=== PATIENT | male | born 1970 | race Caucasian/White ===

== ENCOUNTER 2016-07-07 12:52 | Emergency (ER) | payer MEDICAID ==
[~2016-07-07] VITALS: Ht 195.6 cm; Wt 140.9 kg
[~2016-07-07 12:52] MED LIST: ALBU8HFA IH; ALPR0.5T8 PO; ATOR20TA86 PO; DULO60CA44 PO; FLUO-191 PO; GABA-531 PO; HYDR-305 PO; HYDR25TA PO; INSNOV SQ; INSU100V12 SQ; LISI-660 PO; METF500T4 PO; NORT25 PO; PIPE3.379 IV; TAMS0.4C32 PO; VANC1.5P9 IV; ZOSY3375FZ IV
[2016-07-07 13:26] LABS: GLUCOSE,POINT OF CARE 444 MG/DL (70-110)
[2016-07-07 16:41] LABS: GLUCOSE,POINT OF CARE 508 MG/DL (70-110)
[2016-07-07 16:46] LABS: BASOPHILS % (AUTO) 1.1 % (0.0-2.0); EOSINOPHILS % (AUTO) 0.2 % (1.0-6.0); HEMATOCRIT 45.6 % (41-53); HEMOGLOBIN 15.1 g/dL (13.5-17.5); LYMPHOCYTES # (AUTO) 5.1 K/uL (1.0-4.8); LYMPHOCYTES % (AUTO) 35.5 % (22.0-44.0); MEAN CORPUSCULAR HEMOGLOBIN 27.1 pg (26.0-34.0); MEAN CORPUSCULAR VOLUME 82 fL (80-100); MONOCYTES # (AUTO) 0.9 K/uL (0.1-1.0); MONOCYTES % (AUTO) 6.4 % (2.0-9.0); NEUTROPHILS # (AUTO) 8.1 K/uL (1.8-7.7); NEUTROPHILS % (AUTO) 56.8 % (40.0-70.0); PLATELET COUNT (AUTO) 405 K/uL (150-450); RED BLOOD CELL COUNT(AUTO) 5.57 MIL/uL (4.50-5.90); RED CELL DISTRIBUTION WIDTH 14.7 % (11.5-14.5); WHITE BLOOD COUNT (AUTO) 14.3 K/uL (4.5-11.0)
[2016-07-07 17:09] LABS: ALANINE AMINOTRANSFERASE 27 U/L (12-78); ALBUMIN 3.4 g/dL (3.4-5.0); ANION GAP 11 mmol/L (8-16); ASPARTATE AMINOTRANSFERASE 11 U/L (15-37); BILIRUBIN,TOTAL 0.2 mg/dL (0.1-1.0); CALCIUM, TOTAL 8.8 mg/dL (8.8-10.5); CARBON DIOXIDE 25 mmol/L (22-29); CHLORIDE 91 mmol/L (98-107); GLOMERULAR FILTR. RATE CALC > 60 mL/min (>60); POTASSIUM 4.4 mmol/L (3.5-5.1); SODIUM SERUM 127 mmol/L (136-145); TOTAL PROTEIN, SERUM 8.1 g/dL (6.4-8.2); UREA NITROGEN, BLOOD 14 mg/dL (7-18)
[2016-07-07] MEDS ORDERED: INSULIN REGULAR, HUMAN 100 UNITS/ML SQ ONE (17:45)
[2016-07-07 18:06] LABS: ERYTHROCYTE SEDIMENTATION RATE 20 MM/HR (0-15)
[2016-07-07 18:14] VITALS: BP 121/89
[2016-07-07] MEDS ORDERED: HYDROCODONE/ACETAMINOPHEN 5-325 MG TABLET PO ONE (18:30)
== END 2016-07-07 18:32 | disposition home or self-care (01) ==
LOC: EMS 12:54
DX: E11.69 Type 2 diabetes mellitus with other specified complication (principal); M86.9 Osteomyelitis, unspecified; I11.9 Hypertensive heart disease without heart failure; F17.210 Nicotine dependence, cigarettes, uncomplicated; Z79.4 Long term (current) use of insulin
CPT/HCPCS: 36415; 73620; 80053; 82962; 85025; 85651; 96372; 99285; J1815

== ENCOUNTER 2016-07-14 14:17 | Inpatient (IN) | payer MEDICAID ==
[~2016-07-14] VITALS: Ht 195.6 cm; Wt 140.9 kg
[~2016-07-14 14:17] MED LIST changes: -PIPE3.379 IV; -VANC1.5P9 IV; -ZOSY3375FZ IV
[2016-07-14 14:46] LABS: GLUCOSE,POINT OF CARE 445 MG/DL (70-110)
[2016-07-14] MEDS ORDERED: MORPHINE SULFATE 4 MG/ML SYRINGE IVP ONE (17:15)
[2016-07-14] MEDS ORDERED: ONDANSETRON HCL 4 MG/2 ML VIAL IVP ONE (17:15)
[2016-07-14 17:28] LABS: BASOPHILS % (AUTO) 0.8 % (0.0-2.0); EOSINOPHILS % (AUTO) 0.1 % (1.0-6.0); HEMATOCRIT 45.1 % (41-53); HEMOGLOBIN 14.8 g/dL (13.5-17.5); LYMPHOCYTES # (AUTO) 4.2 K/uL (1.0-4.8); LYMPHOCYTES % (AUTO) 30.9 % (22.0-44.0); MEAN CORPUSCULAR HGB CONC 32.8 G/dL (31.0-37.0); MEAN CORPUSCULAR VOLUME 82 fL (80-100); MONOCYTES # (AUTO) 1.5 K/uL (0.1-1.0); MONOCYTES % (AUTO) 11.1 % (2.0-9.0); NEUTROPHILS # (AUTO) 7.8 K/uL (1.8-7.7); NEUTROPHILS % (AUTO) 57.1 % (40.0-70.0); PLATELET COUNT (AUTO) 491 K/uL (150-450); RED BLOOD CELL COUNT(AUTO) 5.47 MIL/uL (4.50-5.90); WHITE BLOOD COUNT (AUTO) 13.6 K/uL (4.5-11.0)
[2016-07-14 18:38] LABS: ALANINE AMINOTRANSFERASE 27 U/L (12-78); ALBUMIN 3.2 g/dL (3.4-5.0); ANION GAP 6 mmol/L (8-16); ASPARTATE AMINOTRANSFERASE 14 U/L (15-37); BILIRUBIN,TOTAL 0.2 mg/dL (0.1-1.0); CALCIUM, TOTAL 9.5 mg/dL (8.8-10.5); CARBON DIOXIDE 29 mmol/L (22-29); CHLORIDE 90 mmol/L (98-107); CREATININE 1.19 mg/dL (0.60-1.30); GLOMERULAR FILTR. RATE CALC > 60 mL/min (>60); POTASSIUM 4.2 mmol/L (3.5-5.1); SODIUM SERUM 125 mmol/L (136-145); TOTAL PROTEIN, SERUM 8.4 g/dL (6.4-8.2); UREA NITROGEN, BLOOD 12 mg/dL (7-18)
[2016-07-14] MEDS ORDERED: 0.9% SODIUM CHLORIDE 10 ML SYRINGE IVP PRN (18:45)
[2016-07-14] MEDS ORDERED: ONDANSETRON HCL 4 MG/2 ML VIAL IVP PRN ×2 (18:45→20:30)
[2016-07-14] MEDS ORDERED: SODIUM CHLORIDE 0.9% 1,000 ML IV ONE ×2 (18:45→20:45)
[2016-07-14] MEDS ORDERED: ACETAMINOPHEN 325 MG TABLET PO PRN ×2 (18:45→20:30)
[2016-07-14] MEDS ORDERED: VANCOMYCIN HCL 1 GM/D5% WATER 200 ML IV ONE (20:00)
[2016-07-14 20:11] LABS: GLUCOSE,POINT OF CARE 371 MG/DL (70-110)
[2016-07-14] MEDS ORDERED: OxyCODONE HCL/ACETAMINOPHEN 5-325 MG TABLET PO PRN (20:30)
[2016-07-14] MEDS ORDERED: ALBUTEROL SULFATE 2.5 MG/0.5 ML NEB SOLUTION NEB PRN (20:30)
[2016-07-14] MEDS ORDERED: INSULIN REGULAR, HUMAN 100 UNITS/ML IVP ONE (20:30)
[2016-07-14] MEDS ORDERED: DEXTROSE 50%-WATER 25 GM/50 ML SYRINGE IVP PRN (20:45)
[2016-07-14] MEDS ORDERED: INSULIN DETEMIR 100 UNITS/ML SQ SCH (21:00)
[2016-07-14] MEDS: LISINOPRIL 20 MG TABLET PO SCH (21:14)
[2016-07-14] MEDS: SIMVASTATIN 20 MG TABLET PO SCH (21:14)
[2016-07-14] MEDS: DOCUSATE SODIUM 100 MG CAPSULE PO SCH (21:14)
[2016-07-14 21:28] VITALS: BP 118/74
[2016-07-14] MEDS: MORPHINE SULFATE 2 MG/ML SYRINGE IVP PRN (21:39)
[2016-07-14 21:45] LABS: GLUCOSE COMMENT 1 Received Meds; GLUCOSE,POINT OF CARE 294 MG/DL (70-110)
[2016-07-14] MEDS: ALPRAZolam 0.5 MG TABLET PO PRN (23:02)
[2016-07-14] MEDS: HEPARIN SODIUM,PORCINE 5,000 UNITS/ML VIAL SQ SCH (23:03)
[2016-07-14] MEDS: INSULIN ASPART 100 UNITS/ML SQ PRN (23:03)
[2016-07-14 23:07] VITALS: BP 134/76
[2016-07-14 23:57] LABS: GLUCOSE COMMENT 1 Received Meds; GLUCOSE,POINT OF CARE 350 MG/DL (70-110)
[2016-07-15] MEDS: INSULIN ASPART 100 UNITS/ML SQ PRN ×4 (05:49→21:34)
[2016-07-15] MEDS: MORPHINE SULFATE 2 MG/ML SYRINGE IVP PRN ×4 (05:50→20:53)
[2016-07-15 05:54] VITALS: BP 131/77
[2016-07-15 06:15] LABS: GLUCOSE COMMENT 1 Received Meds; GLUCOSE,POINT OF CARE 329 MG/DL (70-110)
[2016-07-15 06:31] LABS: BASOPHILS % (AUTO) 0.6 % (0.0-2.0); EOSINOPHILS % (AUTO) 0.1 % (1.0-6.0); HEMATOCRIT 43.3 % (41-53); HEMOGLOBIN 13.6 g/dL (13.5-17.5); LYMPHOCYTES # (AUTO) 2.9 K/uL (1.0-4.8); LYMPHOCYTES % (AUTO) 21.9 % (22.0-44.0); MEAN CORPUSCULAR HEMOGLOBIN 26.4 pg (26.0-34.0); MEAN CORPUSCULAR HGB CONC 31.4 G/dL (31.0-37.0); MEAN CORPUSCULAR VOLUME 84 fL (80-100); MONOCYTES # (AUTO) 1.4 K/uL (0.1-1.0); MONOCYTES % (AUTO) 10.6 % (2.0-9.0); NEUTROPHILS # (AUTO) 8.9 K/uL (1.8-7.7); NEUTROPHILS % (AUTO) 66.8 % (40.0-70.0); PLATELET COUNT (AUTO) 442 K/uL (150-450); RED BLOOD CELL COUNT(AUTO) 5.14 MIL/uL (4.50-5.90); RED CELL DISTRIBUTION WIDTH 15.2 % (11.5-14.5); WHITE BLOOD COUNT (AUTO) 13.3 K/uL (4.5-11.0)
[2016-07-15 06:50] LABS: ANION GAP 7 mmol/L (8-16); CARBON DIOXIDE 31 mmol/L (22-29); CHLORIDE 96 mmol/L (98-107); CREATININE 1.04 mg/dL (0.60-1.30); GLOMERULAR FILTR. RATE CALC > 60 mL/min (>60); POTASSIUM 4.9 mmol/L (3.5-5.1); SODIUM SERUM 134 mmol/L (136-145); UREA NITROGEN, BLOOD 10 mg/dL (7-18)
[2016-07-15 07:23] VITALS: BP 101/57
[2016-07-15] MEDS ORDERED: GADOBUTROL 1 MMOL/ML 10 ML VIAL IVP ONE (08:33)
[2016-07-15] MEDS: PANTOPRAZOLE SODIUM 40 MG DR TABLET PO SCH (10:21)
[2016-07-15] MEDS: HEPARIN SODIUM,PORCINE 5,000 UNITS/ML VIAL SQ SCH ×2 (10:21→18:01)
[2016-07-15] MEDS: ASPIRIN 81 MG CHEWABLE TABLET PO SCH (10:22)
[2016-07-15] MEDS: DOCUSATE SODIUM 100 MG CAPSULE PO SCH ×2 (10:22→20:11)
[2016-07-15] MEDS: LISINOPRIL 20 MG TABLET PO SCH (10:22)
[2016-07-15 11:25] VITALS: BP 132/69
[2016-07-15 12:11] LABS: GLUCOSE,POINT OF CARE 324 MG/DL (70-110)
[2016-07-15 16:15] VITALS: BP 149/89
[2016-07-15 18:11] LABS: GLUCOSE,POINT OF CARE 303 MG/DL (70-110)
[2016-07-15 19:07] VITALS: BP 128/82
[2016-07-15] MEDS: SIMVASTATIN 20 MG TABLET PO SCH (20:12)
[2016-07-15] MEDS ORDERED: INSULIN DETEMIR 100 UNITS/ML SQ SCH (21:00)
[2016-07-15 21:31] LABS: GLUCOSE COMMENT 1 Received Meds; GLUCOSE,POINT OF CARE 280 MG/DL (70-110)
[2016-07-15] MEDS: NORTRIPTYLINE HCL 25 MG CAPSULE PO SCH (21:34)
[2016-07-15] MEDS: GABAPENTIN 300 MG CAPSULE PO SCH (21:34)
[2016-07-15] MEDS: FLUoxetine HCL 20 MG CAPSULE PO SCH (21:35)
[2016-07-15] MEDS: ALPRAZolam 0.5 MG TABLET PO PRN (21:35)
[2016-07-15] MEDS: TAMSULOSIN HCL 0.4 MG CAPSULE PO SCH (21:35)
[2016-07-15 23:59] VITALS: BP 104/67
[2016-07-16] MEDS: HEPARIN SODIUM,PORCINE 5,000 UNITS/ML VIAL SQ SCH ×4 (00:40→23:50)
[2016-07-16] MEDS: MORPHINE SULFATE 2 MG/ML SYRINGE IVP PRN ×6 (00:59→21:23)
[2016-07-16 04:29] VITALS: BP 115/69
[2016-07-16] MEDS: INSULIN ASPART 100 UNITS/ML SQ PRN ×4 (05:15→20:37)
[2016-07-16 06:01] LABS: GLUCOSE COMMENT 1 Received Meds; GLUCOSE,POINT OF CARE 378 MG/DL (70-110)
[2016-07-16 07:14] VITALS: BP 131/84
[2016-07-16] MEDS ORDERED: HYDROCHLOROTHIAZIDE 25 MG TABLET PO SCH (09:00)
[2016-07-16] MEDS: DULoxetine HCL 60 MG CAPSULE PO SCH (09:02)
[2016-07-16] MEDS: ASPIRIN 81 MG CHEWABLE TABLET PO SCH (09:03)
[2016-07-16] MEDS: LISINOPRIL 5 MG TABLET PO SCH (09:03)
[2016-07-16] MEDS: GABAPENTIN 300 MG CAPSULE PO SCH ×3 (09:03→20:25)
[2016-07-16] MEDS: TAMSULOSIN HCL 0.4 MG CAPSULE PO SCH (09:04)
[2016-07-16] MEDS: PANTOPRAZOLE SODIUM 40 MG DR TABLET PO SCH (09:04)
[2016-07-16] MEDS: DOCUSATE SODIUM 100 MG CAPSULE PO SCH ×2 (09:05→20:24)
[2016-07-16 11:27] LABS: GLUCOSE,POINT OF CARE 340 MG/DL (70-110)
[2016-07-16] MEDS: NICOTINE 21 MG/24 HOUR PATCH TD SCH (11:32)
[2016-07-16 12:19] VITALS: BP 122/80
[2016-07-16 15:40] VITALS: BP 110/75
[2016-07-16 18:45] LABS: GLUCOSE,POINT OF CARE 423 MG/DL (70-110)
[2016-07-16 19:39] VITALS: BP 114/74
[2016-07-16] MEDS: SIMVASTATIN 20 MG TABLET PO SCH (20:24)
[2016-07-16] MEDS: FLUoxetine HCL 20 MG CAPSULE PO SCH (20:25)
[2016-07-16] MEDS: NORTRIPTYLINE HCL 25 MG CAPSULE PO SCH (20:25)
[2016-07-16] MEDS ORDERED: INSULIN DETEMIR 100 UNITS/ML SQ SCH (21:00)
[2016-07-16] MEDS: ALPRAZolam 0.5 MG TABLET PO PRN (21:23)
[2016-07-16 23:50] VITALS: BP 144/93
[2016-07-16] MEDS: AMPICILLIN SODIUM/SULBACTAM NA 3 GM in SODIUM CHLORIDE 0.9% 100 ML IV SCH (23:50)
[2016-07-17] MEDS: MORPHINE SULFATE 2 MG/ML SYRINGE IVP PRN ×6 (02:02→23:04)
[2016-07-17 03:06] LABS: GLUCOSE,POINT OF CARE 295 MG/DL (70-110)
[2016-07-17] MEDS: AMPICILLIN SODIUM/SULBACTAM NA 3 GM in SODIUM CHLORIDE 0.9% 100 ML IV SCH ×4 (04:49→22:09)
[2016-07-17 05:05] VITALS: BP 123/73
[2016-07-17] MEDS: INSULIN ASPART 100 UNITS/ML SQ PRN ×4 (06:23→20:37)
[2016-07-17 07:32] LABS: GLUCOSE,POINT OF CARE 335 MG/DL (70-110)
[2016-07-17 07:34] LABS: BASOPHILS % (AUTO) 0.3 % (0.0-2.0); EOSINOPHILS % (AUTO) 0.2 % (1.0-6.0); HEMATOCRIT 42.4 % (41-53); HEMOGLOBIN 13.6 g/dL (13.5-17.5); LYMPHOCYTES % (AUTO) 46.9 % (22.0-44.0); MEAN CORPUSCULAR HEMOGLOBIN 26.5 pg (26.0-34.0); MEAN CORPUSCULAR HGB CONC 32.1 G/dL (31.0-37.0); MEAN CORPUSCULAR VOLUME 83 fL (80-100); MONOCYTES # (AUTO) 1.4 K/uL (0.1-1.0); MONOCYTES % (AUTO) 13.5 % (2.0-9.0); NEUTROPHILS # (AUTO) 4.1 K/uL (1.8-7.7); NEUTROPHILS % (AUTO) 39.1 % (40.0-70.0); PLATELET COUNT (AUTO) 464 K/uL (150-450); RED BLOOD CELL COUNT(AUTO) 5.13 MIL/uL (4.50-5.90); RED CELL DISTRIBUTION WIDTH 15.4 % (11.5-14.5); WHITE BLOOD COUNT (AUTO) 10.6 K/uL (4.5-11.0)
[2016-07-17 07:44] LABS: ANION GAP 9 mmol/L (8-16); CALCIUM, TOTAL 8.9 mg/dL (8.8-10.5); CARBON DIOXIDE 28 mmol/L (22-29); CHLORIDE 96 mmol/L (98-107); CREATININE 1.19 mg/dL (0.60-1.30); GLOMERULAR FILTR. RATE CALC > 60 mL/min (>60); SODIUM SERUM 133 mmol/L (136-145); UREA NITROGEN, BLOOD 13 mg/dL (7-18)
[2016-07-17 08:19] VITALS: BP 119/72
[2016-07-17] MEDS: DOCUSATE SODIUM 100 MG CAPSULE PO SCH ×2 (08:43→20:35)
[2016-07-17] MEDS: GABAPENTIN 300 MG CAPSULE PO SCH ×3 (08:43→20:35)
[2016-07-17] MEDS: ASPIRIN 81 MG CHEWABLE TABLET PO SCH (08:44)
[2016-07-17] MEDS: TAMSULOSIN HCL 0.4 MG CAPSULE PO SCH (08:44)
[2016-07-17] MEDS: LISINOPRIL 5 MG TABLET PO SCH (08:44)
[2016-07-17] MEDS: DULoxetine HCL 60 MG CAPSULE PO SCH (08:44)
[2016-07-17] MEDS: PANTOPRAZOLE SODIUM 40 MG DR TABLET PO SCH (08:45)
[2016-07-17] MEDS: HEPARIN SODIUM,PORCINE 5,000 UNITS/ML VIAL SQ SCH ×3 (08:45→23:05)
[2016-07-17] MEDS: NICOTINE 21 MG/24 HOUR PATCH TD SCH (11:07)
[2016-07-17 11:47] VITALS: BP 144/94
[2016-07-17 11:47] LABS: GLUCOSE,POINT OF CARE 355 MG/DL (70-110)
[2016-07-17 16:04] VITALS: BP 147/92
[2016-07-17] MEDS ORDERED: FLUCONAZOLE 200 MG TABLET PO ONE (16:30)
[2016-07-17] MEDS: AMINO ACIDS/PROTEIN HYDROLYS 30 ML TUBE PO SCH (18:00)
[2016-07-17 19:11] LABS: GLUCOSE,POINT OF CARE 278 MG/DL (70-110)
[2016-07-17 19:33] VITALS: BP 138/85
[2016-07-17] MEDS: FLUoxetine HCL 20 MG CAPSULE PO SCH (20:34)
[2016-07-17] MEDS: SIMVASTATIN 20 MG TABLET PO SCH (20:35)
[2016-07-17] MEDS: NORTRIPTYLINE HCL 25 MG CAPSULE PO SCH (20:35)
[2016-07-17] MEDS ORDERED: INSULIN DETEMIR 100 UNITS/ML SQ SCH (21:00)
[2016-07-17 21:51] LABS: GLUCOSE COMMENT 1 Received Meds; GLUCOSE,POINT OF CARE 330 MG/DL (70-110)
[2016-07-17] MEDS ORDERED: SODIUM CHLORIDE 0.9% 500 ML IV ONE (22:34)
[2016-07-17] MEDS: ALPRAZolam 0.5 MG TABLET PO PRN (23:04)
[2016-07-17 23:06] VITALS: BP 137/84
[2016-07-18] MEDS: AMPICILLIN SODIUM/SULBACTAM NA 3 GM in SODIUM CHLORIDE 0.9% 100 ML IV SCH ×4 (04:02→22:07)
[2016-07-18 04:03] VITALS: BP 142/94
[2016-07-18] MEDS: MORPHINE SULFATE 2 MG/ML SYRINGE IVP PRN ×5 (04:27→22:05)
[2016-07-18] MEDS: INSULIN ASPART 100 UNITS/ML SQ PRN ×4 (06:02→20:56)
[2016-07-18 06:12] LABS: GLUCOSE COMMENT 1 Received Meds; GLUCOSE,POINT OF CARE 432 MG/DL (70-110)
[2016-07-18] MEDS ORDERED: INSULIN ASPART 100 UNITS/ML SQ ONE (06:15)
[2016-07-18 08:09] VITALS: BP 129/84
[2016-07-18] MEDS: LISINOPRIL 5 MG TABLET PO SCH (09:19)
[2016-07-18] MEDS: DULoxetine HCL 60 MG CAPSULE PO SCH (09:19)
[2016-07-18] MEDS: ASPIRIN 81 MG CHEWABLE TABLET PO SCH (09:19)
[2016-07-18] MEDS: HEPARIN SODIUM,PORCINE 5,000 UNITS/ML VIAL SQ SCH ×3 (09:19→23:59)
[2016-07-18] MEDS: GABAPENTIN 300 MG CAPSULE PO SCH ×3 (09:19→20:50)
[2016-07-18] MEDS: PANTOPRAZOLE SODIUM 40 MG DR TABLET PO SCH (09:20)
[2016-07-18] MEDS: FLUCONAZOLE 200 MG TABLET PO SCH (09:20)
[2016-07-18] MEDS: TAMSULOSIN HCL 0.4 MG CAPSULE PO SCH (09:20)
[2016-07-18] MEDS: DOCUSATE SODIUM 100 MG CAPSULE PO SCH ×2 (09:20→20:51)
[2016-07-18] MEDS: MULTIVITAMINS WITH MINERALS, THERAPEUTIC TABLET PO SCH (09:20)
[2016-07-18] MEDS: INSULIN DETEMIR 100 UNITS/ML SQ SCH (09:21)
[2016-07-18] MEDS: NICOTINE 21 MG/24 HOUR PATCH TD SCH (09:24)
[2016-07-18] MEDS: AMINO ACIDS/PROTEIN HYDROLYS 30 ML TUBE PO SCH ×2 (09:28→18:25)
[2016-07-18 12:57] VITALS: BP 135/105
[2016-07-18 13:17] LABS: GLUCOSE COMMENT 1 Received Meds; GLUCOSE,POINT OF CARE 256 MG/DL (70-110)
[2016-07-18 15:15] VITALS: BP 146/101
[2016-07-18 18:17] LABS: GLUCOSE COMMENT 1 Received Meds; GLUCOSE,POINT OF CARE 319 MG/DL (70-110)
[2016-07-18 19:20] VITALS: BP 123/87
[2016-07-18] MEDS: NORTRIPTYLINE HCL 25 MG CAPSULE PO SCH (20:51)
[2016-07-18] MEDS: SIMVASTATIN 20 MG TABLET PO SCH (20:51)
[2016-07-18] MEDS: FLUoxetine HCL 20 MG CAPSULE PO SCH (20:51)
[2016-07-18 20:57] LABS: GLUCOSE COMMENT 1 Received Meds; GLUCOSE,POINT OF CARE 347 MG/DL (70-110)
[2016-07-18] MEDS ORDERED: INSULIN DETEMIR 100 UNITS/ML SQ SCH (21:00)
[2016-07-18] MEDS: ALPRAZolam 0.5 MG TABLET PO PRN (22:05)
[2016-07-18 23:24] VITALS: BP 144/90
[2016-07-19] MEDS: MORPHINE SULFATE 2 MG/ML SYRINGE IVP PRN ×5 (03:12→21:07)
[2016-07-19] MEDS: AMPICILLIN SODIUM/SULBACTAM NA 3 GM in SODIUM CHLORIDE 0.9% 100 ML IV SCH ×4 (04:04→22:24)
[2016-07-19 05:27] VITALS: BP 136/99
[2016-07-19] MEDS: INSULIN ASPART 100 UNITS/ML SQ PRN ×4 (06:09→20:50)
[2016-07-19 07:12] LABS: GLUCOSE COMMENT 1 Received Meds; GLUCOSE,POINT OF CARE 362 MG/DL (70-110)
[2016-07-19 07:53] VITALS: BP 125/86
[2016-07-19] MEDS: AMINO ACIDS/PROTEIN HYDROLYS 30 ML TUBE PO SCH ×3 (08:00→18:16)
[2016-07-19] MEDS: HEPARIN SODIUM,PORCINE 5,000 UNITS/ML VIAL SQ SCH ×2 (09:22→16:34)
[2016-07-19] MEDS: DOCUSATE SODIUM 100 MG CAPSULE PO SCH ×2 (09:23→20:44)
[2016-07-19] MEDS: DULoxetine HCL 60 MG CAPSULE PO SCH (09:23)
[2016-07-19] MEDS: ASPIRIN 81 MG CHEWABLE TABLET PO SCH (09:23)
[2016-07-19] MEDS: FLUCONAZOLE 200 MG TABLET PO SCH (09:24)
[2016-07-19] MEDS: TAMSULOSIN HCL 0.4 MG CAPSULE PO SCH (09:24)
[2016-07-19] MEDS: MULTIVITAMINS WITH MINERALS, THERAPEUTIC TABLET PO SCH (09:25)
[2016-07-19] MEDS: PANTOPRAZOLE SODIUM 40 MG DR TABLET PO SCH (09:25)
[2016-07-19] MEDS: GABAPENTIN 300 MG CAPSULE PO SCH ×3 (09:25→20:44)
[2016-07-19] MEDS: LISINOPRIL 5 MG TABLET PO SCH (09:26)
[2016-07-19] MEDS: NICOTINE 21 MG/24 HOUR PATCH TD SCH (09:26)
[2016-07-19] MEDS: INSULIN DETEMIR 100 UNITS/ML SQ SCH ×2 (09:43→20:50)
[2016-07-19 11:17] LABS: GLUCOSE,POINT OF CARE 332 MG/DL (70-110)
[2016-07-19 11:22] VITALS: BP 144/88
[2016-07-19 15:20] VITALS: BP 129/91
[2016-07-19 17:11] LABS: GLUCOSE,POINT OF CARE 318 MG/DL (70-110)
[2016-07-19 20:17] VITALS: BP 140/89
[2016-07-19] MEDS: FLUoxetine HCL 20 MG CAPSULE PO SCH (20:44)
[2016-07-19] MEDS: SIMVASTATIN 20 MG TABLET PO SCH (20:44)
[2016-07-19] MEDS: NORTRIPTYLINE HCL 25 MG CAPSULE PO SCH (20:45)
[2016-07-19 20:57] LABS: GLUCOSE COMMENT 1 Received Meds; GLUCOSE,POINT OF CARE 319 MG/DL (70-110)
[2016-07-19] MEDS: ALPRAZolam 0.5 MG TABLET PO PRN (22:24)
[2016-07-20] MEDS: HEPARIN SODIUM,PORCINE 5,000 UNITS/ML VIAL SQ SCH ×3 (00:01→16:03)
[2016-07-20 00:11] VITALS: BP 117/77
[2016-07-20] MEDS: MORPHINE SULFATE 2 MG/ML SYRINGE IVP PRN ×6 (02:15→22:14)
[2016-07-20 04:19] VITALS: BP 140/92
[2016-07-20] MEDS: AMPICILLIN SODIUM/SULBACTAM NA 3 GM in SODIUM CHLORIDE 0.9% 100 ML IV SCH ×4 (04:20→21:13)
[2016-07-20] MEDS: INSULIN ASPART 100 UNITS/ML SQ PRN ×4 (06:10→21:29)
[2016-07-20 06:22] LABS: GLUCOSE COMMENT 1 Received Meds; GLUCOSE,POINT OF CARE 376 MG/DL (70-110)
[2016-07-20 07:25] VITALS: BP 139/90
[2016-07-20 07:28] LABS: BASOPHILS # (AUTO) 0.07 K/uL (0.00-0.20); BASOPHILS % (AUTO) 0.6 % (0.0-2.0); EOSINOPHILS # (AUTO) 0.15 K/uL (0.00-0.70); EOSINOPHILS % (AUTO) 1.22 % (1.0-6.0); HEMATOCRIT 40.1 % (41-53); HEMOGLOBIN 12.9 g/dL (13.5-17.5); LYMPHOCYTES # (AUTO) 5.6 K/uL (1.0-4.8); LYMPHOCYTES % (AUTO) 46.6 % (22.0-44.0); MEAN CORPUSCULAR HEMOGLOBIN 26.7 pg (26.0-34.0); MEAN CORPUSCULAR HGB CONC 32.1 G/dL (31.0-37.0); MEAN CORPUSCULAR VOLUME 83 fL (80-100); MONOCYTES # (AUTO) 1.1 K/uL (0.1-1.0); MONOCYTES % (AUTO) 9.1 % (2.0-9.0); NEUTROPHILS # (AUTO) 5.1 K/uL (1.8-7.7); NEUTROPHILS % (AUTO) 42.6 % (40.0-70.0); PLATELET COUNT (AUTO) 427 K/uL (150-450); RED BLOOD CELL COUNT(AUTO) 4.82 MIL/uL (4.50-5.90); RED CELL DISTRIBUTION WIDTH 15.2 % (11.5-14.5)
[2016-07-20 07:52] LABS: ANION GAP 6 mmol/L (8-16); CALCIUM, TOTAL 8.6 mg/dL (8.8-10.5); CARBON DIOXIDE 31 mmol/L (22-29); CHLORIDE 98 mmol/L (98-107); CREATININE 1.15 mg/dL (0.60-1.30); GLOMERULAR FILTR. RATE CALC > 60 mL/min (>60); POTASSIUM 4.3 mmol/L (3.5-5.1); SODIUM SERUM 135 mmol/L (136-145); UREA NITROGEN, BLOOD 14 mg/dL (7-18)
[2016-07-20] MEDS: MULTIVITAMINS WITH MINERALS, THERAPEUTIC TABLET PO SCH (09:02)
[2016-07-20] MEDS: LISINOPRIL 5 MG TABLET PO SCH (09:02)
[2016-07-20] MEDS: TAMSULOSIN HCL 0.4 MG CAPSULE PO SCH (09:02)
[2016-07-20] MEDS: DOCUSATE SODIUM 100 MG CAPSULE PO SCH ×2 (09:02→21:12)
[2016-07-20] MEDS: DULoxetine HCL 60 MG CAPSULE PO SCH (09:03)
[2016-07-20] MEDS: FLUCONAZOLE 200 MG TABLET PO SCH (09:03)
[2016-07-20] MEDS: ASPIRIN 81 MG CHEWABLE TABLET PO SCH (09:03)
[2016-07-20] MEDS: NICOTINE 21 MG/24 HOUR PATCH TD SCH (09:06)
[2016-07-20] MEDS: INSULIN DETEMIR 100 UNITS/ML SQ SCH ×2 (09:07→21:28)
[2016-07-20] MEDS: GABAPENTIN 300 MG CAPSULE PO SCH ×3 (09:12→21:11)
[2016-07-20] MEDS: PANTOPRAZOLE SODIUM 40 MG DR TABLET PO SCH (09:12)
[2016-07-20] MEDS: AMINO ACIDS/PROTEIN HYDROLYS 30 ML TUBE PO SCH ×2 (09:24→18:19)
[2016-07-20 11:20] VITALS: BP 130/87
[2016-07-20 14:52] LABS: GLUCOSE COMMENT 1 Received Meds; GLUCOSE,POINT OF CARE 280 MG/DL (70-110)
[2016-07-20 16:22] VITALS: BP 140/94
[2016-07-20 19:10] VITALS: BP 143/89
[2016-07-20 21:06] LABS: GLUCOSE COMMENT 1 Received Meds; GLUCOSE,POINT OF CARE 342 MG/DL (70-110)
[2016-07-20] MEDS: SIMVASTATIN 20 MG TABLET PO SCH (21:11)
[2016-07-20] MEDS: NORTRIPTYLINE HCL 25 MG CAPSULE PO SCH (21:12)
[2016-07-20] MEDS: FLUoxetine HCL 20 MG CAPSULE PO SCH (21:12)
[2016-07-20] MEDS: ALPRAZolam 0.5 MG TABLET PO PRN (22:14)
[2016-07-21] MEDS: HEPARIN SODIUM,PORCINE 5,000 UNITS/ML VIAL SQ SCH ×4 (00:13→23:21)
[2016-07-21 04:00] VITALS: BP 135/77
[2016-07-21] MEDS: MORPHINE SULFATE 2 MG/ML SYRINGE IVP PRN ×5 (04:43→21:15)
[2016-07-21] MEDS: AMPICILLIN SODIUM/SULBACTAM NA 3 GM in SODIUM CHLORIDE 0.9% 100 ML IV SCH ×4 (04:44→21:06)
[2016-07-21] MEDS: INSULIN ASPART 100 UNITS/ML SQ PRN ×4 (05:49→21:06)
[2016-07-21 06:22] LABS: GLUCOSE,POINT OF CARE 230 MG/DL (70-110)
[2016-07-21 06:22] LABS: GLUCOSE,POINT OF CARE 280 MG/DL (70-110)
[2016-07-21 07:52] VITALS: BP 119/82
[2016-07-21] MEDS: DOCUSATE SODIUM 100 MG CAPSULE PO SCH ×2 (08:14→21:05)
[2016-07-21] MEDS: ASPIRIN 81 MG CHEWABLE TABLET PO SCH (08:14)
[2016-07-21] MEDS: MULTIVITAMINS WITH MINERALS, THERAPEUTIC TABLET PO SCH (08:14)
[2016-07-21] MEDS: PANTOPRAZOLE SODIUM 40 MG DR TABLET PO SCH (08:14)
[2016-07-21] MEDS: TAMSULOSIN HCL 0.4 MG CAPSULE PO SCH (08:14)
[2016-07-21] MEDS: LISINOPRIL 5 MG TABLET PO SCH (08:14)
[2016-07-21] MEDS: FLUCONAZOLE 200 MG TABLET PO SCH (08:15)
[2016-07-21] MEDS: INSULIN DETEMIR 100 UNITS/ML SQ SCH ×2 (08:16→21:06)
[2016-07-21] MEDS: NICOTINE 21 MG/24 HOUR PATCH TD SCH (08:18)
[2016-07-21] MEDS: DULoxetine HCL 60 MG CAPSULE PO SCH (08:24)
[2016-07-21] MEDS: GABAPENTIN 300 MG CAPSULE PO SCH ×3 (08:36→21:04)
[2016-07-21] MEDS: AMINO ACIDS/PROTEIN HYDROLYS 30 ML TUBE PO SCH ×2 (08:39→18:00)
[2016-07-21 11:31] VITALS: BP 133/79
[2016-07-21 13:37] LABS: GLUCOSE COMMENT 1 Received Meds; GLUCOSE,POINT OF CARE 319 MG/DL (70-110)
[2016-07-21 16:24] VITALS: BP 124/77
[2016-07-21 19:53] VITALS: BP 112/69
[2016-07-21 20:26] LABS: GLUCOSE COMMENT 1 Received Meds; GLUCOSE,POINT OF CARE 269 MG/DL (70-110)
[2016-07-21] MEDS: FLUoxetine HCL 20 MG CAPSULE PO SCH (21:04)
[2016-07-21] MEDS: NORTRIPTYLINE HCL 25 MG CAPSULE PO SCH (21:04)
[2016-07-21] MEDS: SIMVASTATIN 20 MG TABLET PO SCH (21:05)
[2016-07-21] MEDS: ALPRAZolam 0.5 MG TABLET PO PRN (22:06)
[2016-07-21 22:56] LABS: GLUCOSE,POINT OF CARE 233 MG/DL (70-110)
[2016-07-21 23:37] VITALS: BP 110/86
[2016-07-22] MEDS: MORPHINE SULFATE 2 MG/ML SYRINGE IVP PRN ×6 (01:09→21:39)
[2016-07-22 04:55] VITALS: BP 110/72
[2016-07-22] MEDS: INSULIN ASPART 100 UNITS/ML SQ PRN ×4 (05:18→20:59)
[2016-07-22] MEDS: AMPICILLIN SODIUM/SULBACTAM NA 3 GM in SODIUM CHLORIDE 0.9% 100 ML IV SCH ×4 (05:18→21:39)
[2016-07-22 05:52] LABS: GLUCOSE,POINT OF CARE 307 MG/DL (70-110)
[2016-07-22 07:12] VITALS: BP 117/79
[2016-07-22] MEDS: GABAPENTIN 300 MG CAPSULE PO SCH ×3 (08:02→20:46)
[2016-07-22] MEDS: MULTIVITAMINS WITH MINERALS, THERAPEUTIC TABLET PO SCH (08:03)
[2016-07-22] MEDS: NICOTINE 21 MG/24 HOUR PATCH TD SCH (08:03)
[2016-07-22] MEDS: DOCUSATE SODIUM 100 MG CAPSULE PO SCH ×2 (08:03→20:46)
[2016-07-22] MEDS: PANTOPRAZOLE SODIUM 40 MG DR TABLET PO SCH (08:03)
[2016-07-22] MEDS: TAMSULOSIN HCL 0.4 MG CAPSULE PO SCH (08:03)
[2016-07-22] MEDS: ASPIRIN 81 MG CHEWABLE TABLET PO SCH (08:04)
[2016-07-22] MEDS: LISINOPRIL 5 MG TABLET PO SCH (08:04)
[2016-07-22] MEDS: DULoxetine HCL 60 MG CAPSULE PO SCH (08:04)
[2016-07-22] MEDS: HEPARIN SODIUM,PORCINE 5,000 UNITS/ML VIAL SQ SCH ×3 (08:05→23:46)
[2016-07-22] MEDS: INSULIN DETEMIR 100 UNITS/ML SQ SCH ×2 (08:38→20:55)
[2016-07-22] MEDS: FLUCONAZOLE 200 MG TABLET PO SCH (08:38)
[2016-07-22 11:10] VITALS: BP 125/77
[2016-07-22 11:22] LABS: GLUCOSE COMMENT 1 Received Meds; GLUCOSE,POINT OF CARE 384 MG/DL (70-110)
[2016-07-22 15:40] VITALS: BP 133/79
[2016-07-22 17:37] LABS: GLUCOSE COMMENT 1 Received Meds; GLUCOSE,POINT OF CARE 210 MG/DL (70-110)
[2016-07-22] MEDS: AMINO ACIDS/PROTEIN HYDROLYS 30 ML TUBE PO SCH (18:00)
[2016-07-22 19:36] VITALS: BP 114/66
[2016-07-22] MEDS: FLUoxetine HCL 20 MG CAPSULE PO SCH (20:47)
[2016-07-22] MEDS: SIMVASTATIN 20 MG TABLET PO SCH (20:47)
[2016-07-22] MEDS: NORTRIPTYLINE HCL 25 MG CAPSULE PO SCH (20:48)
[2016-07-22] MEDS: ALPRAZolam 0.5 MG TABLET PO PRN (21:39)
[2016-07-22 23:05] VITALS: BP 128/75
[2016-07-22] MEDS: DEXTROSE 5%-0.45% SODIUM CHL 1,000 ML IV SCH (23:46)
[2016-07-23] MEDS ORDERED: ONDANSETRON HCL 4 MG/2 ML VIAL IVP ONE (00:51)
[2016-07-23] MEDS ORDERED: METOCLOPRAMIDE HCL 5 MG/ML 2 ML VIAL IVP ONE (00:51)
[2016-07-23] MEDS ORDERED: LIDOCAINE HCL/PF 2% 5 ML VIAL IM ONE (00:51)
[2016-07-23] MEDS ORDERED: NEOSTIGMINE METHYLSULFATE 1 MG/ML 10 ML VIAL IVP ONE (00:51)
[2016-07-23] MEDS ORDERED: ROCURONIUM BROMIDE 10 MG/ML 5 ML VIAL IVP ONE (00:51)
[2016-07-23] MEDS ORDERED: PROPOFOL 1% 20 ML VIAL IVP ONE (00:51)
[2016-07-23] MEDS ORDERED: PHENYLEPHRINE HCL 10 MG/ML VIAL IVP ONE (00:51)
[2016-07-23] MEDS ORDERED: ESMOLOL HCL 10 MG/ML 10 ML VIAL IVP ONE (00:51)
[2016-07-23] MEDS ORDERED: MIDAZOLAM HCL 2 MG/2 ML VIAL IVP ONE (00:51)
[2016-07-23] MEDS ORDERED: GLYCOPYRROLATE 0.2 MG/ML VIAL IM ONE (00:51)
[2016-07-23] MEDS ORDERED: FentaNYL CITRATE-PF 100 MCG/2 ML VIAL IVP ONE (00:51)
[2016-07-23] MEDS ORDERED: FentaNYL CITRATE-PF 250 MCG/5 ML VIAL IVP ONE (00:51)
[2016-07-23] MEDS: MORPHINE SULFATE 2 MG/ML SYRINGE IVP PRN ×4 (02:49→20:21)
[2016-07-23 04:20] VITALS: BP 100/61
[2016-07-23] MEDS: AMPICILLIN SODIUM/SULBACTAM NA 3 GM in SODIUM CHLORIDE 0.9% 100 ML IV SCH ×4 (04:45→22:10)
[2016-07-23 04:47] LABS: GLUCOSE COMMENT 1 Received Meds; GLUCOSE,POINT OF CARE 213 MG/DL (70-110)
[2016-07-23 06:54] LABS: BASOPHILS % (AUTO) 0.6 % (0.0-2.0); EOSINOPHILS % (AUTO) 4.1 % (1.0-6.0); HEMATOCRIT 40.8 % (41-53); HEMOGLOBIN 12.7 g/dL (13.5-17.5); LYMPHOCYTES # (AUTO) 6.1 K/uL (1.0-4.8); LYMPHOCYTES % (AUTO) 43.3 % (22.0-44.0); MEAN CORPUSCULAR HGB CONC 31.2 G/dL (31.0-37.0); MEAN CORPUSCULAR VOLUME 83 fL (80-100); MONOCYTES # (AUTO) 1.1 K/uL (0.1-1.0); MONOCYTES % (AUTO) 7.9 % (2.0-9.0); NEUTROPHILS # (AUTO) 6.2 K/uL (1.8-7.7); NEUTROPHILS % (AUTO) 44.1 % (40.0-70.0); PLATELET COUNT (AUTO) 371 K/uL (150-450); RED CELL DISTRIBUTION WIDTH 14.7 % (11.5-14.5); WHITE BLOOD COUNT (AUTO) 14.2 K/uL (4.5-11.0)
[2016-07-23 06:58] LABS: PROTHROMBIN TIME 10.6 SEC (9.4-11.6)
[2016-07-23] MEDS: INSULIN ASPART 100 UNITS/ML SQ PRN ×2 (07:00→20:22)
[2016-07-23 07:10] LABS: ANION GAP 5 mmol/L (8-16); CALCIUM, TOTAL 8.7 mg/dL (8.8-10.5); CARBON DIOXIDE 32 mmol/L (22-29); CHLORIDE 99 mmol/L (98-107); CREATINE KINASE, TOTAL 38 U/L (39-308); CREATININE 1.09 mg/dL (0.60-1.30); GLOMERULAR FILTR. RATE CALC > 60 mL/min (>60); POTASSIUM 4.2 mmol/L (3.5-5.1); SODIUM SERUM 136 mmol/L (136-145); UREA NITROGEN, BLOOD 16 mg/dL (7-18)
[2016-07-23 07:18] LABS: GLUCOSE COMMENT 1 Received Meds; GLUCOSE,POINT OF CARE 260 MG/DL (70-110)
[2016-07-23 07:22] LABS: B-TYPE NATRIURETIC PEPTIDE 10 pg/mL (0-100)
[2016-07-23] MEDS: AMINO ACIDS/PROTEIN HYDROLYS 30 ML TUBE PO SCH ×2 (08:00→18:00)
[2016-07-23 08:10] VITALS: BP 130/55
[2016-07-23] MEDS: ASPIRIN 81 MG CHEWABLE TABLET PO SCH (08:45)
[2016-07-23] MEDS: DOCUSATE SODIUM 100 MG CAPSULE PO SCH ×2 (08:50→20:21)
[2016-07-23] MEDS: MULTIVITAMINS WITH MINERALS, THERAPEUTIC TABLET PO SCH (08:50)
[2016-07-23] MEDS: PANTOPRAZOLE SODIUM 40 MG DR TABLET PO SCH (08:50)
[2016-07-23] MEDS: LISINOPRIL 5 MG TABLET PO SCH (08:50)
[2016-07-23] MEDS: GABAPENTIN 300 MG CAPSULE PO SCH ×2 (08:50→20:20)
[2016-07-23] MEDS: FLUCONAZOLE 200 MG TABLET PO SCH (08:51)
[2016-07-23] MEDS: DULoxetine HCL 60 MG CAPSULE PO SCH (08:51)
[2016-07-23] MEDS: NICOTINE 21 MG/24 HOUR PATCH TD SCH (08:53)
[2016-07-23] MEDS: INSULIN DETEMIR 100 UNITS/ML SQ SCH ×2 (08:53→20:23)
[2016-07-23] MEDS: TAMSULOSIN HCL 0.4 MG CAPSULE PO SCH (08:58)
[2016-07-23 11:37] VITALS: BP 142/86
[2016-07-23 13:32] LABS: GLUCOSE,POINT OF CARE 180 MG/DL (70-110)
[2016-07-23] MEDS ORDERED: SODIUM CL IRRIG SOLN BAG 0 ML IRRIG ONE (13:40)
[2016-07-23] MEDS ORDERED: BACITRACIN 28.4 GM OINTMENT TP ONE (13:40)
[2016-07-23] MEDS ORDERED: RINGERS SOLUTION,LACTATED 1,000 ML IV ONE ×2 (14:52→14:57)
[2016-07-23] MEDS ORDERED: SODIUM CHLORIDE 0.9% 1,000 ML IV ONE (16:30)
[2016-07-23] MEDS ORDERED: FentaNYL CITRATE-PF 100 MCG/2 ML VIAL IVP PRN (17:15)
[2016-07-23] MEDS ORDERED: BUPIVACAINE LIPOSOME/PF 1.3%-13.3MG/ML SUSPENSION 20 ML VIAL INJ ONE (17:15)
[2016-07-23] MEDS ORDERED: SODIUM CHLORIDE 0.9% 50 ML ONE (17:33)
[2016-07-23] MEDS ORDERED: HYDROmorphone 2 MG/ML SYRINGE ONE (19:00)
[2016-07-23] MEDS: HYDROmorphone 2 MG/ML SYRINGE IVP PRN ×2 (19:04→19:23)
[2016-07-23 20:18] VITALS: BP 120/80
[2016-07-23] MEDS: SIMVASTATIN 20 MG TABLET PO SCH (20:21)
[2016-07-23] MEDS: FLUoxetine HCL 20 MG CAPSULE PO SCH (20:21)
[2016-07-23] MEDS ORDERED: HYDROmorphone 2 MG/ML SYRINGE IVP PRN (21:15)
[2016-07-23] MEDS: ALPRAZolam 0.5 MG TABLET PO PRN (22:10)
[2016-07-23] MEDS ORDERED: SODIUM CHLORIDE 0.9% 250 ML IV ONE (23:54)
[2016-07-23] MEDS: NORTRIPTYLINE HCL 25 MG CAPSULE PO SCH (23:59)
[2016-07-24] VITALS (8 sets, daily range): BP systolic 96–134; BP diastolic 48–78
[2016-07-24] MEDS: DEXTROSE 5%-0.45% SODIUM CHL 1,000 ML IV SCH
[2016-07-24 00:42] LABS: GLUCOSE,POINT OF CARE 193 MG/DL (70-110)
[2016-07-24] MEDS: AMPICILLIN SODIUM/SULBACTAM NA 3 GM in SODIUM CHLORIDE 0.9% 100 ML IV SCH ×5 (05:38→21:36)
[2016-07-24] MEDS: INSULIN ASPART 100 UNITS/ML SQ PRN ×4 (05:38→21:32)
[2016-07-24 07:02] LABS: GLUCOSE,POINT OF CARE 422 MG/DL (70-110)
[2016-07-24 07:02] LABS: GLUCOSE COMMENT 1 Received Meds; GLUCOSE,POINT OF CARE 427 MG/DL (70-110)
[2016-07-24] MEDS ORDERED: HYDROmorphone 2 MG/ML SYRINGE IVP PRN (08:00)
[2016-07-24] MEDS: OXYGEN THERAPY IH SCH ×2 (08:00→20:27)
[2016-07-24] MEDS ORDERED: HYDROCODONE/ACETAMINOPHEN 5-325 MG TABLET PO PRN ×3 (08:00)
[2016-07-24] MEDS: GABAPENTIN 300 MG CAPSULE PO SCH ×3 (08:54→20:40)
[2016-07-24] MEDS: PANTOPRAZOLE SODIUM 40 MG DR TABLET PO SCH (08:54)
[2016-07-24] MEDS: TAMSULOSIN HCL 0.4 MG CAPSULE PO SCH (08:55)
[2016-07-24] MEDS: DULoxetine HCL 60 MG CAPSULE PO SCH (08:55)
[2016-07-24] MEDS: DOCUSATE SODIUM 100 MG CAPSULE PO SCH ×2 (08:55→20:27)
[2016-07-24] MEDS: ASPIRIN 81 MG CHEWABLE TABLET PO SCH (08:55)
[2016-07-24] MEDS: MULTIVITAMINS WITH MINERALS, THERAPEUTIC TABLET PO SCH (08:55)
[2016-07-24] MEDS: LISINOPRIL 5 MG TABLET PO SCH (08:55)
[2016-07-24] MEDS: NICOTINE 21 MG/24 HOUR PATCH TD SCH (08:56)
[2016-07-24] MEDS: AMINO ACIDS/PROTEIN HYDROLYS 30 ML TUBE PO SCH ×2 (08:56→18:19)
[2016-07-24] MEDS: FLUCONAZOLE 200 MG TABLET PO SCH (08:58)
[2016-07-24] MEDS: INSULIN DETEMIR 100 UNITS/ML SQ SCH ×2 (08:59→21:31)
[2016-07-24 11:32] LABS: GLUCOSE,POINT OF CARE 349 MG/DL (70-110)
[2016-07-24] MEDS: HYDROCODONE/ACETAMINOPHEN 5-325 MG TABLET PO PRN ×2 (16:22→20:32)
[2016-07-24 18:12] LABS: GLUCOSE COMMENT 1 Received Meds; GLUCOSE,POINT OF CARE 210 MG/DL (70-110)
[2016-07-24] MEDS: NORTRIPTYLINE HCL 25 MG CAPSULE PO SCH (20:28)
[2016-07-24] MEDS: FLUoxetine HCL 20 MG CAPSULE PO SCH (20:29)
[2016-07-24] MEDS: SIMVASTATIN 20 MG TABLET PO SCH (20:40)
[2016-07-24 20:57] LABS: GLUCOSE COMMENT 1 Received Meds; GLUCOSE,POINT OF CARE 202 MG/DL (70-110)
[2016-07-24] MEDS: ALPRAZolam 0.5 MG TABLET PO PRN (21:36)
[2016-07-25] MEDS: DEXTROSE 5%-0.45% SODIUM CHL 1,000 ML IV SCH
[2016-07-25] MEDS: HYDROCODONE/ACETAMINOPHEN 5-325 MG TABLET PO PRN ×3 (01:35→16:49)
[2016-07-25] MEDS: AMPICILLIN SODIUM/SULBACTAM NA 3 GM in SODIUM CHLORIDE 0.9% 100 ML IV SCH ×3 (03:38→16:51)
[2016-07-25 04:45] VITALS: BP 119/70
[2016-07-25] MEDS: INSULIN ASPART 100 UNITS/ML SQ PRN ×3 (05:58→21:49)
[2016-07-25 06:21] LABS: GLUCOSE COMMENT 1 Received Meds; GLUCOSE,POINT OF CARE 249 MG/DL (70-110)
[2016-07-25 07:53] VITALS: BP 109/80
[2016-07-25] MEDS: INSULIN DETEMIR 100 UNITS/ML SQ SCH ×2 (08:24→21:49)
[2016-07-25] MEDS: GABAPENTIN 300 MG CAPSULE PO SCH ×3 (08:24→20:24)
[2016-07-25] MEDS: DOCUSATE SODIUM 100 MG CAPSULE PO SCH ×2 (08:24→20:23)
[2016-07-25] MEDS: NICOTINE 21 MG/24 HOUR PATCH TD SCH (08:24)
[2016-07-25] MEDS: PANTOPRAZOLE SODIUM 40 MG DR TABLET PO SCH (08:24)
[2016-07-25] MEDS: MULTIVITAMINS WITH MINERALS, THERAPEUTIC TABLET PO SCH (08:25)
[2016-07-25] MEDS: LISINOPRIL 5 MG TABLET PO SCH (08:25)
[2016-07-25] MEDS: DULoxetine HCL 60 MG CAPSULE PO SCH (08:25)
[2016-07-25] MEDS: TAMSULOSIN HCL 0.4 MG CAPSULE PO SCH (08:25)
[2016-07-25] MEDS: ASPIRIN 81 MG CHEWABLE TABLET PO SCH (08:25)
[2016-07-25] MEDS: FLUCONAZOLE 200 MG TABLET PO SCH (08:25)
[2016-07-25] MEDS: OXYGEN THERAPY IH SCH (08:26)
[2016-07-25] MEDS: AMINO ACIDS/PROTEIN HYDROLYS 30 ML TUBE PO SCH ×2 (08:26→18:03)
[2016-07-25] MEDS: HYDROmorphone 2 MG/ML SYRINGE IVP PRN ×2 (10:46→20:08)
[2016-07-25 11:10] VITALS: BP 140/83
[2016-07-25 11:27] LABS: GLUCOSE COMMENT 1 Received Meds; GLUCOSE,POINT OF CARE 228 MG/DL (70-110)
[2016-07-25 15:15] VITALS: BP 140/80
[2016-07-25 18:12] LABS: GLUCOSE COMMENT 1 Received Meds; GLUCOSE,POINT OF CARE 243 MG/DL (70-110)
[2016-07-25 19:46] VITALS: BP 133/78
[2016-07-25] MEDS: NORTRIPTYLINE HCL 25 MG CAPSULE PO SCH (20:23)
[2016-07-25] MEDS: SIMVASTATIN 20 MG TABLET PO SCH (20:23)
[2016-07-25] MEDS: FLUoxetine HCL 20 MG CAPSULE PO SCH (20:23)
[2016-07-25] MEDS: ALPRAZolam 0.5 MG TABLET PO PRN (21:48)
[2016-07-25 23:24] VITALS: BP 130/75
[2016-07-26] MEDS: DEXTROSE 5%-0.45% SODIUM CHL 1,000 ML IV SCH
[2016-07-26] MEDS: HYDROCODONE/ACETAMINOPHEN 5-325 MG TABLET PO PRN ×2 (00:26→08:13)
[2016-07-26 02:16] LABS: GLUCOSE COMMENT 1 Received Meds; GLUCOSE,POINT OF CARE 211 MG/DL (70-110)
[2016-07-26] MEDS: HYDROmorphone 2 MG/ML SYRINGE IVP PRN ×3 (03:27→20:31)
[2016-07-26 04:48] VITALS: BP 142/83
[2016-07-26] MEDS: INSULIN ASPART 100 UNITS/ML SQ PRN ×4 (06:10→20:37)
[2016-07-26] MEDS: OXYGEN THERAPY IH SCH ×3 (06:12→20:00)
[2016-07-26 06:16] LABS: GLUCOSE COMMENT 1 Received Meds; GLUCOSE,POINT OF CARE 206 MG/DL (70-110)
[2016-07-26 07:49] VITALS: BP 150/92
[2016-07-26] MEDS: TAMSULOSIN HCL 0.4 MG CAPSULE PO SCH (08:13)
[2016-07-26] MEDS: PANTOPRAZOLE SODIUM 40 MG DR TABLET PO SCH (08:13)
[2016-07-26] MEDS: GABAPENTIN 300 MG CAPSULE PO SCH ×3 (08:13→19:58)
[2016-07-26] MEDS: MULTIVITAMINS WITH MINERALS, THERAPEUTIC TABLET PO SCH (08:13)
[2016-07-26] MEDS: DOCUSATE SODIUM 100 MG CAPSULE PO SCH ×2 (08:14→19:57)
[2016-07-26] MEDS: ASPIRIN 81 MG CHEWABLE TABLET PO SCH (08:14)
[2016-07-26] MEDS: DULoxetine HCL 60 MG CAPSULE PO SCH (08:14)
[2016-07-26] MEDS: FLUCONAZOLE 200 MG TABLET PO SCH (08:14)
[2016-07-26] MEDS: LISINOPRIL 5 MG TABLET PO SCH (08:14)
[2016-07-26] MEDS: AMINO ACIDS/PROTEIN HYDROLYS 30 ML TUBE PO SCH ×2 (08:15→18:00)
[2016-07-26] MEDS: NICOTINE 21 MG/24 HOUR PATCH TD SCH (08:15)
[2016-07-26] MEDS: INSULIN DETEMIR 100 UNITS/ML SQ SCH ×2 (08:21→20:38)
[2016-07-26 12:01] LABS: GLUCOSE,POINT OF CARE 256 MG/DL (70-110)
[2016-07-26 12:03] VITALS: BP 139/90
[2016-07-26 15:50] VITALS: BP 121/75
[2016-07-26 17:51] LABS: GLUCOSE COMMENT 1 Received Meds; GLUCOSE,POINT OF CARE 211 MG/DL (70-110)
[2016-07-26 19:27] VITALS: BP 123/76
[2016-07-26] MEDS: SIMVASTATIN 20 MG TABLET PO SCH (19:57)
[2016-07-26] MEDS: FLUoxetine HCL 20 MG CAPSULE PO SCH (19:57)
[2016-07-26] MEDS: NORTRIPTYLINE HCL 25 MG CAPSULE PO SCH (19:58)
[2016-07-26] MEDS: ALPRAZolam 0.5 MG TABLET PO PRN (20:31)
[2016-07-26] MEDS: ZOLPIDEM TARTRATE 5 MG TABLET PO PRN (20:31)
[2016-07-26 20:46] LABS: GLUCOSE COMMENT 1 Received Meds; GLUCOSE,POINT OF CARE 207 MG/DL (70-110)
[2016-07-26 23:46] VITALS: BP 128/78
[2016-07-27] MEDS: HEPARIN SODIUM,PORCINE 5,000 UNITS/ML VIAL SQ SCH ×4 (00:32→23:13)
[2016-07-27] MEDS: DEXTROSE 5%-0.45% SODIUM CHL 1,000 ML IV SCH (00:33)
[2016-07-27] MEDS: HYDROmorphone 2 MG/ML SYRINGE IVP PRN ×5 (03:54→20:13)
[2016-07-27 04:11] VITALS: BP 123/73
[2016-07-27] MEDS: INSULIN ASPART 100 UNITS/ML SQ PRN ×4 (05:48→20:17)
[2016-07-27 05:57] LABS: GLUCOSE,POINT OF CARE 259 MG/DL (70-110)
[2016-07-27 07:30] VITALS: BP 98/64
[2016-07-27] MEDS: LISINOPRIL 5 MG TABLET PO SCH (08:06)
[2016-07-27] MEDS: GABAPENTIN 300 MG CAPSULE PO SCH ×3 (08:06→20:10)
[2016-07-27] MEDS: DOCUSATE SODIUM 100 MG CAPSULE PO SCH ×2 (08:06→20:12)
[2016-07-27] MEDS: PANTOPRAZOLE SODIUM 40 MG DR TABLET PO SCH (08:06)
[2016-07-27] MEDS: MULTIVITAMINS WITH MINERALS, THERAPEUTIC TABLET PO SCH (08:06)
[2016-07-27] MEDS: ASPIRIN 81 MG CHEWABLE TABLET PO SCH (08:07)
[2016-07-27] MEDS: TAMSULOSIN HCL 0.4 MG CAPSULE PO SCH (08:07)
[2016-07-27] MEDS: FLUCONAZOLE 200 MG TABLET PO SCH (08:18)
[2016-07-27] MEDS: INSULIN DETEMIR 100 UNITS/ML SQ SCH ×2 (08:26→20:17)
[2016-07-27] MEDS: NICOTINE 21 MG/24 HOUR PATCH TD SCH (08:39)
[2016-07-27] MEDS: DULoxetine HCL 60 MG CAPSULE PO SCH ×2 (08:39→20:10)
[2016-07-27] MEDS: AMINO ACIDS/PROTEIN HYDROLYS 30 ML TUBE PO SCH ×2 (08:43→18:18)
[2016-07-27 11:12] VITALS: BP 117/83
[2016-07-27 12:56] LABS: GLUCOSE COMMENT 1 Received Meds; GLUCOSE,POINT OF CARE 184 MG/DL (70-110)
[2016-07-27 15:20] LABS: BASOPHILS # (AUTO) 0.23 K/uL (0.00-0.20); BASOPHILS % (AUTO) 1.6 % (0.0-2.0); EOSINOPHILS # (AUTO) 0.73 K/uL (0.00-0.70); EOSINOPHILS % (AUTO) 5.12 % (1.0-6.0); HEMATOCRIT 39.2 % (41-53); HEMOGLOBIN 12.6 g/dL (13.5-17.5); LYMPHOCYTES # (AUTO) 6.1 K/uL (1.0-4.8); LYMPHOCYTES % (AUTO) 42.6 % (22.0-44.0); MEAN CORPUSCULAR HEMOGLOBIN 26.9 pg (26.0-34.0); MEAN CORPUSCULAR HGB CONC 32.1 G/dL (31.0-37.0); MEAN CORPUSCULAR VOLUME 84 fL (80-100); MONOCYTES # (AUTO) 1.2 K/uL (0.1-1.0); MONOCYTES % (AUTO) 8.4 % (2.0-9.0); NEUTROPHILS % (AUTO) 42.3 % (40.0-70.0); PLATELET COUNT (AUTO) 392 K/uL (150-450); RED BLOOD CELL COUNT(AUTO) 4.68 MIL/uL (4.50-5.90); RED CELL DISTRIBUTION WIDTH 14.9 % (11.5-14.5); WHITE BLOOD COUNT (AUTO) 14.3 K/uL (4.5-11.0)
[2016-07-27 15:51] LABS: ALANINE AMINOTRANSFERASE 30 U/L (12-78); ALBUMIN 2.8 g/dL (3.4-5.0); ANION GAP 5 mmol/L (8-16); ASPARTATE AMINOTRANSFERASE 34 U/L (15-37); BILIRUBIN,TOTAL 0.2 mg/dL (0.1-1.0); CALCIUM, TOTAL 9.3 mg/dL (8.8-10.5); CARBON DIOXIDE 36 mmol/L (22-29); CHLORIDE 97 mmol/L (98-107); CREATININE 1.11 mg/dL (0.60-1.30); GLOMERULAR FILTR. RATE CALC > 60 mL/min (>60); SODIUM SERUM 138 mmol/L (136-145); UREA NITROGEN, BLOOD 18 mg/dL (7-18)
[2016-07-27 16:05] VITALS: BP 129/95
[2016-07-27 17:33] LABS: GLUCOSE COMMENT 1 Received Meds; GLUCOSE,POINT OF CARE 223 MG/DL (70-110)
[2016-07-27 19:44] VITALS: BP 122/76
[2016-07-27] MEDS: NORTRIPTYLINE HCL 25 MG CAPSULE PO SCH (20:10)
[2016-07-27] MEDS: FLUoxetine HCL 20 MG CAPSULE PO SCH (20:11)
[2016-07-27] MEDS: SIMVASTATIN 20 MG TABLET PO SCH (20:12)
[2016-07-27] MEDS: ALPRAZolam 0.5 MG TABLET PO PRN (20:13)
[2016-07-27 20:56] LABS: GLUCOSE,POINT OF CARE 224 MG/DL (70-110)
[2016-07-27 23:36] VITALS: BP 129/82
[2016-07-28] MEDS: HYDROmorphone 2 MG/ML SYRINGE IVP PRN ×4 (00:07→21:17)
[2016-07-28] MEDS: DEXTROSE 5%-0.45% SODIUM CHL 1,000 ML IV SCH (04:24)
[2016-07-28] MEDS: INSULIN ASPART 100 UNITS/ML SQ PRN ×4 (05:20→21:29)
[2016-07-28 05:31] LABS: GLUCOSE COMMENT 1 Received Meds; GLUCOSE,POINT OF CARE 179 MG/DL (70-110)
[2016-07-28 05:42] VITALS: BP 114/64
[2016-07-28] MEDS: OXYGEN THERAPY IH SCH (08:00)
[2016-07-28] MEDS: GABAPENTIN 300 MG CAPSULE PO SCH ×3 (08:17→20:14)
[2016-07-28] MEDS: LISINOPRIL 5 MG TABLET PO SCH (08:17)
[2016-07-28] MEDS: DOCUSATE SODIUM 100 MG CAPSULE PO SCH ×2 (08:18→20:12)
[2016-07-28] MEDS: NICOTINE 21 MG/24 HOUR PATCH TD SCH (08:18)
[2016-07-28] MEDS: FLUCONAZOLE 200 MG TABLET PO SCH (08:18)
[2016-07-28] MEDS: PANTOPRAZOLE SODIUM 40 MG DR TABLET PO SCH (08:19)
[2016-07-28] MEDS: MULTIVITAMINS WITH MINERALS, THERAPEUTIC TABLET PO SCH (08:19)
[2016-07-28] MEDS: TAMSULOSIN HCL 0.4 MG CAPSULE PO SCH (08:19)
[2016-07-28] MEDS: HEPARIN SODIUM,PORCINE 5,000 UNITS/ML VIAL SQ SCH ×3 (08:19→23:52)
[2016-07-28 08:20] VITALS: BP 138/92
[2016-07-28] MEDS: AMINO ACIDS/PROTEIN HYDROLYS 30 ML TUBE PO SCH ×2 (08:20→18:38)
[2016-07-28] MEDS: INSULIN DETEMIR 100 UNITS/ML SQ SCH ×2 (08:22→21:29)
[2016-07-28] MEDS: HYDROCODONE/ACETAMINOPHEN 5-325 MG TABLET PO PRN (08:23)
[2016-07-28] MEDS: ASPIRIN 81 MG CHEWABLE TABLET PO SCH (08:26)
[2016-07-28 11:19] VITALS: BP 124/86
[2016-07-28 16:08] VITALS: BP 124/92
[2016-07-28 19:16] VITALS: BP 129/78
[2016-07-28 19:16] LABS: GLUCOSE COMMENT 1 Received Meds; GLUCOSE,POINT OF CARE 242 MG/DL (70-110)
[2016-07-28 19:16] LABS: GLUCOSE COMMENT 1 Received Meds; GLUCOSE,POINT OF CARE 214 MG/DL (70-110)
[2016-07-28] MEDS: SIMVASTATIN 20 MG TABLET PO SCH (20:12)
[2016-07-28] MEDS: NORTRIPTYLINE HCL 25 MG CAPSULE PO SCH (20:13)
[2016-07-28] MEDS: FLUoxetine HCL 20 MG CAPSULE PO SCH (20:13)
[2016-07-28] MEDS: ALPRAZolam 0.5 MG TABLET PO PRN (21:58)
[2016-07-28 22:59] VITALS: BP 133/89
[2016-07-29] MEDS: DEXTROSE 5%-0.45% SODIUM CHL 1,000 ML IV SCH
[2016-07-29] MEDS: HYDROmorphone 2 MG/ML SYRINGE IVP PRN ×4 (02:09→20:28)
[2016-07-29 04:20] VITALS: BP 141/82
[2016-07-29 06:02] LABS: GLUCOSE COMMENT 1 Received Meds; GLUCOSE,POINT OF CARE 165 MG/DL (70-110)
[2016-07-29] MEDS: INSULIN ASPART 100 UNITS/ML SQ PRN ×4 (06:17→21:39)
[2016-07-29 06:36] LABS: GLUCOSE COMMENT 1 Received Meds; GLUCOSE,POINT OF CARE 160 MG/DL (70-110)
[2016-07-29 06:57] LABS: BASOPHILS % (AUTO) 0.9 % (0.0-2.0); EOSINOPHILS % (AUTO) 9.2 % (1.0-6.0); HEMATOCRIT 41.3 % (41-53); HEMOGLOBIN 13.2 g/dL (13.5-17.5); LYMPHOCYTES % (AUTO) 46.9 % (22.0-44.0); MEAN CORPUSCULAR HEMOGLOBIN 26.5 pg (26.0-34.0); MEAN CORPUSCULAR HGB CONC 31.9 G/dL (31.0-37.0); MEAN CORPUSCULAR VOLUME 83 fL (80-100); MONOCYTES % (AUTO) 7.6 % (2.0-9.0); NEUTROPHILS # (AUTO) 4.5 K/uL (1.8-7.7); NEUTROPHILS % (AUTO) 35.4 % (40.0-70.0); PLATELET COUNT (AUTO) 448 K/uL (150-450); RED BLOOD CELL COUNT(AUTO) 4.96 MIL/uL (4.50-5.90); RED CELL DISTRIBUTION WIDTH 14.7 % (11.5-14.5); WHITE BLOOD COUNT (AUTO) 12.8 K/uL (4.5-11.0)
[2016-07-29 07:18] LABS: ALANINE AMINOTRANSFERASE 31 U/L (12-78); ALBUMIN 2.9 g/dL (3.4-5.0); ANION GAP 5 mmol/L (8-16); ASPARTATE AMINOTRANSFERASE 25 U/L (15-37); BILIRUBIN,TOTAL 0.2 mg/dL (0.1-1.0); CALCIUM, TOTAL 9.4 mg/dL (8.8-10.5); CARBON DIOXIDE 35 mmol/L (22-29); CHLORIDE 100 mmol/L (98-107); CREATININE 1.02 mg/dL (0.60-1.30); GLOMERULAR FILTR. RATE CALC > 60 mL/min (>60); POTASSIUM 4.1 mmol/L (3.5-5.1); SODIUM SERUM 140 mmol/L (136-145); TOTAL PROTEIN, SERUM 8.2 g/dL (6.4-8.2); UREA NITROGEN, BLOOD 19 mg/dL (7-18)
[2016-07-29 07:30] VITALS: BP 122/73
[2016-07-29] MEDS: OXYGEN THERAPY IH SCH ×2 (08:00→23:40)
[2016-07-29] MEDS: INSULIN DETEMIR 100 UNITS/ML SQ SCH ×2 (08:31→21:37)
[2016-07-29] MEDS: DOCUSATE SODIUM 100 MG CAPSULE PO SCH ×2 (08:32→20:20)
[2016-07-29] MEDS: FLUCONAZOLE 200 MG TABLET PO SCH (08:32)
[2016-07-29] MEDS: PANTOPRAZOLE SODIUM 40 MG DR TABLET PO SCH (08:32)
[2016-07-29] MEDS: GABAPENTIN 300 MG CAPSULE PO SCH ×3 (08:32→20:19)
[2016-07-29] MEDS: DULoxetine HCL 60 MG CAPSULE PO SCH (08:32)
[2016-07-29] MEDS: TAMSULOSIN HCL 0.4 MG CAPSULE PO SCH (08:33)
[2016-07-29] MEDS: MULTIVITAMINS WITH MINERALS, THERAPEUTIC TABLET PO SCH (08:33)
[2016-07-29] MEDS: NICOTINE 21 MG/24 HOUR PATCH TD SCH (08:33)
[2016-07-29] MEDS: ASPIRIN 81 MG CHEWABLE TABLET PO SCH (08:33)
[2016-07-29] MEDS: LISINOPRIL 5 MG TABLET PO SCH (08:35)
[2016-07-29] MEDS: HEPARIN SODIUM,PORCINE 5,000 UNITS/ML VIAL SQ SCH ×3 (08:35→23:38)
[2016-07-29] MEDS: AMINO ACIDS/PROTEIN HYDROLYS 30 ML TUBE PO SCH ×2 (08:51→17:44)
[2016-07-29 11:40] VITALS: BP 126/83
[2016-07-29 11:57] LABS: GLUCOSE,POINT OF CARE 244 MG/DL (70-110)
[2016-07-29] MEDS: HYDROCODONE/ACETAMINOPHEN 5-325 MG TABLET PO PRN (12:00)
[2016-07-29 15:56] VITALS: BP 125/75
[2016-07-29 18:07] LABS: GLUCOSE COMMENT 1 Received Meds; GLUCOSE,POINT OF CARE 154 MG/DL (70-110)
[2016-07-29 20:12] VITALS: BP 126/95
[2016-07-29] MEDS: FLUoxetine HCL 20 MG CAPSULE PO SCH (20:19)
[2016-07-29] MEDS: NORTRIPTYLINE HCL 25 MG CAPSULE PO SCH (20:20)
[2016-07-29] MEDS: SIMVASTATIN 20 MG TABLET PO SCH (20:20)
[2016-07-29] MEDS: ALPRAZolam 0.5 MG TABLET PO PRN (21:43)
[2016-07-29 23:40] VITALS: BP 107/62
[2016-07-30] MEDS: HYDROCODONE/ACETAMINOPHEN 5-325 MG TABLET PO PRN (03:35)
[2016-07-30 03:57] LABS: GLUCOSE COMMENT 1 Received Meds; GLUCOSE,POINT OF CARE 180 MG/DL (70-110)
[2016-07-30 04:00] VITALS: BP 105/59
[2016-07-30] MEDS: INSULIN ASPART 100 UNITS/ML SQ PRN ×3 (06:01→20:48)
[2016-07-30 07:08] VITALS: BP 126/71
[2016-07-30] MEDS: OXYGEN THERAPY IH SCH (08:00)
[2016-07-30 08:01] LABS: GLUCOSE,POINT OF CARE 177 MG/DL (70-110)
[2016-07-30] MEDS: TAMSULOSIN HCL 0.4 MG CAPSULE PO SCH (08:16)
[2016-07-30] MEDS: ASPIRIN 81 MG CHEWABLE TABLET PO SCH (08:17)
[2016-07-30] MEDS: MULTIVITAMINS WITH MINERALS, THERAPEUTIC TABLET PO SCH (08:17)
[2016-07-30] MEDS: DOCUSATE SODIUM 100 MG CAPSULE PO SCH ×2 (08:17→20:45)
[2016-07-30] MEDS: PANTOPRAZOLE SODIUM 40 MG DR TABLET PO SCH (08:17)
[2016-07-30] MEDS: LISINOPRIL 5 MG TABLET PO SCH (08:17)
[2016-07-30] MEDS: HEPARIN SODIUM,PORCINE 5,000 UNITS/ML VIAL SQ SCH ×2 (08:17→16:56)
[2016-07-30] MEDS: DULoxetine HCL 60 MG CAPSULE PO SCH (08:18)
[2016-07-30] MEDS: INSULIN DETEMIR 100 UNITS/ML SQ SCH ×2 (08:20→20:47)
[2016-07-30] MEDS: NICOTINE 21 MG/24 HOUR PATCH TD SCH (08:24)
[2016-07-30] MEDS: AMINO ACIDS/PROTEIN HYDROLYS 30 ML TUBE PO SCH ×2 (08:25→18:09)
[2016-07-30] MEDS: FLUCONAZOLE 200 MG TABLET PO SCH (08:28)
[2016-07-30] MEDS: HYDROmorphone 2 MG/ML SYRINGE IVP PRN ×4 (08:30→22:05)
[2016-07-30] MEDS: GABAPENTIN 300 MG CAPSULE PO SCH ×3 (09:08→20:45)
[2016-07-30 11:09] VITALS: BP 120/77
[2016-07-30 11:59] LABS: GLUCOSE COMMENT 1 Received Meds; GLUCOSE,POINT OF CARE 221 MG/DL (70-110)
[2016-07-30] MEDS ORDERED: SODIUM CL IRRIG SOLN BOTTLE 250 ML IRRIG ONE (15:01)
[2016-07-30 15:21] VITALS: BP 122/75
[2016-07-30 17:47] LABS: GLUCOSE COMMENT 1 Received Meds; GLUCOSE,POINT OF CARE 233 MG/DL (70-110)
[2016-07-30 19:29] VITALS: BP 137/86
[2016-07-30] MEDS: FLUoxetine HCL 20 MG CAPSULE PO SCH (20:45)
[2016-07-30] MEDS: NORTRIPTYLINE HCL 25 MG CAPSULE PO SCH (20:46)
[2016-07-30] MEDS: SIMVASTATIN 20 MG TABLET PO SCH (20:52)
[2016-07-30 21:21] LABS: GLUCOSE COMMENT 1 Received Meds; GLUCOSE,POINT OF CARE 186 MG/DL (70-110)
[2016-07-30] MEDS: ALPRAZolam 0.5 MG TABLET PO PRN (22:04)
[2016-07-30 23:23] VITALS: BP 114/71
[2016-07-31] MEDS: HEPARIN SODIUM,PORCINE 5,000 UNITS/ML VIAL SQ SCH ×3 (00:14→16:08)
[2016-07-31] MEDS: HYDROmorphone 2 MG/ML SYRINGE IVP PRN ×5 (02:08→20:33)
[2016-07-31 04:22] VITALS: BP 115/61
[2016-07-31] MEDS: INSULIN ASPART 100 UNITS/ML SQ PRN ×4 (06:16→20:29)
[2016-07-31 06:31] LABS: GLUCOSE COMMENT 1 Received Meds; GLUCOSE,POINT OF CARE 214 MG/DL (70-110)
[2016-07-31 07:58] VITALS: BP 114/79
[2016-07-31] MEDS: OXYGEN THERAPY IH SCH (08:00)
[2016-07-31] MEDS: AMINO ACIDS/PROTEIN HYDROLYS 30 ML TUBE PO SCH ×2 (08:00→18:00)
[2016-07-31] MEDS: FLUCONAZOLE 200 MG TABLET PO SCH (08:44)
[2016-07-31] MEDS: GABAPENTIN 300 MG CAPSULE PO SCH ×3 (08:44→20:20)
[2016-07-31] MEDS: NICOTINE 21 MG/24 HOUR PATCH TD SCH (08:45)
[2016-07-31] MEDS: TAMSULOSIN HCL 0.4 MG CAPSULE PO SCH (08:45)
[2016-07-31] MEDS: DOCUSATE SODIUM 100 MG CAPSULE PO SCH ×2 (08:45→20:20)
[2016-07-31] MEDS: DULoxetine HCL 60 MG CAPSULE PO SCH (08:46)
[2016-07-31] MEDS: MULTIVITAMINS WITH MINERALS, THERAPEUTIC TABLET PO SCH (08:46)
[2016-07-31] MEDS: ASPIRIN 81 MG CHEWABLE TABLET PO SCH (08:46)
[2016-07-31] MEDS: PANTOPRAZOLE SODIUM 40 MG DR TABLET PO SCH (08:46)
[2016-07-31] MEDS: LISINOPRIL 5 MG TABLET PO SCH (08:46)
[2016-07-31] MEDS: INSULIN DETEMIR 100 UNITS/ML SQ SCH ×2 (08:54→20:31)
[2016-07-31 12:17] LABS: GLUCOSE,POINT OF CARE 212 MG/DL (70-110)
[2016-07-31 15:58] VITALS: BP 120/76
[2016-07-31] MEDS: SIMVASTATIN 20 MG TABLET PO SCH (20:20)
[2016-07-31] MEDS: NORTRIPTYLINE HCL 25 MG CAPSULE PO SCH (20:20)
[2016-07-31] MEDS: FLUoxetine HCL 20 MG CAPSULE PO SCH (20:20)
[2016-07-31 21:07] LABS: GLUCOSE,POINT OF CARE 202 MG/DL (70-110)
[2016-07-31 22:02] LABS: GLUCOSE COMMENT 1 Received Meds; GLUCOSE,POINT OF CARE 194 MG/DL (70-110)
[2016-07-31] MEDS: ALPRAZolam 0.5 MG TABLET PO PRN (22:05)
[2016-07-31] MEDS: ZOLPIDEM TARTRATE 5 MG TABLET PO PRN (22:06)
[2016-07-31 23:38] VITALS: BP 138/82
[2016-08-01] VITALS (7 sets, daily range): BP systolic 111–131; BP diastolic 79–91
[2016-08-01] MEDS: HYDROmorphone 2 MG/ML SYRINGE IVP PRN ×5 (03:33→18:57)
[2016-08-01] MEDS: HEPARIN SODIUM,PORCINE 5,000 UNITS/ML VIAL SQ SCH ×3 (03:33→15:50)
[2016-08-01] MEDS: INSULIN ASPART 100 UNITS/ML SQ PRN ×3 (05:25→17:25)
[2016-08-01] MEDS: NICOTINE 21 MG/24 HOUR PATCH TD SCH (08:05)
[2016-08-01] MEDS: DOCUSATE SODIUM 100 MG CAPSULE PO SCH (08:05)
[2016-08-01] MEDS: GABAPENTIN 300 MG CAPSULE PO SCH ×2 (08:05→15:50)
[2016-08-01] MEDS: FLUCONAZOLE 200 MG TABLET PO SCH (08:05)
[2016-08-01] MEDS: PANTOPRAZOLE SODIUM 40 MG DR TABLET PO SCH (08:06)
[2016-08-01] MEDS: DULoxetine HCL 60 MG CAPSULE PO SCH (08:06)
[2016-08-01] MEDS: ASPIRIN 81 MG CHEWABLE TABLET PO SCH (08:06)
[2016-08-01] MEDS: LISINOPRIL 5 MG TABLET PO SCH (08:06)
[2016-08-01] MEDS: MULTIVITAMINS WITH MINERALS, THERAPEUTIC TABLET PO SCH (08:06)
[2016-08-01] MEDS: TAMSULOSIN HCL 0.4 MG CAPSULE PO SCH (08:06)
[2016-08-01 08:21] LABS: GLUCOSE COMMENT 1 Received Meds; GLUCOSE,POINT OF CARE 247 MG/DL (70-110)
[2016-08-01] MEDS: INSULIN DETEMIR 100 UNITS/ML SQ SCH (08:21)
[2016-08-01] MEDS: AMINO ACIDS/PROTEIN HYDROLYS 30 ML TUBE PO SCH ×2 (08:22→17:46)
[2016-08-01 11:57] LABS: GLUCOSE COMMENT 1 Received Meds; GLUCOSE,POINT OF CARE 228 MG/DL (70-110)
[2016-08-01 17:52] LABS: GLUCOSE COMMENT 1 Received Meds; GLUCOSE,POINT OF CARE 294 MG/DL (70-110)
== END 2016-08-01 19:50 | DRG 711 ==
LOC: EMS 14:20 → 6N 19:52
PROVIDERS: ADMIT Internal Medicine; ATTEND Internal Medicine
PROC: 0Y6H0Z2 Detachment at Right Lower Leg, Mid, Open Approach (ICD-10-PCS; principal; 2016-07-23 17:10)
DX: T81.4XXA Infection following a procedure, initial encounter (principal); B37.7 Candidal sepsis; E11.52 Type 2 diabetes mellitus with diabetic peripheral angiopathy with gangrene; E11.40 Type 2 diabetes mellitus with diabetic neuropathy, unspecified; E44.1 Mild protein-calorie malnutrition; L03.115 Cellulitis of right lower limb; M86.671 Other chronic osteomyelitis, right ankle and foot; E66.9 Obesity, unspecified; F17.210 Nicotine dependence, cigarettes, uncomplicated; I10 Essential (primary) hypertension; M19.90 Unspecified osteoarthritis, unspecified site; M14.679 Charcot's joint, unspecified ankle and foot; M14.672 Charcot's joint, left ankle and foot; E78.5 Hyperlipidemia, unspecified; N40.0 Benign prostatic hyperplasia without lower urinary tract symptoms; E11.69 Type 2 diabetes mellitus with other specified complication; E11.65 Type 2 diabetes mellitus with hyperglycemia; I25.10 Atherosclerotic heart disease of native coronary artery without angina pectoris; J44.9 Chronic obstructive pulmonary disease, unspecified; Z68.36 Body mass index [BMI] 36.0-36.9, adult; Z89.421 Acquired absence of other right toe(s); Z79.899 Other long term (current) drug therapy; Z79.891 Long term (current) use of opiate analgesic; Z79.4 Long term (current) use of insulin; Z89.412 Acquired absence of left great toe; Z89.422 Acquired absence of other left toe(s); Z91.19 Patient's noncompliance with other medical treatment and regimen; Z86.14 Personal history of Methicillin resistant Staphylococcus aureus infection; Y83.5 Amputation of limb(s) as the cause of abnormal reaction of the patient, or of later complication, without mention of misadventure at the time of the procedure; Y92.89 Other specified places as the place of occurrence of the external cause; Y93.89 Activity, other specified
CPT/HCPCS: 73720; 82962; 83735; 85651; 86140; 86850; 86900; 86901; 87040; 87070; 87081; 87106; 87147; 87186; 87205; 88307; 93005; 93306; 94640; 96361; 96365; 96375; 97162; 97530; 99285; A9585; C9290; J0295; J1170; J1644; J1815; J2250; J2270; J2370; J2405; J2704; J2765; J3010; J3370; J3490; J7030; J7040; J7050; J7120

== ENCOUNTER 2016-09-17 10:00 | Emergency (ER) | payer MEDICAID ==
[~2016-09-17] VITALS: Ht 195.6 cm; Wt 135.9 kg
[2016-09-17 10:11] LABS: GLUCOSE,POINT OF CARE 226 MG/DL (70-110)
[2016-09-17] MEDS ORDERED: IBUPROFEN 800 MG TABLET PO ONE (10:30)
[2016-09-17] MEDS ORDERED: AMOX TR/POT CLAV 500 MG/125 MG TABLET PO ONE (10:30)
[2016-09-17 10:35] VITALS: BP 141/96
== END 2016-09-17 11:18 | disposition home or self-care (01) ==
LOC: EMS 10:03
DX: S90.122A Contusion of left lesser toe(s) without damage to nail, initial encounter (principal); I10 Essential (primary) hypertension; F17.210 Nicotine dependence, cigarettes, uncomplicated; E11.9 Type 2 diabetes mellitus without complications; X58.XXXA Exposure to other specified factors, initial encounter; Y93.89 Activity, other specified; Y92.89 Other specified places as the place of occurrence of the external cause; Y99.8 Other external cause status
CPT/HCPCS: 82962; 99283

== ENCOUNTER 2016-10-05 12:24 | Inpatient (IN) | payer MEDICAID ==
[~2016-10-05] VITALS: Ht 195.6 cm; Wt 146.5 kg
[2016-10-05 12:47] LABS: GLUCOSE COMMENT 1 Repeated; GLUCOSE,POINT OF CARE 398 MG/DL (70-110)
[2016-10-05] MEDS ORDERED: INSULIN REGULAR, HUMAN 100 UNITS/ML IVP ONE ×2 (14:15→15:00)
[2016-10-05] MEDS ORDERED: SODIUM CHLORIDE 0.9% 1,000 ML IV ONE (14:15)
[2016-10-05 14:57] LABS: GLUCOSE,POINT OF CARE 301 MG/DL (70-110)
[2016-10-05 15:12] LABS: BASOPHILS % (AUTO) 1.7 % (0.0-2.0); EOSINOPHILS % (AUTO) 3.7 % (1.0-6.0); HEMATOCRIT 48.3 % (41-53); HEMOGLOBIN 15.5 g/dL (13.5-17.5); LYMPHOCYTES # (AUTO) 5.5 K/uL (1.0-4.8); LYMPHOCYTES % (AUTO) 36.2 % (22.0-44.0); MEAN CORPUSCULAR HEMOGLOBIN 26.8 pg (26.0-34.0); MEAN CORPUSCULAR HGB CONC 32.1 G/dL (31.0-37.0); MEAN CORPUSCULAR VOLUME 83 fL (80-100); MONOCYTES # (AUTO) 1.1 K/uL (0.1-1.0); MONOCYTES % (AUTO) 7.2 % (2.0-9.0); NEUTROPHILS # (AUTO) 7.7 K/uL (1.8-7.7); NEUTROPHILS % (AUTO) 51.2 % (40.0-70.0); PLATELET COUNT (AUTO) 346 K/uL (150-450); RED BLOOD CELL COUNT(AUTO) 5.78 MIL/uL (4.50-5.90); RED CELL DISTRIBUTION WIDTH 16.8 % (11.5-14.5); WHITE BLOOD COUNT (AUTO) 15.1 K/uL (4.5-11.0)
[2016-10-05 15:30] LABS: ANION GAP 9 mmol/L (8-16); CALCIUM, TOTAL 9.4 mg/dL (8.8-10.5); CARBON DIOXIDE 29 mmol/L (22-29); CHLORIDE 97 mmol/L (98-107); GLOMERULAR FILTR. RATE CALC > 60 mL/min (>60); POTASSIUM 4.6 mmol/L (3.5-5.1); SODIUM SERUM 135 mmol/L (136-145); UREA NITROGEN, BLOOD 16 mg/dL (7-18)
[2016-10-05] MEDS ORDERED: HYDROCODONE/ACETAMINOPHEN 5-325 MG TABLET PO PRN (15:30)
[2016-10-05] MEDS ORDERED: DEXTROSE 50%-WATER 25 GM/50 ML SYRINGE IVP PRN ×3 (15:30→21:45)
[2016-10-05] MEDS ORDERED: HYDROCODONE/ACETAMINOPHEN 5-325 MG TABLET PO ONE (15:30)
[2016-10-05] MEDS ORDERED: OxyCODONE HCL/ACETAMINOPHEN 5-325 MG TABLET PO PRN (15:30)
[2016-10-05] MEDS ORDERED: INSULIN REGULAR, HUMAN 100 UNITS/ML SQ PRN ×2 (15:30→21:45)
[2016-10-05] MEDS ORDERED: ACETAMINOPHEN 325 MG TABLET PO PRN (15:30)
[2016-10-05] MEDS ORDERED: ONDANSETRON HCL 4 MG/2 ML VIAL IVP PRN (15:30)
[2016-10-05] MEDS ORDERED: VANCOMYCIN HCL 1 GM/D5% WATER 200 ML IV ONE ×2 (15:30→22:00)
[2016-10-05 15:34] LABS: ALBUMIN 3.6 g/dL (3.4-5.0); BILIRUBIN,TOTAL 0.3 mg/dL (0.1-1.0); TOTAL PROTEIN, SERUM 8.3 g/dL (6.4-8.2)
[2016-10-05 15:57] LABS: ASPARTATE AMINOTRANSFERASE 24 U/L (15-37)
[2016-10-05 15:58] LABS: ALANINE AMINOTRANSFERASE 47 U/L (12-78)
[2016-10-05 16:41] LABS: ERYTHROCYTE SEDIMENTATION RATE 11 MM/HR (0-15)
[2016-10-05 17:28] VITALS: BP 150/103
[2016-10-05 19:56] VITALS: BP 146/97
[2016-10-05] MEDS ORDERED: ALBUTEROL SULFATE HFA 90 MCG/PUFF 8 GM INHALER IH PRN (21:00)
[2016-10-05] MEDS: NORTRIPTYLINE HCL 25 MG CAPSULE PO SCH (21:00)
[2016-10-05] MEDS: FLUoxetine HCL 20 MG CAPSULE PO SCH (21:00)
[2016-10-05] MEDS ORDERED: SODIUM CHLORIDE 0.9% 250 ML IV ONE (21:29)
[2016-10-05] MEDS: ATORVASTATIN CALCIUM 20 MG TABLET PO SCH (21:32)
[2016-10-05] MEDS: GABAPENTIN 300 MG CAPSULE PO SCH (21:32)
[2016-10-05] MEDS: INSULIN DETEMIR 100 UNITS/ML SQ SCH (21:35)
[2016-10-05] MEDS ORDERED: INSULIN ASPART 100 UNITS/ML SQ PRN (21:45)
[2016-10-05] MEDS ORDERED: DEXTROSE 50%-WATER 25 GM/50 ML SYG IVP PRN (22:00)
[2016-10-05] MEDS: INSULIN ASPART 100 UNITS/ML SQ PRN (22:42)
[2016-10-05] MEDS: ALPRAZolam 0.5 MG TABLET PO PRN (22:50)
[2016-10-05 23:59] VITALS: BP 125/89
[2016-10-06] MEDS ORDERED: VANCOMYCIN HCL 1 GM/D5% WATER 200 ML IV ONE
[2016-10-06] MEDS: HYDROCODONE/ACETAMINOPHEN 10-325 MG TABLET PO PRN ×2 (00:55→05:24)
[2016-10-06 04:57] VITALS: BP 118/65
[2016-10-06] MEDS: INSULIN ASPART 100 UNITS/ML SQ PRN ×4 (05:30→20:44)
[2016-10-06 06:54] LABS: EOSINOPHILS % (AUTO) 4.9 % (1.0-6.0); HEMATOCRIT 42.2 % (41-53); HEMOGLOBIN 13.5 g/dL (13.5-17.5); LYMPHOCYTES # (AUTO) 6.3 K/uL (1.0-4.8); LYMPHOCYTES % (AUTO) 44.3 % (22.0-44.0); MEAN CORPUSCULAR HEMOGLOBIN 26.6 pg (26.0-34.0); MEAN CORPUSCULAR HGB CONC 32.1 G/dL (31.0-37.0); MEAN CORPUSCULAR VOLUME 83 fL (80-100); MONOCYTES % (AUTO) 6.9 % (2.0-9.0); NEUTROPHILS # (AUTO) 6.1 K/uL (1.8-7.7); NEUTROPHILS % (AUTO) 42.9 % (40.0-70.0); PLATELET COUNT (AUTO) 342 K/uL (150-450); RED CELL DISTRIBUTION WIDTH 16.8 % (11.5-14.5); WHITE BLOOD COUNT (AUTO) 14.2 K/uL (4.5-11.0)
[2016-10-06 07:32] LABS: GLUCOSE,POINT OF CARE 248 MG/DL (70-110)
[2016-10-06 07:32] LABS: GLUCOSE,POINT OF CARE 332 MG/DL (70-110)
[2016-10-06 07:34] LABS: ANION GAP 10 mmol/L (8-16); CALCIUM, TOTAL 8.6 mg/dL (8.8-10.5); CARBON DIOXIDE 28 mmol/L (22-29); CHLORIDE 100 mmol/L (98-107); GLOMERULAR FILTR. RATE CALC > 60 mL/min (>60); POTASSIUM 4.2 mmol/L (3.5-5.1); SODIUM SERUM 138 mmol/L (136-145); UREA NITROGEN, BLOOD 16 mg/dL (7-18)
[2016-10-06 07:42] VITALS: BP 130/86
[2016-10-06] MEDS: GABAPENTIN 300 MG CAPSULE PO SCH ×3 (08:06→20:42)
[2016-10-06] MEDS: HYDROCHLOROTHIAZIDE 25 MG TABLET PO SCH (08:07)
[2016-10-06] MEDS: LISINOPRIL 5 MG TABLET PO SCH (08:07)
[2016-10-06] MEDS: MetFORMIN HCL 500 MG TABLET PO SCH ×2 (08:07→18:31)
[2016-10-06] MEDS: TAMSULOSIN HCL 0.4 MG CAPSULE PO SCH (08:07)
[2016-10-06] MEDS: DULoxetine HCL 60 MG CAPSULE PO SCH (08:08)
[2016-10-06] MEDS: VANCOMYCIN HCL 1.5 GM in DEXTROSE 5%-WATER 250 ML IV SCH ×2 (08:08→16:00)
[2016-10-06 09:34] LABS: ERYTHROCYTE SEDIMENTATION RATE 7 MM/HR (0-15)
[2016-10-06] MEDS: HYDROmorphone 2 MG/ML SYRINGE IVP PRN ×4 (09:43→22:34)
[2016-10-06 11:47] LABS: GLUCOSE COMMENT 1 Received Meds; GLUCOSE,POINT OF CARE 295 MG/DL (70-110)
[2016-10-06 12:35] VITALS: BP 134/88
[2016-10-06] MEDS ORDERED: 0.9% SODIUM CHLORIDE 10 ML SYRINGE IVP PRN (12:45)
[2016-10-06 13:55] LABS: ANION GAP 8 mmol/L (8-16); CALCIUM, TOTAL 8.9 mg/dL (8.8-10.5); CARBON DIOXIDE 29 mmol/L (22-29); CHLORIDE 98 mmol/L (98-107); GLOMERULAR FILTR. RATE CALC > 60 mL/min (>60); POTASSIUM 4.1 mmol/L (3.5-5.1); SODIUM SERUM 135 mmol/L (136-145); UREA NITROGEN, BLOOD 15 mg/dL (7-18)
[2016-10-06 16:11] VITALS: BP 133/90
[2016-10-06 17:06] LABS: GLUCOSE COMMENT 1 Received Meds; GLUCOSE,POINT OF CARE 305 MG/DL (70-110)
[2016-10-06 19:40] VITALS: BP 129/81
[2016-10-06] MEDS: ATORVASTATIN CALCIUM 20 MG TABLET PO SCH (20:42)
[2016-10-06] MEDS: NORTRIPTYLINE HCL 25 MG CAPSULE PO SCH (20:42)
[2016-10-06] MEDS: FLUoxetine HCL 20 MG CAPSULE PO SCH (20:42)
[2016-10-06] MEDS: INSULIN DETEMIR 100 UNITS/ML SQ SCH (20:45)
[2016-10-06] MEDS: ALPRAZolam 0.5 MG TABLET PO PRN (22:34)
[2016-10-06 23:04] VITALS: BP 135/73
[2016-10-06 23:52] LABS: GLUCOSE,POINT OF CARE 290 MG/DL (70-110)
[2016-10-07] MEDS: HYDROmorphone 2 MG/ML SYRINGE IVP PRN ×5 (02:40→20:20)
[2016-10-07 04:42] VITALS: BP 119/74
[2016-10-07] MEDS: INSULIN ASPART 100 UNITS/ML SQ PRN ×4 (06:40→20:23)
[2016-10-07 07:08] LABS: BASOPHILS % (AUTO) 0.6 % (0.0-2.0); EOSINOPHILS % (AUTO) 2.6 % (1.0-6.0); HEMATOCRIT 44.3 % (41-53); HEMOGLOBIN 14.2 g/dL (13.5-17.5); LYMPHOCYTES # (AUTO) 4.1 K/uL (1.0-4.8); LYMPHOCYTES % (AUTO) 27.8 % (22.0-44.0); MEAN CORPUSCULAR HEMOGLOBIN 26.5 pg (26.0-34.0); MEAN CORPUSCULAR HGB CONC 32.1 G/dL (31.0-37.0); MEAN CORPUSCULAR VOLUME 83 fL (80-100); MONOCYTES # (AUTO) 1.1 K/uL (0.1-1.0); MONOCYTES % (AUTO) 7.6 % (2.0-9.0); NEUTROPHILS # (AUTO) 9.1 K/uL (1.8-7.7); NEUTROPHILS % (AUTO) 61.4 % (40.0-70.0); PLATELET COUNT (AUTO) 358 K/uL (150-450); RED BLOOD CELL COUNT(AUTO) 5.36 MIL/uL (4.50-5.90); RED CELL DISTRIBUTION WIDTH 16.2 % (11.5-14.5); WHITE BLOOD COUNT (AUTO) 14.8 K/uL (4.5-11.0)
[2016-10-07 07:18] LABS: HEMOGLOBIN A1C 9.9 % (4.5-6.2)
[2016-10-07 07:19] LABS: ANION GAP 8 mmol/L (8-16); CALCIUM, TOTAL 8.7 mg/dL (8.8-10.5); CARBON DIOXIDE 29 mmol/L (22-29); CHLORIDE 95 mmol/L (98-107); CHOL/HDL RATIO 5.1 (4.2-7.3); CREATININE 0.98 mg/dL (0.60-1.30); GLOMERULAR FILTR. RATE CALC > 60 mL/min (>60); POTASSIUM 4.2 mmol/L (3.5-5.1); SODIUM SERUM 132 mmol/L (136-145); UREA NITROGEN, BLOOD 18 mg/dL (7-18)
[2016-10-07 07:27] VITALS: BP 124/85
[2016-10-07] MEDS: LISINOPRIL 5 MG TABLET PO SCH (07:55)
[2016-10-07] MEDS: TAMSULOSIN HCL 0.4 MG CAPSULE PO SCH (07:55)
[2016-10-07] MEDS: DULoxetine HCL 60 MG CAPSULE PO SCH (07:56)
[2016-10-07] MEDS: HYDROCHLOROTHIAZIDE 25 MG TABLET PO SCH (07:56)
[2016-10-07] MEDS: MetFORMIN HCL 500 MG TABLET PO SCH ×2 (07:56→17:19)
[2016-10-07] MEDS: MULTIVITAMINS WITH MINERALS, THERAPEUTIC TABLET PO SCH (07:56)
[2016-10-07] MEDS: GABAPENTIN 300 MG CAPSULE PO SCH ×3 (07:57→20:16)
[2016-10-07] MEDS: VANCOMYCIN HCL 1.5 GM in DEXTROSE 5%-WATER 250 ML IV SCH ×5 (07:58→23:44)
[2016-10-07 08:37] LABS: GLUCOSE,POINT OF CARE 295 MG/DL (70-110)
[2016-10-07 11:02] VITALS: BP 115/69
[2016-10-07 11:57] LABS: GLUCOSE,POINT OF CARE 356 MG/DL (70-110)
[2016-10-07 15:57] VITALS: BP 112/80
[2016-10-07 17:27] LABS: GLUCOSE COMMENT 1 Received Meds; GLUCOSE,POINT OF CARE 230 MG/DL (70-110)
[2016-10-07] MEDS: ATORVASTATIN CALCIUM 20 MG TABLET PO SCH (20:15)
[2016-10-07] MEDS: FLUoxetine HCL 20 MG CAPSULE PO SCH (20:16)
[2016-10-07] MEDS: NORTRIPTYLINE HCL 25 MG CAPSULE PO SCH (20:17)
[2016-10-07 20:22] VITALS: BP 125/78
[2016-10-07] MEDS: INSULIN DETEMIR 100 UNITS/ML SQ SCH (20:22)
[2016-10-07 20:41] LABS: GLUCOSE,POINT OF CARE 294 MG/DL (70-110)
[2016-10-07 23:52] VITALS: BP 113/58
[2016-10-08] MEDS: HYDROmorphone 2 MG/ML SYRINGE IVP PRN ×6 (00:55→22:45)
[2016-10-08 05:13] VITALS: BP 139/64
[2016-10-08] MEDS: INSULIN ASPART 100 UNITS/ML SQ PRN ×3 (06:33→20:22)
[2016-10-08 08:12] LABS: GLUCOSE,POINT OF CARE 286 MG/DL (70-110)
[2016-10-08] MEDS: GABAPENTIN 300 MG CAPSULE PO SCH ×3 (08:35→20:23)
[2016-10-08] MEDS: VANCOMYCIN HCL 1.5 GM in DEXTROSE 5%-WATER 250 ML IV SCH ×2 (08:35→17:01)
[2016-10-08] MEDS: HYDROCHLOROTHIAZIDE 25 MG TABLET PO SCH (08:36)
[2016-10-08] MEDS: DULoxetine HCL 60 MG CAPSULE PO SCH (08:36)
[2016-10-08] MEDS: LISINOPRIL 5 MG TABLET PO SCH (08:36)
[2016-10-08] MEDS: MetFORMIN HCL 500 MG TABLET PO SCH ×2 (08:36→17:02)
[2016-10-08] MEDS: TAMSULOSIN HCL 0.4 MG CAPSULE PO SCH (08:36)
[2016-10-08] MEDS: MULTIVITAMINS WITH MINERALS, THERAPEUTIC TABLET PO SCH (08:36)
[2016-10-08] MEDS: MUPIROCIN CALCIUM 2% 22 GM OINTMENT TP SCH (08:36)
[2016-10-08 09:57] LABS: ANION GAP 9 mmol/L (8-16); CARBON DIOXIDE 28 mmol/L (22-29); CHLORIDE 97 mmol/L (98-107); GLOMERULAR FILTR. RATE CALC > 60 mL/min (>60); SODIUM SERUM 134 mmol/L (136-145); UREA NITROGEN, BLOOD 18 mg/dL (7-18)
[2016-10-08 14:23] VITALS: BP 112/78
[2016-10-08 16:26] VITALS: BP 121/69
[2016-10-08 17:47] LABS: GLUCOSE COMMENT 1 Received Meds; GLUCOSE,POINT OF CARE 302 MG/DL (70-110)
[2016-10-08 18:34] VITALS: BP 126/76
[2016-10-08 20:11] VITALS: BP 101/59
[2016-10-08] MEDS: INSULIN DETEMIR 100 UNITS/ML SQ SCH (20:23)
[2016-10-08] MEDS: ATORVASTATIN CALCIUM 20 MG TABLET PO SCH (20:23)
[2016-10-08] MEDS: NORTRIPTYLINE HCL 25 MG CAPSULE PO SCH (20:24)
[2016-10-08] MEDS: FLUoxetine HCL 20 MG CAPSULE PO SCH (20:24)
[2016-10-08 20:37] LABS: GLUCOSE COMMENT 1 Received Meds; GLUCOSE,POINT OF CARE 279 MG/DL (70-110)
[2016-10-08 23:07] VITALS: BP 113/64
[2016-10-09] MEDS: ALPRAZolam 0.5 MG TABLET PO PRN ×2 (00:01→22:39)
[2016-10-09] MEDS: VANCOMYCIN HCL 1.5 GM in DEXTROSE 5%-WATER 250 ML IV SCH ×2 (00:02→09:33)
[2016-10-09 04:24] VITALS: BP 104/62
[2016-10-09] MEDS ORDERED: SODIUM CHLORIDE 0.9% 500 ML IV ONE (04:54)
[2016-10-09] MEDS: INSULIN ASPART 100 UNITS/ML SQ PRN ×4 (06:25→20:54)
[2016-10-09] MEDS: HYDROmorphone 2 MG/ML SYRINGE IVP PRN ×5 (06:26→22:39)
[2016-10-09 06:47] LABS: GLUCOSE COMMENT 1 Received Meds; GLUCOSE,POINT OF CARE 303 MG/DL (70-110)
[2016-10-09 08:21] VITALS: BP 115/81
[2016-10-09 09:11] LABS: ANION GAP 6 mmol/L (8-16); CALCIUM, TOTAL 8.6 mg/dL (8.8-10.5); CARBON DIOXIDE 29 mmol/L (22-29); CHLORIDE 99 mmol/L (98-107); CREATININE 1.02 mg/dL (0.60-1.30); GLOMERULAR FILTR. RATE CALC > 60 mL/min (>60); POTASSIUM 4.8 mmol/L (3.5-5.1); SODIUM SERUM 134 mmol/L (136-145); UREA NITROGEN, BLOOD 17 mg/dL (7-18)
[2016-10-09] MEDS: MULTIVITAMINS WITH MINERALS, THERAPEUTIC TABLET PO SCH (09:30)
[2016-10-09] MEDS: MetFORMIN HCL 500 MG TABLET PO SCH ×2 (09:30→17:41)
[2016-10-09] MEDS: GABAPENTIN 300 MG CAPSULE PO SCH ×3 (09:30→20:51)
[2016-10-09] MEDS: LISINOPRIL 5 MG TABLET PO SCH (09:31)
[2016-10-09] MEDS: TAMSULOSIN HCL 0.4 MG CAPSULE PO SCH (09:31)
[2016-10-09] MEDS: DULoxetine HCL 60 MG CAPSULE PO SCH (09:31)
[2016-10-09] MEDS: HYDROCHLOROTHIAZIDE 25 MG TABLET PO SCH (09:31)
[2016-10-09] MEDS: MUPIROCIN CALCIUM 2% 22 GM OINTMENT TP SCH (09:34)
[2016-10-09 11:55] VITALS: BP 121/73
[2016-10-09 12:07] LABS: GLUCOSE COMMENT 1 Received Meds; GLUCOSE,POINT OF CARE 260 MG/DL (70-110)
[2016-10-09 15:50] VITALS: BP 112/84
[2016-10-09] MEDS: VANCOMYCIN HCL 1.25 GM in DEXTROSE 5%-WATER 250 ML IV SCH ×2 (16:01→23:16)
[2016-10-09 19:34] LABS: GLUCOSE,POINT OF CARE 236 MG/DL (70-110)
[2016-10-09 19:46] VITALS: BP 126/78
[2016-10-09] MEDS: ATORVASTATIN CALCIUM 20 MG TABLET PO SCH (20:51)
[2016-10-09] MEDS: NORTRIPTYLINE HCL 25 MG CAPSULE PO SCH (20:51)
[2016-10-09] MEDS: FLUoxetine HCL 20 MG CAPSULE PO SCH (20:51)
[2016-10-09] MEDS: INSULIN DETEMIR 100 UNITS/ML SQ SCH (20:52)
[2016-10-10] VITALS (7 sets, daily range): BP systolic 107–131; BP diastolic 68–84
[2016-10-10 00:42] LABS: GLUCOSE COMMENT 1 Received Meds; GLUCOSE,POINT OF CARE 225 MG/DL (70-110)
[2016-10-10] MEDS: HYDROmorphone 2 MG/ML SYRINGE IVP PRN ×5 (03:02→20:02)
[2016-10-10] MEDS: INSULIN ASPART 100 UNITS/ML SQ PRN ×3 (05:37→21:34)
[2016-10-10 06:07] LABS: GLUCOSE COMMENT 1 Received Meds; GLUCOSE,POINT OF CARE 306 MG/DL (70-110)
[2016-10-10 06:19] LABS: ANION GAP 8 mmol/L (8-16); CALCIUM, TOTAL 8.5 mg/dL (8.8-10.5); CARBON DIOXIDE 28 mmol/L (22-29); CHLORIDE 98 mmol/L (98-107); CREATININE 1.09 mg/dL (0.60-1.30); GLOMERULAR FILTR. RATE CALC > 60 mL/min (>60); POTASSIUM 4.2 mmol/L (3.5-5.1); SODIUM SERUM 134 mmol/L (136-145); UREA NITROGEN, BLOOD 18 mg/dL (7-18)
[2016-10-10] MEDS ORDERED: LORazepam 1 MG TABLET PO ONE (08:00)
[2016-10-10] MEDS ORDERED: LORazepam 1 MG TABLET ONE (08:02)
[2016-10-10] MEDS ORDERED: GADOBUTROL 1 MMOL/ML 10 ML VIAL IVP ONE (08:12)
[2016-10-10] MEDS: DULoxetine HCL 60 MG CAPSULE PO SCH (09:35)
[2016-10-10] MEDS: MULTIVITAMINS WITH MINERALS, THERAPEUTIC TABLET PO SCH (09:35)
[2016-10-10] MEDS: MetFORMIN HCL 500 MG TABLET PO SCH ×2 (09:36→17:15)
[2016-10-10] MEDS: LISINOPRIL 5 MG TABLET PO SCH (09:36)
[2016-10-10] MEDS: TAMSULOSIN HCL 0.4 MG CAPSULE PO SCH (09:36)
[2016-10-10] MEDS: HYDROCHLOROTHIAZIDE 25 MG TABLET PO SCH (09:36)
[2016-10-10] MEDS: GABAPENTIN 300 MG CAPSULE PO SCH ×3 (09:37→20:46)
[2016-10-10] MEDS: VANCOMYCIN HCL 1.25 GM in DEXTROSE 5%-WATER 250 ML IV SCH ×2 (09:38→15:47)
[2016-10-10] MEDS: MUPIROCIN CALCIUM 2% 22 GM OINTMENT TP SCH (11:31)
[2016-10-10 16:57] LABS: GLUCOSE,POINT OF CARE 278 MG/DL (70-110)
[2016-10-10] MEDS: NORTRIPTYLINE HCL 25 MG CAPSULE PO SCH (20:46)
[2016-10-10] MEDS: ATORVASTATIN CALCIUM 20 MG TABLET PO SCH (20:47)
[2016-10-10] MEDS: FLUoxetine HCL 20 MG CAPSULE PO SCH (20:47)
[2016-10-10] MEDS: INSULIN DETEMIR 100 UNITS/ML SQ SCH (21:38)
[2016-10-11] MEDS: VANCOMYCIN HCL 1.25 GM in DEXTROSE 5%-WATER 250 ML IV SCH ×4 (00:17→23:57)
[2016-10-11] MEDS: HYDROmorphone 2 MG/ML SYRINGE IVP PRN ×5 (03:06→20:47)
[2016-10-11 05:22] LABS: GLUCOSE COMMENT 1 Received Meds; GLUCOSE,POINT OF CARE 314 MG/DL (70-110)
[2016-10-11 05:47] LABS: GLUCOSE COMMENT 1 Received Meds; GLUCOSE,POINT OF CARE 246 MG/DL (70-110)
[2016-10-11] MEDS: INSULIN ASPART 100 UNITS/ML SQ PRN ×3 (05:51→20:50)
[2016-10-11 07:56] LABS: ANION GAP 6 mmol/L (8-16); CALCIUM, TOTAL 8.7 mg/dL (8.8-10.5); CARBON DIOXIDE 30 mmol/L (22-29); CHLORIDE 100 mmol/L (98-107); GLOMERULAR FILTR. RATE CALC > 60 mL/min (>60); POTASSIUM 4.4 mmol/L (3.5-5.1); SODIUM SERUM 136 mmol/L (136-145); UREA NITROGEN, BLOOD 17 mg/dL (7-18)
[2016-10-11 08:01] VITALS: BP 109/79
[2016-10-11] MEDS: MULTIVITAMINS WITH MINERALS, THERAPEUTIC TABLET PO SCH (08:10)
[2016-10-11] MEDS: LISINOPRIL 5 MG TABLET PO SCH (08:10)
[2016-10-11] MEDS: GABAPENTIN 300 MG CAPSULE PO SCH ×3 (08:10→20:43)
[2016-10-11] MEDS: HYDROCHLOROTHIAZIDE 25 MG TABLET PO SCH (08:10)
[2016-10-11] MEDS: MetFORMIN HCL 500 MG TABLET PO SCH ×2 (08:10→17:05)
[2016-10-11] MEDS: DULoxetine HCL 60 MG CAPSULE PO SCH (08:11)
[2016-10-11] MEDS: TAMSULOSIN HCL 0.4 MG CAPSULE PO SCH (08:11)
[2016-10-11] MEDS: MUPIROCIN CALCIUM 2% 22 GM OINTMENT TP SCH (09:00)
[2016-10-11 11:41] VITALS: BP 114/82
[2016-10-11 11:47] LABS: GLUCOSE,POINT OF CARE 259 MG/DL (70-110)
[2016-10-11 16:56] VITALS: BP 108/80
[2016-10-11 17:12] LABS: GLUCOSE COMMENT 1 Received Meds; GLUCOSE,POINT OF CARE 210 MG/DL (70-110)
[2016-10-11 20:32] VITALS: BP 114/78
[2016-10-11] MEDS: NORTRIPTYLINE HCL 25 MG CAPSULE PO SCH (20:43)
[2016-10-11] MEDS: ALPRAZolam 0.5 MG TABLET PO PRN (20:43)
[2016-10-11] MEDS: ATORVASTATIN CALCIUM 20 MG TABLET PO SCH (20:43)
[2016-10-11] MEDS: FLUoxetine HCL 20 MG CAPSULE PO SCH (20:43)
[2016-10-11] MEDS: INSULIN DETEMIR 100 UNITS/ML SQ SCH (20:50)
[2016-10-11 23:27] VITALS: BP 107/86
[2016-10-11 23:53] LABS: GLUCOSE COMMENT 1 Received Meds; GLUCOSE,POINT OF CARE 261 MG/DL (70-110)
[2016-10-12] MEDS: HYDROmorphone 2 MG/ML SYRINGE IVP PRN ×6 (00:38→22:36)
[2016-10-12 04:23] VITALS: BP 136/74
[2016-10-12] MEDS: INSULIN ASPART 100 UNITS/ML SQ PRN ×4 (05:31→20:49)
[2016-10-12 06:02] LABS: GLUCOSE COMMENT 1 Received Meds; GLUCOSE,POINT OF CARE 265 MG/DL (70-110)
[2016-10-12 07:00] LABS: ANION GAP 9 mmol/L (8-16); CALCIUM, TOTAL 8.8 mg/dL (8.8-10.5); CARBON DIOXIDE 29 mmol/L (22-29); CHLORIDE 95 mmol/L (98-107); GLOMERULAR FILTR. RATE CALC > 60 mL/min (>60); POTASSIUM 4.1 mmol/L (3.5-5.1); SODIUM SERUM 133 mmol/L (136-145); UREA NITROGEN, BLOOD 18 mg/dL (7-18)
[2016-10-12] MEDS: VANCOMYCIN HCL 1.25 GM in DEXTROSE 5%-WATER 250 ML IV SCH ×3 (07:36→23:23)
[2016-10-12 07:50] VITALS: BP 123/77
[2016-10-12] MEDS: HYDROCHLOROTHIAZIDE 25 MG TABLET PO SCH (08:13)
[2016-10-12] MEDS: GABAPENTIN 300 MG CAPSULE PO SCH ×3 (08:13→20:43)
[2016-10-12] MEDS: DULoxetine HCL 60 MG CAPSULE PO SCH (08:14)
[2016-10-12] MEDS: MULTIVITAMINS WITH MINERALS, THERAPEUTIC TABLET PO SCH (08:14)
[2016-10-12] MEDS: LISINOPRIL 5 MG TABLET PO SCH (08:14)
[2016-10-12] MEDS: TAMSULOSIN HCL 0.4 MG CAPSULE PO SCH (08:14)
[2016-10-12] MEDS: MetFORMIN HCL 500 MG TABLET PO SCH ×2 (08:14→18:12)
[2016-10-12] MEDS: MUPIROCIN CALCIUM 2% 22 GM OINTMENT TP SCH (08:14)
[2016-10-12 11:42] LABS: GLUCOSE,POINT OF CARE 280 MG/DL (70-110)
[2016-10-12 12:14] VITALS: BP 105/60
[2016-10-12 18:29] VITALS: BP 121/92
[2016-10-12 19:39] VITALS: BP 107/64
[2016-10-12 19:57] LABS: GLUCOSE,POINT OF CARE 245 MG/DL (70-110)
[2016-10-12] MEDS: ATORVASTATIN CALCIUM 20 MG TABLET PO SCH (20:43)
[2016-10-12] MEDS: ALPRAZolam 0.5 MG TABLET PO PRN (20:43)
[2016-10-12] MEDS: NORTRIPTYLINE HCL 25 MG CAPSULE PO SCH (20:43)
[2016-10-12] MEDS: FLUoxetine HCL 20 MG CAPSULE PO SCH (20:44)
[2016-10-12] MEDS: INSULIN DETEMIR 100 UNITS/ML SQ SCH (20:49)
[2016-10-12 21:27] LABS: GLUCOSE COMMENT 1 Received Meds; GLUCOSE,POINT OF CARE 237 MG/DL (70-110)
[2016-10-12 23:18] VITALS: BP 109/74
[2016-10-13] MEDS: HYDROmorphone 2 MG/ML SYRINGE IVP PRN ×6 (02:50→23:36)
[2016-10-13 04:00] VITALS: BP 104/58
[2016-10-13] MEDS: INSULIN ASPART 100 UNITS/ML SQ PRN ×4 (05:58→21:32)
[2016-10-13 06:47] LABS: GLUCOSE COMMENT 1 Received Meds; GLUCOSE,POINT OF CARE 255 MG/DL (70-110)
[2016-10-13 06:54] LABS: ANION GAP 5 mmol/L (8-16); CALCIUM, TOTAL 8.9 mg/dL (8.8-10.5); CARBON DIOXIDE 33 mmol/L (22-29); CHLORIDE 98 mmol/L (98-107); CREATININE 1.13 mg/dL (0.60-1.30); GLOMERULAR FILTR. RATE CALC > 60 mL/min (>60); POTASSIUM 4.2 mmol/L (3.5-5.1); SODIUM SERUM 136 mmol/L (136-145); UREA NITROGEN, BLOOD 18 mg/dL (7-18)
[2016-10-13 07:15] VITALS: BP 115/80
[2016-10-13] MEDS: MULTIVITAMINS WITH MINERALS, THERAPEUTIC TABLET PO SCH (08:21)
[2016-10-13] MEDS: TAMSULOSIN HCL 0.4 MG CAPSULE PO SCH (08:21)
[2016-10-13] MEDS: DULoxetine HCL 60 MG CAPSULE PO SCH (08:21)
[2016-10-13] MEDS: LISINOPRIL 5 MG TABLET PO SCH (08:21)
[2016-10-13] MEDS: HYDROCHLOROTHIAZIDE 25 MG TABLET PO SCH (08:21)
[2016-10-13] MEDS: MetFORMIN HCL 500 MG TABLET PO SCH ×2 (08:21→17:30)
[2016-10-13] MEDS: GABAPENTIN 300 MG CAPSULE PO SCH ×3 (08:21→21:20)
[2016-10-13] MEDS: MUPIROCIN CALCIUM 2% 22 GM OINTMENT TP SCH (08:22)
[2016-10-13] MEDS: VANCOMYCIN HCL 1 GM/D5% WATER 200 ML IV SCH ×3 (08:28→23:35)
[2016-10-13 12:22] LABS: GLUCOSE COMMENT 1 Received Meds; GLUCOSE,POINT OF CARE 264 MG/DL (70-110)
[2016-10-13 12:47] VITALS: BP 119/73
[2016-10-13 15:49] VITALS: BP 112/65
[2016-10-13 17:42] LABS: GLUCOSE COMMENT 1 Received Meds; GLUCOSE,POINT OF CARE 195 MG/DL (70-110)
[2016-10-13 20:20] VITALS: BP 118/85
[2016-10-13] MEDS: NORTRIPTYLINE HCL 25 MG CAPSULE PO SCH (21:19)
[2016-10-13] MEDS: ATORVASTATIN CALCIUM 20 MG TABLET PO SCH (21:19)
[2016-10-13] MEDS: FLUoxetine HCL 20 MG CAPSULE PO SCH (21:20)
[2016-10-13] MEDS: INSULIN DETEMIR 100 UNITS/ML SQ SCH (21:29)
[2016-10-13] MEDS: ALPRAZolam 0.5 MG TABLET PO PRN (23:35)
[2016-10-14 04:11] VITALS: BP 131/80
[2016-10-14] MEDS: HYDROmorphone 2 MG/ML SYRINGE IVP PRN ×5 (04:13→20:15)
[2016-10-14 06:17] LABS: GLUCOSE,POINT OF CARE 251 MG/DL (70-110)
[2016-10-14 06:18] LABS: GLUCOSE,POINT OF CARE 233 MG/DL (70-110)
[2016-10-14] MEDS: INSULIN ASPART 100 UNITS/ML SQ PRN ×4 (06:27→21:04)
[2016-10-14 06:57] LABS: ANION GAP 5 mmol/L (8-16); CALCIUM, TOTAL 9.2 mg/dL (8.8-10.5); CARBON DIOXIDE 34 mmol/L (22-29); CHLORIDE 97 mmol/L (98-107); GLOMERULAR FILTR. RATE CALC > 60 mL/min (>60); POTASSIUM 4.7 mmol/L (3.5-5.1); SODIUM SERUM 136 mmol/L (136-145); UREA NITROGEN, BLOOD 17 mg/dL (7-18)
[2016-10-14 08:13] VITALS: BP 115/69
[2016-10-14] MEDS: MetFORMIN HCL 500 MG TABLET PO SCH ×2 (08:13→17:36)
[2016-10-14] MEDS: DULoxetine HCL 60 MG CAPSULE PO SCH (08:13)
[2016-10-14] MEDS: TAMSULOSIN HCL 0.4 MG CAPSULE PO SCH (08:13)
[2016-10-14] MEDS: HYDROCHLOROTHIAZIDE 25 MG TABLET PO SCH (08:14)
[2016-10-14] MEDS: GABAPENTIN 300 MG CAPSULE PO SCH ×3 (08:14→20:16)
[2016-10-14] MEDS: LISINOPRIL 5 MG TABLET PO SCH (08:15)
[2016-10-14] MEDS: MULTIVITAMINS WITH MINERALS, THERAPEUTIC TABLET PO SCH (08:15)
[2016-10-14] MEDS: VANCOMYCIN HCL 1 GM/D5% WATER 200 ML IV SCH ×3 (09:34→23:26)
[2016-10-14 11:26] LABS: GLUCOSE,POINT OF CARE 304 MG/DL (70-110)
[2016-10-14 11:42] VITALS: BP 103/71
[2016-10-14 16:00] VITALS: BP 102/69
[2016-10-14] MEDS: MUPIROCIN CALCIUM 2% 22 GM OINTMENT TP SCH (16:13)
[2016-10-14 19:12] LABS: GLUCOSE COMMENT 1 Received Meds; GLUCOSE,POINT OF CARE 191 MG/DL (70-110)
[2016-10-14] MEDS: ATORVASTATIN CALCIUM 20 MG TABLET PO SCH (20:17)
[2016-10-14] MEDS: NORTRIPTYLINE HCL 25 MG CAPSULE PO SCH (20:17)
[2016-10-14] MEDS: FLUoxetine HCL 20 MG CAPSULE PO SCH (20:17)
[2016-10-14 20:29] VITALS: BP 124/81
[2016-10-14 20:56] LABS: GLUCOSE COMMENT 1 Received Meds; GLUCOSE,POINT OF CARE 186 MG/DL (70-110)
[2016-10-14] MEDS: INSULIN DETEMIR 100 UNITS/ML SQ SCH (21:05)
[2016-10-14] MEDS: ALPRAZolam 0.5 MG TABLET PO PRN (22:09)
[2016-10-14] MEDS ORDERED: SODIUM CHLORIDE 0.9% 500 ML IV ONE (23:16)
[2016-10-14 23:45] VITALS: BP 126/72
[2016-10-15] MEDS: HYDROmorphone 2 MG/ML SYRINGE IVP PRN ×7 (00:21→23:08)
[2016-10-15 04:27] VITALS: BP 122/80
[2016-10-15] MEDS ORDERED: FentaNYL CITRATE-PF 100 MCG/2 ML VIAL IVP ONE (05:25)
[2016-10-15] MEDS ORDERED: ONDANSETRON HCL 4 MG/2 ML VIAL IVP ONE (05:25)
[2016-10-15] MEDS ORDERED: METOCLOPRAMIDE HCL 5 MG/ML 2 ML VIAL IVP ONE (05:25)
[2016-10-15] MEDS ORDERED: PROPOFOL 1% 20 ML VIAL IVP ONE (05:25)
[2016-10-15] MEDS ORDERED: MIDAZOLAM HCL 2 MG/2 ML VIAL IVP ONE (05:25)
[2016-10-15] MEDS ORDERED: LIDOCAINE HCL/PF 2% 5 ML VIAL IM ONE (05:25)
[2016-10-15] MEDS: INSULIN ASPART 100 UNITS/ML SQ PRN ×3 (06:21→21:11)
[2016-10-15 07:00] LABS: ANION GAP 5 mmol/L (8-16); CALCIUM, TOTAL 8.5 mg/dL (8.8-10.5); CARBON DIOXIDE 31 mmol/L (22-29); CHLORIDE 97 mmol/L (98-107); CREATININE 1.06 mg/dL (0.60-1.30); GLOMERULAR FILTR. RATE CALC > 60 mL/min (>60); POTASSIUM 4.3 mmol/L (3.5-5.1); SODIUM SERUM 133 mmol/L (136-145); UREA NITROGEN, BLOOD 18 mg/dL (7-18)
[2016-10-15 07:17] LABS: BASOPHILS # (AUTO) 0.09 K/uL (0.00-0.20); BASOPHILS % (AUTO) 0.6 % (0.0-2.0); EOSINOPHILS # (AUTO) 0.41 K/uL (0.00-0.70); EOSINOPHILS % (AUTO) 2.72 % (1.0-6.0); HEMATOCRIT 40.2 % (41-53); HEMOGLOBIN 13.3 g/dL (13.5-17.5); LYMPHOCYTES # (AUTO) 4.8 K/uL (1.0-4.8); LYMPHOCYTES % (AUTO) 31.9 % (22.0-44.0); MEAN CORPUSCULAR HEMOGLOBIN 27.6 pg (26.0-34.0); MEAN CORPUSCULAR VOLUME 83 fL (80-100); MONOCYTES # (AUTO) 1.6 K/uL (0.1-1.0); MONOCYTES % (AUTO) 10.3 % (2.0-9.0); NEUTROPHILS # (AUTO) 8.1 K/uL (1.8-7.7); NEUTROPHILS % (AUTO) 54.5 % (40.0-70.0); PLATELET COUNT (AUTO) 339 K/uL (150-450); RED BLOOD CELL COUNT(AUTO) 4.82 MIL/uL (4.50-5.90); RED CELL DISTRIBUTION WIDTH 16.3 % (11.5-14.5)
[2016-10-15 07:35] LABS: PROTHROMBIN TIME 10.3 SEC (9.4-11.6)
[2016-10-15 07:38] VITALS: BP 117/67
[2016-10-15] MEDS: MetFORMIN HCL 500 MG TABLET PO SCH ×2 (08:00→17:34)
[2016-10-15] MEDS: VANCOMYCIN HCL 1 GM/D5% WATER 200 ML IV SCH ×3 (08:16→23:08)
[2016-10-15] MEDS: DULoxetine HCL 60 MG CAPSULE PO SCH (08:17)
[2016-10-15] MEDS: TAMSULOSIN HCL 0.4 MG CAPSULE PO SCH (08:17)
[2016-10-15] MEDS: LISINOPRIL 5 MG TABLET PO SCH (08:18)
[2016-10-15] MEDS: HYDROCHLOROTHIAZIDE 25 MG TABLET PO SCH (08:18)
[2016-10-15] MEDS: GABAPENTIN 300 MG CAPSULE PO SCH ×3 (08:18→20:07)
[2016-10-15] MEDS: MULTIVITAMINS WITH MINERALS, THERAPEUTIC TABLET PO SCH (08:18)
[2016-10-15] MEDS: MUPIROCIN CALCIUM 2% 22 GM OINTMENT TP SCH (08:19)
[2016-10-15] MEDS ORDERED: RINGERS SOLUTION,LACTATED 1,000 ML IV ONE ×3 (11:00→12:00)
[2016-10-15 11:02] LABS: GLUCOSE COMMENT 1 Received Meds; GLUCOSE,POINT OF CARE 240 MG/DL (70-110)
[2016-10-15] MEDS ORDERED: HYDROmorphone 2 MG/ML SYRINGE IVP PRN (11:15)
[2016-10-15] MEDS ORDERED: FentaNYL CITRATE-PF 100 MCG/2 ML VIAL IVP PRN (11:15)
[2016-10-15] MEDS: BUPIVACAINE HCL/PF 0.5% 30 ML VIAL ONE ×2 (11:32→11:53)
[2016-10-15] MEDS: LIDOCAINE HCL/PF 1% 30 ML VIAL ONE ×2 (11:32→11:53)
[2016-10-15 11:43] VITALS: BP 121/83
[2016-10-15 16:00] VITALS: BP 126/75
[2016-10-15 17:53] LABS: GLUCOSE COMMENT 1 Received Meds; GLUCOSE,POINT OF CARE 268 MG/DL (70-110)
[2016-10-15 19:24] VITALS: BP 122/80
[2016-10-15] MEDS: OXYGEN THERAPY IH SCH (20:00)
[2016-10-15] MEDS: NORTRIPTYLINE HCL 25 MG CAPSULE PO SCH (20:06)
[2016-10-15] MEDS: ATORVASTATIN CALCIUM 20 MG TABLET PO SCH (20:06)
[2016-10-15] MEDS: FLUoxetine HCL 20 MG CAPSULE PO SCH (20:07)
[2016-10-15 21:08] LABS: GLUCOSE COMMENT 1 Received Meds; GLUCOSE,POINT OF CARE 196 MG/DL (70-110)
[2016-10-15] MEDS: INSULIN DETEMIR 100 UNITS/ML SQ SCH (21:11)
[2016-10-15] MEDS: ALPRAZolam 0.5 MG TABLET PO PRN (23:08)
[2016-10-15 23:15] VITALS: BP 130/71
[2016-10-16] MEDS: HYDROmorphone 2 MG/ML SYRINGE IVP PRN ×7 (02:13→21:01)
[2016-10-16 04:17] VITALS: BP 119/69
[2016-10-16] MEDS: INSULIN ASPART 100 UNITS/ML SQ PRN ×4 (05:31→20:24)
[2016-10-16 06:26] LABS: BASOPHILS % (AUTO) 0.7 % (0.0-2.0); EOSINOPHILS % (AUTO) 2.4 % (1.0-6.0); HEMATOCRIT 40.5 % (41-53); HEMOGLOBIN 12.9 g/dL (13.5-17.5); LYMPHOCYTES # (AUTO) 5.8 K/uL (1.0-4.8); LYMPHOCYTES % (AUTO) 39.6 % (22.0-44.0); MEAN CORPUSCULAR HEMOGLOBIN 26.8 pg (26.0-34.0); MEAN CORPUSCULAR HGB CONC 31.8 G/dL (31.0-37.0); MEAN CORPUSCULAR VOLUME 84 fL (80-100); MONOCYTES # (AUTO) 1.4 K/uL (0.1-1.0); MONOCYTES % (AUTO) 9.9 % (2.0-9.0); NEUTROPHILS # (AUTO) 6.9 K/uL (1.8-7.7); NEUTROPHILS % (AUTO) 47.4 % (40.0-70.0); PLATELET COUNT (AUTO) 343 K/uL (150-450); RED BLOOD CELL COUNT(AUTO) 4.82 MIL/uL (4.50-5.90); RED CELL DISTRIBUTION WIDTH 15.6 % (11.5-14.5); WHITE BLOOD COUNT (AUTO) 14.6 K/uL (4.5-11.0)
[2016-10-16 07:04] LABS: ANION GAP 6 mmol/L (8-16); CALCIUM, TOTAL 8.7 mg/dL (8.8-10.5); CARBON DIOXIDE 32 mmol/L (22-29); CHLORIDE 97 mmol/L (98-107); CREATININE 1.07 mg/dL (0.60-1.30); GLOMERULAR FILTR. RATE CALC > 60 mL/min (>60); POTASSIUM 4.2 mmol/L (3.5-5.1); SODIUM SERUM 135 mmol/L (136-145); UREA NITROGEN, BLOOD 16 mg/dL (7-18)
[2016-10-16 07:22] LABS: GLUCOSE COMMENT 1 Received Meds; GLUCOSE,POINT OF CARE 242 MG/DL (70-110)
[2016-10-16 07:35] VITALS: BP 121/74
[2016-10-16] MEDS: OXYGEN THERAPY IH SCH ×2 (08:00→20:00)
[2016-10-16] MEDS: VANCOMYCIN HCL 1 GM/D5% WATER 200 ML IV SCH ×2 (08:30→16:26)
[2016-10-16] MEDS: MetFORMIN HCL 500 MG TABLET PO SCH ×2 (08:30→17:49)
[2016-10-16] MEDS: HYDROCHLOROTHIAZIDE 25 MG TABLET PO SCH (08:31)
[2016-10-16] MEDS: MULTIVITAMINS WITH MINERALS, THERAPEUTIC TABLET PO SCH (08:31)
[2016-10-16] MEDS: GABAPENTIN 300 MG CAPSULE PO SCH ×3 (08:32→20:21)
[2016-10-16] MEDS: DULoxetine HCL 60 MG CAPSULE PO SCH (08:32)
[2016-10-16] MEDS: LISINOPRIL 5 MG TABLET PO SCH (08:33)
[2016-10-16] MEDS: TAMSULOSIN HCL 0.4 MG CAPSULE PO SCH (08:33)
[2016-10-16] MEDS: MUPIROCIN CALCIUM 2% 22 GM OINTMENT TP SCH (08:33)
[2016-10-16 11:46] VITALS: BP 116/82
[2016-10-16 13:17] LABS: GLUCOSE,POINT OF CARE 240 MG/DL (70-110)
[2016-10-16 16:04] VITALS: BP 109/78
[2016-10-16] MEDS: NORTRIPTYLINE HCL 25 MG CAPSULE PO SCH (20:21)
[2016-10-16] MEDS: FLUoxetine HCL 20 MG CAPSULE PO SCH (20:21)
[2016-10-16] MEDS: ATORVASTATIN CALCIUM 20 MG TABLET PO SCH (20:21)
[2016-10-16] MEDS: INSULIN DETEMIR 100 UNITS/ML SQ SCH (20:24)
[2016-10-16 20:30] VITALS: BP 102/70
[2016-10-17] VITALS (7 sets, daily range): BP systolic 101–139; BP diastolic 64–81
[2016-10-17] MEDS: HYDROmorphone 2 MG/ML SYRINGE IVP PRN ×8 (00:12→23:33)
[2016-10-17] MEDS: ALPRAZolam 0.5 MG TABLET PO PRN ×2 (00:12→23:27)
[2016-10-17] MEDS: VANCOMYCIN HCL 1 GM/D5% WATER 200 ML IV SCH ×4 (00:13→23:28)
[2016-10-17] MEDS: INSULIN ASPART 100 UNITS/ML SQ PRN ×4 (05:13→20:30)
[2016-10-17 05:33] LABS: GLUCOSE COMMENT 1 Received Meds; GLUCOSE,POINT OF CARE 182 MG/DL (70-110)
[2016-10-17 05:37] LABS: GLUCOSE COMMENT 1 Received Meds; GLUCOSE,POINT OF CARE 199 MG/DL (70-110)
[2016-10-17 07:01] LABS: ANION GAP 8 mmol/L (8-16); CALCIUM, TOTAL 8.8 mg/dL (8.8-10.5); CARBON DIOXIDE 30 mmol/L (22-29); CHLORIDE 98 mmol/L (98-107); CREATININE 1.04 mg/dL (0.60-1.30); GLOMERULAR FILTR. RATE CALC > 60 mL/min (>60); SODIUM SERUM 136 mmol/L (136-145); UREA NITROGEN, BLOOD 15 mg/dL (7-18)
[2016-10-17 07:42] LABS: GLUCOSE,POINT OF CARE 169 MG/DL (70-110)
[2016-10-17] MEDS: GABAPENTIN 300 MG CAPSULE PO SCH ×3 (07:56→20:14)
[2016-10-17] MEDS: MULTIVITAMINS WITH MINERALS, THERAPEUTIC TABLET PO SCH (07:56)
[2016-10-17] MEDS: DULoxetine HCL 60 MG CAPSULE PO SCH (07:56)
[2016-10-17] MEDS: TAMSULOSIN HCL 0.4 MG CAPSULE PO SCH (07:57)
[2016-10-17] MEDS: LISINOPRIL 5 MG TABLET PO SCH (07:57)
[2016-10-17] MEDS: MetFORMIN HCL 500 MG TABLET PO SCH ×2 (07:57→17:16)
[2016-10-17] MEDS: HYDROCHLOROTHIAZIDE 25 MG TABLET PO SCH (07:57)
[2016-10-17] MEDS: OXYGEN THERAPY IH SCH (08:00)
[2016-10-17] MEDS: MUPIROCIN CALCIUM 2% 22 GM OINTMENT TP SCH (08:05)
[2016-10-17 11:42] LABS: GLUCOSE,POINT OF CARE 231 MG/DL (70-110)
[2016-10-17 18:12] LABS: GLUCOSE COMMENT 1 Received Meds; GLUCOSE,POINT OF CARE 198 MG/DL (70-110)
[2016-10-17] MEDS: FLUoxetine HCL 20 MG CAPSULE PO SCH (20:14)
[2016-10-17] MEDS: ATORVASTATIN CALCIUM 20 MG TABLET PO SCH (20:14)
[2016-10-17] MEDS: NORTRIPTYLINE HCL 25 MG CAPSULE PO SCH (20:15)
[2016-10-17] MEDS: INSULIN DETEMIR 100 UNITS/ML SQ SCH (20:31)
[2016-10-18] MEDS: HYDROmorphone 2 MG/ML SYRINGE IVP PRN ×7 (02:40→23:06)
[2016-10-18 05:20] VITALS: BP 103/64
[2016-10-18] MEDS: INSULIN ASPART 100 UNITS/ML SQ PRN ×4 (05:54→19:53)
[2016-10-18] MEDS: MULTIVITAMINS WITH MINERALS, THERAPEUTIC TABLET PO SCH (07:50)
[2016-10-18] MEDS: TAMSULOSIN HCL 0.4 MG CAPSULE PO SCH (07:50)
[2016-10-18] MEDS: DULoxetine HCL 60 MG CAPSULE PO SCH (07:50)
[2016-10-18] MEDS: VANCOMYCIN HCL 1 GM/D5% WATER 200 ML IV SCH ×3 (07:51→23:01)
[2016-10-18] MEDS: HYDROCHLOROTHIAZIDE 25 MG TABLET PO SCH (07:51)
[2016-10-18] MEDS: LISINOPRIL 5 MG TABLET PO SCH (07:51)
[2016-10-18] MEDS: GABAPENTIN 300 MG CAPSULE PO SCH ×3 (07:51→19:57)
[2016-10-18] MEDS: MUPIROCIN CALCIUM 2% 22 GM OINTMENT TP SCH ×2 (07:52→07:59)
[2016-10-18] MEDS: MetFORMIN HCL 500 MG TABLET PO SCH ×2 (07:52→18:17)
[2016-10-18 08:00] VITALS: BP 131/89
[2016-10-18] MEDS: OXYGEN THERAPY IH SCH (08:00)
[2016-10-18 08:50] LABS: BASOPHILS # (AUTO) 0.05 K/uL (0.00-0.20); BASOPHILS % (AUTO) 0.4 % (0.0-2.0); EOSINOPHILS # (AUTO) 0.39 K/uL (0.00-0.70); EOSINOPHILS % (AUTO) 3.23 % (1.0-6.0); HEMATOCRIT 41.2 % (41-53); HEMOGLOBIN 13.3 g/dL (13.5-17.5); LYMPHOCYTES # (AUTO) 4.3 K/uL (1.0-4.8); LYMPHOCYTES % (AUTO) 35.6 % (22.0-44.0); MEAN CORPUSCULAR HGB CONC 32.3 G/dL (31.0-37.0); MEAN CORPUSCULAR VOLUME 84 fL (80-100); MONOCYTES # (AUTO) 1.2 K/uL (0.1-1.0); MONOCYTES % (AUTO) 9.8 % (2.0-9.0); NEUTROPHILS # (AUTO) 6.2 K/uL (1.8-7.7); NEUTROPHILS % (AUTO) 50.9 % (40.0-70.0); PLATELET COUNT (AUTO) 361 K/uL (150-450); RED BLOOD CELL COUNT(AUTO) 4.93 MIL/uL (4.50-5.90); RED CELL DISTRIBUTION WIDTH 15.4 % (11.5-14.5); WHITE BLOOD COUNT (AUTO) 12.2 K/uL (4.5-11.0)
[2016-10-18 09:10] LABS: ANION GAP 5 mmol/L (8-16); CARBON DIOXIDE 32 mmol/L (22-29); CHLORIDE 99 mmol/L (98-107); CREATININE 1.04 mg/dL (0.60-1.30); GLOMERULAR FILTR. RATE CALC > 60 mL/min (>60); POTASSIUM 4.2 mmol/L (3.5-5.1); SODIUM SERUM 136 mmol/L (136-145); UREA NITROGEN, BLOOD 16 mg/dL (7-18)
[2016-10-18 11:10] VITALS: BP 109/75
[2016-10-18 15:00] VITALS: BP 121/73
[2016-10-18 19:27] VITALS: BP 120/67
[2016-10-18] MEDS: INSULIN DETEMIR 100 UNITS/ML SQ SCH (19:54)
[2016-10-18] MEDS: ATORVASTATIN CALCIUM 20 MG TABLET PO SCH (19:57)
[2016-10-18] MEDS: FLUoxetine HCL 20 MG CAPSULE PO SCH (19:57)
[2016-10-18] MEDS: NORTRIPTYLINE HCL 25 MG CAPSULE PO SCH (19:57)
[2016-10-18 20:27] LABS: GLUCOSE COMMENT 1 Received Meds; GLUCOSE,POINT OF CARE 165 MG/DL (70-110)
[2016-10-18 20:32] LABS: GLUCOSE COMMENT 1 Received Meds; GLUCOSE,POINT OF CARE 295 MG/DL (70-110)
[2016-10-18] MEDS: ALPRAZolam 0.5 MG TABLET PO PRN (23:01)
[2016-10-18 23:12] VITALS: BP 121/78
[2016-10-19] MEDS: HYDROmorphone 2 MG/ML SYRINGE IVP PRN ×7 (02:07→21:17)
[2016-10-19 04:31] VITALS: BP 127/76
[2016-10-19] MEDS: INSULIN ASPART 100 UNITS/ML SQ PRN ×3 (05:32→20:10)
[2016-10-19 06:41] LABS: GLUCOSE COMMENT 1 Received Meds; GLUCOSE,POINT OF CARE 199 MG/DL (70-110)
[2016-10-19 07:09] VITALS: BP 121/63
[2016-10-19] MEDS: OXYGEN THERAPY IH SCH (08:00)
[2016-10-19 08:01] LABS: ANION GAP 8 mmol/L (8-16); CALCIUM, TOTAL 8.9 mg/dL (8.8-10.5); CARBON DIOXIDE 30 mmol/L (22-29); CHLORIDE 99 mmol/L (98-107); CREATININE 1.02 mg/dL (0.60-1.30); GLOMERULAR FILTR. RATE CALC > 60 mL/min (>60); POTASSIUM 4.2 mmol/L (3.5-5.1); SODIUM SERUM 137 mmol/L (136-145); UREA NITROGEN, BLOOD 16 mg/dL (7-18)
[2016-10-19] MEDS: DULoxetine HCL 60 MG CAPSULE PO SCH (08:23)
[2016-10-19] MEDS: GABAPENTIN 300 MG CAPSULE PO SCH ×3 (08:23→20:09)
[2016-10-19] MEDS: VANCOMYCIN HCL 1 GM/D5% WATER 200 ML IV SCH ×2 (08:23→15:17)
[2016-10-19] MEDS: HYDROCHLOROTHIAZIDE 25 MG TABLET PO SCH (08:24)
[2016-10-19] MEDS: MetFORMIN HCL 500 MG TABLET PO SCH ×2 (08:24→18:11)
[2016-10-19] MEDS: TAMSULOSIN HCL 0.4 MG CAPSULE PO SCH (08:24)
[2016-10-19] MEDS: MULTIVITAMINS WITH MINERALS, THERAPEUTIC TABLET PO SCH (08:26)
[2016-10-19] MEDS: LISINOPRIL 5 MG TABLET PO SCH (08:27)
[2016-10-19] MEDS: MUPIROCIN CALCIUM 2% 22 GM OINTMENT TP SCH (08:33)
[2016-10-19 11:26] VITALS: BP 121/76
[2016-10-19 15:41] VITALS: BP 112/62
[2016-10-19 16:42] LABS: GLUCOSE COMMENT 1 Received Meds; GLUCOSE,POINT OF CARE 249 MG/DL (70-110)
[2016-10-19] MEDS: NORTRIPTYLINE HCL 25 MG CAPSULE PO SCH (20:09)
[2016-10-19] MEDS: ATORVASTATIN CALCIUM 20 MG TABLET PO SCH (20:09)
[2016-10-19] MEDS: FLUoxetine HCL 20 MG CAPSULE PO SCH (20:09)
[2016-10-19] MEDS: INSULIN DETEMIR 100 UNITS/ML SQ SCH (20:11)
[2016-10-19 20:14] VITALS: BP 90/70
[2016-10-19 20:32] LABS: GLUCOSE COMMENT 1 Received Meds; GLUCOSE,POINT OF CARE 184 MG/DL (70-110)
[2016-10-19 23:50] VITALS: BP 113/75
[2016-10-20] MEDS: HYDROmorphone 2 MG/ML SYRINGE IVP PRN ×7 (00:22→21:30)
[2016-10-20] MEDS: ALPRAZolam 0.5 MG TABLET PO PRN (00:23)
[2016-10-20] MEDS: VANCOMYCIN HCL 1 GM/D5% WATER 200 ML IV SCH ×3 (00:24→16:29)
[2016-10-20 05:32] VITALS: BP 117/75
[2016-10-20] MEDS: INSULIN ASPART 100 UNITS/ML SQ PRN ×3 (06:27→19:55)
[2016-10-20 06:33] LABS: ANION GAP 8 mmol/L (8-16); CARBON DIOXIDE 30 mmol/L (22-29); CHLORIDE 98 mmol/L (98-107); CREATININE 1.02 mg/dL (0.60-1.30); GLOMERULAR FILTR. RATE CALC > 60 mL/min (>60); POTASSIUM 4.2 mmol/L (3.5-5.1); SODIUM SERUM 136 mmol/L (136-145); UREA NITROGEN, BLOOD 18 mg/dL (7-18)
[2016-10-20 06:52] LABS: GLUCOSE COMMENT 1 Received Meds; GLUCOSE,POINT OF CARE 201 MG/DL (70-110)
[2016-10-20 07:49] VITALS: BP 113/76
[2016-10-20] MEDS: OXYGEN THERAPY IH SCH (08:00)
[2016-10-20] MEDS: MULTIVITAMINS WITH MINERALS, THERAPEUTIC TABLET PO SCH (08:23)
[2016-10-20] MEDS: TAMSULOSIN HCL 0.4 MG CAPSULE PO SCH (08:23)
[2016-10-20] MEDS: LISINOPRIL 5 MG TABLET PO SCH (08:23)
[2016-10-20] MEDS: GABAPENTIN 300 MG CAPSULE PO SCH ×3 (08:23→19:57)
[2016-10-20] MEDS: MetFORMIN HCL 500 MG TABLET PO SCH ×2 (08:24→17:49)
[2016-10-20] MEDS: HYDROCHLOROTHIAZIDE 25 MG TABLET PO SCH (08:25)
[2016-10-20] MEDS: MUPIROCIN CALCIUM 2% 22 GM OINTMENT TP SCH (08:25)
[2016-10-20] MEDS: DULoxetine HCL 60 MG CAPSULE PO SCH (08:25)
[2016-10-20 10:54] LABS: GLUCOSE,POINT OF CARE 267 MG/DL (70-110)
[2016-10-20 10:54] LABS: GLUCOSE COMMENT 1 Received Meds; GLUCOSE,POINT OF CARE 173 MG/DL (70-110)
[2016-10-20 10:59] LABS: GLUCOSE,POINT OF CARE 137 MG/DL (70-110)
[2016-10-20 11:04] LABS: GLUCOSE COMMENT 1 Received Meds; GLUCOSE,POINT OF CARE 191 MG/DL (70-110)
[2016-10-20 11:30] VITALS: BP 118/76
[2016-10-20 13:17] LABS: GLUCOSE COMMENT 1 Received Meds; GLUCOSE,POINT OF CARE 223 MG/DL (70-110)
[2016-10-20 16:00] VITALS: BP 118/67
[2016-10-20 17:37] LABS: GLUCOSE COMMENT 1 Received Meds; GLUCOSE,POINT OF CARE 158 MG/DL (70-110)
[2016-10-20 19:22] VITALS: BP 104/66
[2016-10-20] MEDS: FLUoxetine HCL 20 MG CAPSULE PO SCH (19:56)
[2016-10-20] MEDS: INSULIN DETEMIR 100 UNITS/ML SQ SCH (19:56)
[2016-10-20] MEDS: ATORVASTATIN CALCIUM 20 MG TABLET PO SCH (19:57)
[2016-10-20] MEDS: NORTRIPTYLINE HCL 25 MG CAPSULE PO SCH (19:57)
[2016-10-20 20:57] LABS: GLUCOSE COMMENT 1 Received Meds; GLUCOSE,POINT OF CARE 189 MG/DL (70-110)
[2016-10-21 00:22] VITALS: BP 111/68
[2016-10-21] MEDS: ALPRAZolam 0.5 MG TABLET PO PRN (00:27)
[2016-10-21] MEDS: VANCOMYCIN HCL 1 GM/D5% WATER 200 ML IV SCH ×3 (00:27→16:09)
[2016-10-21] MEDS: HYDROmorphone 2 MG/ML SYRINGE IVP PRN ×4 (00:32→09:43)
[2016-10-21] MEDS: INSULIN ASPART 100 UNITS/ML SQ PRN ×3 (06:01→18:00)
[2016-10-21 07:33] VITALS: BP 109/62
[2016-10-21] MEDS: OXYGEN THERAPY IH SCH (08:00)
[2016-10-21] MEDS: LISINOPRIL 5 MG TABLET PO SCH (08:23)
[2016-10-21] MEDS: DULoxetine HCL 60 MG CAPSULE PO SCH (08:23)
[2016-10-21] MEDS: GABAPENTIN 300 MG CAPSULE PO SCH ×3 (08:23→20:56)
[2016-10-21] MEDS: TAMSULOSIN HCL 0.4 MG CAPSULE PO SCH (08:24)
[2016-10-21] MEDS: HYDROCHLOROTHIAZIDE 25 MG TABLET PO SCH (08:24)
[2016-10-21] MEDS: MULTIVITAMINS WITH MINERALS, THERAPEUTIC TABLET PO SCH (08:24)
[2016-10-21] MEDS: MetFORMIN HCL 500 MG TABLET PO SCH ×2 (08:24→17:53)
[2016-10-21] MEDS: MUPIROCIN CALCIUM 2% 22 GM OINTMENT TP SCH (08:25)
[2016-10-21 08:50] LABS: ANION GAP 6 mmol/L (8-16); CALCIUM, TOTAL 9.1 mg/dL (8.8-10.5); CARBON DIOXIDE 32 mmol/L (22-29); CHLORIDE 98 mmol/L (98-107); CREATININE 1.02 mg/dL (0.60-1.30); GLOMERULAR FILTR. RATE CALC > 60 mL/min (>60); POTASSIUM 4.3 mmol/L (3.5-5.1); SODIUM SERUM 136 mmol/L (136-145); UREA NITROGEN, BLOOD 17 mg/dL (7-18)
[2016-10-21 11:23] LABS: GLUCOSE COMMENT 1 Received Meds; GLUCOSE,POINT OF CARE 203 MG/DL (70-110)
[2016-10-21 11:23] LABS: GLUCOSE,POINT OF CARE 252 MG/DL (70-110)
[2016-10-21 11:44] VITALS: BP 114/81
[2016-10-21] MEDS: HYDROCODONE/ACETAMINOPHEN 10-325 MG TABLET PO PRN ×3 (12:44→20:57)
[2016-10-21 15:40] VITALS: BP 127/71
[2016-10-21 17:02] LABS: GLUCOSE COMMENT 1 Received Meds; GLUCOSE,POINT OF CARE 175 MG/DL (70-110)
[2016-10-21 20:04] VITALS: BP 113/76
[2016-10-21] MEDS: ATORVASTATIN CALCIUM 20 MG TABLET PO SCH (20:56)
[2016-10-21] MEDS: FLUoxetine HCL 20 MG CAPSULE PO SCH (20:57)
[2016-10-21] MEDS: NORTRIPTYLINE HCL 25 MG CAPSULE PO SCH (20:57)
[2016-10-21] MEDS: INSULIN DETEMIR 100 UNITS/ML SQ SCH (21:04)
[2016-10-21 23:35] VITALS: BP 131/77
[2016-10-22] MEDS: ALPRAZolam 0.5 MG TABLET PO PRN (00:03)
[2016-10-22] MEDS: HYDROCODONE/ACETAMINOPHEN 10-325 MG TABLET PO PRN ×5 (00:57→18:51)
[2016-10-22 04:38] VITALS: BP 120/62
[2016-10-22 05:02] LABS: GLUCOSE COMMENT 1 Received Meds; GLUCOSE,POINT OF CARE 162 MG/DL (70-110)
[2016-10-22 05:02] LABS: GLUCOSE COMMENT 1 Received Meds; GLUCOSE,POINT OF CARE 179 MG/DL (70-110)
[2016-10-22 06:49] LABS: ANION GAP 8 mmol/L (8-16); CARBON DIOXIDE 30 mmol/L (22-29); CHLORIDE 99 mmol/L (98-107); CREATININE 1.06 mg/dL (0.60-1.30); GLOMERULAR FILTR. RATE CALC > 60 mL/min (>60); POTASSIUM 3.9 mmol/L (3.5-5.1); SODIUM SERUM 137 mmol/L (136-145); UREA NITROGEN, BLOOD 22 mg/dL (7-18)
[2016-10-22 08:00] VITALS: BP 110/59
[2016-10-22] MEDS: GABAPENTIN 300 MG CAPSULE PO SCH ×2 (08:06→16:18)
[2016-10-22] MEDS: HYDROCHLOROTHIAZIDE 25 MG TABLET PO SCH (08:07)
[2016-10-22] MEDS: MULTIVITAMINS WITH MINERALS, THERAPEUTIC TABLET PO SCH (08:07)
[2016-10-22] MEDS: TAMSULOSIN HCL 0.4 MG CAPSULE PO SCH (08:07)
[2016-10-22] MEDS: LISINOPRIL 5 MG TABLET PO SCH (08:07)
[2016-10-22] MEDS: MetFORMIN HCL 500 MG TABLET PO SCH ×2 (08:07→17:48)
[2016-10-22] MEDS: DULoxetine HCL 60 MG CAPSULE PO SCH (08:08)
[2016-10-22] MEDS: VANCOMYCIN HCL 1 GM/D5% WATER 200 ML IV SCH ×3 (08:09→16:21)
[2016-10-22] MEDS: MUPIROCIN CALCIUM 2% 22 GM OINTMENT TP SCH (08:10)
[2016-10-22] MEDS ORDERED: SODIUM CHLORIDE 0.9% 500 ML IV ONE (08:21)
[2016-10-22 11:34] VITALS: BP 98/57
[2016-10-22] MEDS: INSULIN ASPART 100 UNITS/ML SQ PRN (14:42)
[2016-10-22 14:47] LABS: GLUCOSE COMMENT 1 Received Meds; GLUCOSE,POINT OF CARE 126 MG/DL (70-110)
[2016-10-22 15:57] VITALS: BP 131/69
[2016-10-22] MEDS ORDERED: VANC1IV IV (17:09)
== END 2016-10-22 19:32 | DRG 710 ==
LOC: EMS 12:26 → 6N 16:02
PROVIDERS: ADMIT Family Medicine; ATTEND Family Medicine
PROC: 0Y6W0Z0 Detachment at Left 4th Toe, Complete, Open Approach (ICD-10-PCS; principal; 2016-10-15 11:55)
PROC: 02HV33Z Insertion of Infusion Device into Superior Vena Cava, Percutaneous Approach (ICD-10-PCS; 2016-10-22)
PROC: B548ZZA Ultrasonography of Superior Vena Cava, Guidance (ICD-10-PCS; 2016-10-22)
DX: A41.9 Sepsis, unspecified organism (principal); E11.40 Type 2 diabetes mellitus with diabetic neuropathy, unspecified; I11.9 Hypertensive heart disease without heart failure; E11.621 Type 2 diabetes mellitus with foot ulcer; E11.65 Type 2 diabetes mellitus with hyperglycemia; E11.51 Type 2 diabetes mellitus with diabetic peripheral angiopathy without gangrene; K70.40 Alcoholic hepatic failure without coma; L03.116 Cellulitis of left lower limb; L97.529 Non-pressure chronic ulcer of other part of left foot with unspecified severity; F17.210 Nicotine dependence, cigarettes, uncomplicated; F10.20 Alcohol dependence, uncomplicated; I25.10 Atherosclerotic heart disease of native coronary artery without angina pectoris; E78.5 Hyperlipidemia, unspecified; B95.8 Unspecified staphylococcus as the cause of diseases classified elsewhere; E11.69 Type 2 diabetes mellitus with other specified complication; M86.9 Osteomyelitis, unspecified; K70.30 Alcoholic cirrhosis of liver without ascites; Z89.511 Acquired absence of right leg below knee; Z91.81 History of falling; Z86.14 Personal history of Methicillin resistant Staphylococcus aureus infection; Z79.899 Other long term (current) drug therapy; Z79.84 Long term (current) use of oral hypoglycemic drugs; Z79.4 Long term (current) use of insulin; Z91.19 Patient's noncompliance with other medical treatment and regimen
CPT/HCPCS: 36245; 36569; 73720; 76937; 82962; 83036; 83735; 85651; 86140; 87015; 87070; 87101; 87205; 88305; 88311; 96361; 96365; 96375; 99285; A9585; J1170; J1815; J2250; J2405; J2704; J2765; J3010; J3370; J3490; J7030; J7040; J7050; J7060; J7120

== ENCOUNTER 2017-07-10 12:22 | Emergency (ER) | payer MEDICAID ==
[~2017-07-10] VITALS: Ht 195.6 cm; Wt 136.4 kg
[~2017-07-10 12:22] MED LIST changes: -FLUO-191 PO; -HYDR25TA PO; +SULF1TAB42 PO
[2017-07-10] MEDS ORDERED: INSU100I26 SQ ×2 (12:32)
[2017-07-10 12:33] LABS: GLUCOSE,POINT OF CARE 314 MG/DL (70-110)
[2017-07-10] MEDS ORDERED: HYDROCODONE/ACETAMINOPHEN 10-325 MG TABLET PO ONE (15:00)
[2017-07-10] MEDS ORDERED: BACITRACIN 0.9 GM PACKET OINTMENT TP ONE (15:00)
[2017-07-10 15:08] LABS: BASOPHILS % (AUTO) 0.9 % (0.0-2.0); EOSINOPHILS % (AUTO) 3.5 % (1.0-6.0); HEMATOCRIT 50.1 % (41-53); HEMOGLOBIN 16.9 g/dL (13.5-17.5); LYMPHOCYTES # (AUTO) 4.4 K/uL (1.0-4.8); MEAN CORPUSCULAR HEMOGLOBIN 27.4 pg (26.0-34.0); MEAN CORPUSCULAR HGB CONC 33.8 G/dL (31.0-37.0); MEAN CORPUSCULAR VOLUME 81 fL (80-100); MONOCYTES # (AUTO) 1.7 K/uL (0.1-1.0); MONOCYTES % (AUTO) 10.4 % (2.0-9.0); NEUTROPHILS # (AUTO) 9.5 K/uL (1.8-7.7); NEUTROPHILS % (AUTO) 58.2 % (40.0-70.0); PLATELET COUNT (AUTO) 400 K/uL (150-450); RED BLOOD CELL COUNT(AUTO) 6.16 MIL/uL (4.50-5.90); RED CELL DISTRIBUTION WIDTH 13.8 % (11.5-14.5)
[2017-07-10 15:14] LABS: ANION GAP 7 mmol/L (8-16); CALCIUM, TOTAL 9.3 mg/dL (8.8-10.5); CARBON DIOXIDE 29 mmol/L (22-29); CHLORIDE 94 mmol/L (98-107); CREATININE 1.16 mg/dL (0.60-1.30); GLOMERULAR FILTR. RATE CALC > 60 mL/min (>60); GLUCOSE,RANDOM 303 mg/dL (70-110); POTASSIUM 4.3 mmol/L (3.5-5.1); SODIUM SERUM 130 mmol/L (136-145); UREA NITROGEN, BLOOD 15 mg/dL (7-18)
[2017-07-10] MEDS ORDERED: CEPHALEXIN MONOHYDRATE 500 MG CAPSULE PO ONE (15:15)
[2017-07-10 16:00] VITALS: BP 132/98
== END 2017-07-10 16:23 | disposition home or self-care (01) ==
LOC: EMS 12:23
DX: E11.622 Type 2 diabetes mellitus with other skin ulcer (principal); L97.329 Non-pressure chronic ulcer of left ankle with unspecified severity; I10 Essential (primary) hypertension; F17.210 Nicotine dependence, cigarettes, uncomplicated; I25.10 Atherosclerotic heart disease of native coronary artery without angina pectoris; Z79.4 Long term (current) use of insulin; Z89.511 Acquired absence of right leg below knee; Z91.14 Patient's other noncompliance with medication regimen
CPT/HCPCS: 82962; 99284; 99406

== ENCOUNTER 2017-10-18 09:29 | Inpatient (IN) | payer MEDICAID ==
[~2017-10-18] VITALS: Ht 195.6 cm; Wt 149.0 kg
[~2017-10-18 09:29] MED LIST changes: +INSU100I26 SQ; +METF-444 PO; -METF500T4 PO
[2017-10-18] MEDS ORDERED: LORA1TAB3 PO (09:46)
[2017-10-18 09:47] LABS: GLUCOSE,POINT OF CARE 456 MG/DL (70-110)
[2017-10-18] MEDS ORDERED: INSULIN HUMAN NPH-REGULAR 70/30 100 UNITS/ML SQ ONE (10:30)
[2017-10-18] MEDS ORDERED: ONDANSETRON HCL 4 MG/2 ML VIAL IVP ONE (10:30)
[2017-10-18] MEDS ORDERED: KETOROLAC TROMETHAMINE 30 MG/ML VIAL IVP ONE (10:30)
[2017-10-18] MEDS ORDERED: SODIUM CHLORIDE 0.9% 1,000 ML IV ONE (10:30)
[2017-10-18] MEDS ORDERED: MORPHINE SULFATE 4 MG/ML SYRINGE IVP ONE ×2 (10:30→12:15)
[2017-10-18 10:49] LABS: CALCIUM, TOTAL 8.3 mg/dL (8.8-10.5); CREATININE 1.49 mg/dL (0.60-1.30); POTASSIUM 4.2 mmol/L (3.5-5.1)
[2017-10-18 10:51] LABS: ALBUMIN 3.5 g/dL (3.4-5.0); BILIRUBIN,TOTAL 0.6 mg/dL (0.1-1.0); TOTAL PROTEIN, SERUM 7.9 g/dL (6.4-8.2)
[2017-10-18 11:02] LABS: BASOPHILS % (AUTO) 0.6 % (0.0-2.0); EOSINOPHILS % (AUTO) 0.3 % (1.0-6.0); HEMOGLOBIN 15.2 g/dL (13.5-17.5); LYMPHOCYTES # (AUTO) 3.9 K/uL (1.0-4.8); LYMPHOCYTES % (AUTO) 15.9 % (22.0-44.0); MEAN CORPUSCULAR HEMOGLOBIN 27.7 pg (26.0-34.0); MEAN CORPUSCULAR HGB CONC 33.9 G/dL (31.0-37.0); MEAN CORPUSCULAR VOLUME 82 fL (80-100); MONOCYTES # (AUTO) 2.9 K/uL (0.1-1.0); NEUTROPHILS # (AUTO) 17.3 K/uL (1.8-7.7); NEUTROPHILS % (AUTO) 71.2 % (40.0-70.0); PLATELET COUNT (AUTO) 382 K/uL (150-450); RED BLOOD CELL COUNT(AUTO) 5.49 MIL/uL (4.50-5.90); RED CELL DISTRIBUTION WIDTH 16.3 % (11.5-14.5)
[2017-10-18] MEDS ORDERED: VANCOMYCIN HCL 1 GM/D5% WATER 200 ML IV ONE ×2 (11:30→15:15)
[2017-10-18 11:33] LABS: APPEARANCE,URINE CLEAR (CLEAR); BILIRUBIN,URINE NEGATIVE (NEGATIVE); GLUCOSE, URINE (UA) >=1000 mg/dL (NEGATIVE); OCCULT BLOOD,URINE NEGATIVE (NEGATIVE); PH,URINE 5.5 (5.0-8.0); PROTEIN,URINE NEGATIVE (NEGATIVE)
[2017-10-18 11:34] LABS: KETONES,URINE NEGATIVE (NEGATIVE); LEUKOCYTE ESTERASE ,URINE NEGATIVE (NEGATIVE); NITRATE,URINE NEGATIVE (NEGATIVE); UROBILINOGEN,URINE 0.2 mg/dL (<=1.0)
[2017-10-18 11:38] LABS: BACTERIA,URINE None Seen /HPF (None Seen); RBC,URINE None Seen /HPF (0-2); SQUAMOUS EPITHELIAL CELL,UR Few /LPF (None Seen); WBC,URINE None Seen /HPF (0-5)
[2017-10-18 12:03] LABS: GLUCOSE,POINT OF CARE 334 MG/DL (70-110)
[2017-10-18] MEDS ORDERED: ACETAMINOPHEN 500 MG TABLET PO ONE (12:45)
[2017-10-18 13:52] VITALS: BP 145/87
[2017-10-18] MEDS ORDERED: GLUCAGON,HUMAN RECOMBINANT 1 MG VIAL IM PRN (14:45)
[2017-10-18 15:00] VITALS: BP 145/81
[2017-10-18] MEDS: TAMSULOSIN HCL 0.4 MG CAPSULE PO SCH (15:50)
[2017-10-18] MEDS: PIPERACILLIN/TAZO 3.375 GM/D5W 50 ML IV SCH ×2 (15:50→20:28)
[2017-10-18] MEDS: HYDROCODONE/ACETAMINOPHEN 10-325 MG TABLET PO PRN (16:01)
[2017-10-18] MEDS: GABAPENTIN 300 MG CAPSULE PO SCH ×2 (16:07→20:29)
[2017-10-18] MEDS ORDERED: DEXTROSE 50%-WATER 25 GM/50 ML SYG IVP PRN (16:30)
[2017-10-18] MEDS: MetFORMIN HCL 500 MG TABLET PO SCH (17:26)
[2017-10-18] MEDS: MORPHINE SULFATE 4 MG/ML SYRINGE IVP PRN ×2 (17:27→21:42)
[2017-10-18] MEDS: INSULIN LISPRO 100 UNITS/ML SQ PRN ×2 (17:28→20:28)
[2017-10-18 18:58] LABS: GLUCOMETER DEV NAME(LOC) 6N 2D; GLUCOSE,POINT OF CARE 252 MG/DL (70-110)
[2017-10-18] MEDS: ACETAMINOPHEN 325 MG TABLET PO PRN (18:59)
[2017-10-18 19:46] VITALS: BP 151/78
[2017-10-18] MEDS ORDERED: SODIUM CHLORIDE 0.9% 250 ML IV ONE (20:07)
[2017-10-18] MEDS: NORTRIPTYLINE HCL 25 MG CAPSULE PO SCH (20:29)
[2017-10-18] MEDS: ATORVASTATIN CALCIUM 20 MG TABLET PO SCH (20:29)
[2017-10-18] MEDS: VANCOMYCIN HCL 1 GM/D5% WATER 200 ML IV SCH (23:25)
[2017-10-18 23:57] VITALS: BP 144/72
[2017-10-19] MEDS: HYDROCODONE/ACETAMINOPHEN 10-325 MG TABLET PO PRN ×2 (01:24→19:10)
[2017-10-19] MEDS: ACETAMINOPHEN 325 MG TABLET PO PRN ×3 (02:30→19:47)
[2017-10-19 04:01] VITALS: BP 135/75
[2017-10-19] MEDS: MORPHINE SULFATE 4 MG/ML SYRINGE IVP PRN ×5 (04:03→22:07)
[2017-10-19] MEDS: PIPERACILLIN/TAZO 3.375 GM/D5W 50 ML IV SCH ×5 (04:03→20:31)
[2017-10-19 06:11] LABS: BASOPHILS % (AUTO) 0.6 % (0.0-2.0); EOSINOPHILS % (AUTO) 0 % (1.0-6.0); HEMOGLOBIN 13.8 g/dL (13.5-17.5); LYMPHOCYTES # (AUTO) 3.3 K/uL (1.0-4.8); LYMPHOCYTES % (AUTO) 11.6 % (22.0-44.0); MEAN CORPUSCULAR HEMOGLOBIN 27.7 pg (26.0-34.0); MEAN CORPUSCULAR HGB CONC 33.5 G/dL (31.0-37.0); MEAN CORPUSCULAR VOLUME 83 fL (80-100); MONOCYTES # (AUTO) 1.9 K/uL (0.1-1.0); MONOCYTES % (AUTO) 6.8 % (2.0-9.0); PLATELET COUNT (AUTO) 313 K/uL (150-450); RED BLOOD CELL COUNT(AUTO) 4.97 MIL/uL (4.50-5.90); RED CELL DISTRIBUTION WIDTH 16.1 % (11.5-14.5)
[2017-10-19 06:18] LABS: CALCIUM, TOTAL 8.4 mg/dL (8.8-10.5); CREATININE 1.46 mg/dL (0.60-1.30); POTASSIUM 3.9 mmol/L (3.5-5.1)
[2017-10-19] MEDS: VANCOMYCIN HCL 1 GM/D5% WATER 200 ML IV SCH ×3 (06:28→23:07)
[2017-10-19] MEDS: INSULIN LISPRO 100 UNITS/ML SQ PRN ×4 (06:28→20:37)
[2017-10-19 07:25] LABS: HEMOGLOBIN A1C 8.9 % (4.5-6.2)
[2017-10-19 07:35] VITALS: BP 143/84
[2017-10-19 07:38] LABS: GLUCOMETER DEV NAME(LOC) 6N 2D; GLUCOSE,POINT OF CARE 266 MG/DL (70-110)
[2017-10-19 07:38] LABS: GLUCOMETER DEV NAME(LOC) 6N 1E; GLUCOSE,POINT OF CARE 273 MG/DL (70-110)
[2017-10-19] MEDS: MetFORMIN HCL 500 MG TABLET PO SCH ×2 (08:06→17:41)
[2017-10-19] MEDS: GABAPENTIN 300 MG CAPSULE PO SCH ×3 (08:07→19:47)
[2017-10-19] MEDS: TAMSULOSIN HCL 0.4 MG CAPSULE PO SCH (08:07)
[2017-10-19] MEDS: LORazepam 1 MG TABLET PO PRN (08:17)
[2017-10-19] MEDS ORDERED: GADOBUTROL 1 MMOL/ML 10 ML VIAL IVP ONE (08:33)
[2017-10-19 11:58] LABS: ERYTHROCYTE SEDIMENTATION RATE 26 MM/HR (0-15)
[2017-10-19 12:00] VITALS: BP 145/75
[2017-10-19 15:28] VITALS: BP 140/70
[2017-10-19] MEDS: ALBUTEROL SULFATE HFA 90 MCG/PUFF 8 GM INHALER IH PRN (16:28)
[2017-10-19 19:00] VITALS: BP 156/64
[2017-10-19] MEDS: NORTRIPTYLINE HCL 25 MG CAPSULE PO SCH (19:47)
[2017-10-19] MEDS: ATORVASTATIN CALCIUM 20 MG TABLET PO SCH (19:47)
[2017-10-19 19:52] LABS: GLUCOMETER DEV NAME(LOC) 6N 2D; GLUCOSE,POINT OF CARE 291 MG/DL (70-110)
[2017-10-19 21:33] LABS: GLUCOMETER DEV NAME(LOC) 6N 1E; GLUCOSE,POINT OF CARE 298 MG/DL (70-110)
[2017-10-19 21:33] LABS: GLUCOMETER DEV NAME(LOC) 6N 1E; GLUCOSE,POINT OF CARE 291 MG/DL (70-110)
[2017-10-19 23:35] VITALS: BP 121/59
[2017-10-20] MEDS ORDERED: SODIUM CHLORIDE 0.9% 250 ML IV ONE (00:38)
[2017-10-20] MEDS: ALBUTEROL SULFATE HFA 90 MCG/PUFF 8 GM INHALER IH PRN (00:42)
[2017-10-20] MEDS: PIPERACILLIN/TAZO 3.375 GM/D5W 50 ML IV SCH ×4 (02:57→20:12)
[2017-10-20] MEDS: MORPHINE SULFATE 4 MG/ML SYRINGE IVP PRN ×6 (02:58→23:09)
[2017-10-20 04:39] VITALS: BP 129/75
[2017-10-20] MEDS: INSULIN LISPRO 100 UNITS/ML SQ PRN ×4 (05:23→21:08)
[2017-10-20 06:05] LABS: BASOPHILS % (AUTO) 0.7 % (0.0-2.0); HEMATOCRIT 38.2 % (41-53); HEMOGLOBIN 12.9 g/dL (13.5-17.5); LYMPHOCYTES # (AUTO) 3.5 K/uL (1.0-4.8); LYMPHOCYTES % (AUTO) 16.7 % (22.0-44.0); MEAN CORPUSCULAR HEMOGLOBIN 28.2 pg (26.0-34.0); MEAN CORPUSCULAR HGB CONC 33.9 G/dL (31.0-37.0); MEAN CORPUSCULAR VOLUME 83 fL (80-100); MONOCYTES # (AUTO) 2.7 K/uL (0.1-1.0); MONOCYTES % (AUTO) 12.8 % (2.0-9.0); NEUTROPHILS # (AUTO) 14.3 K/uL (1.8-7.7); NEUTROPHILS % (AUTO) 68.8 % (40.0-70.0); PLATELET COUNT (AUTO) 280 K/uL (150-450); RED BLOOD CELL COUNT(AUTO) 4.59 MIL/uL (4.50-5.90); RED CELL DISTRIBUTION WIDTH 16.4 % (11.5-14.5)
[2017-10-20 06:17] LABS: CALCIUM, TOTAL 8.3 mg/dL (8.8-10.5); CREATININE 1.34 mg/dL (0.60-1.30); MAGNESIUM 1.7 mg/dL (1.80-2.40); POTASSIUM 3.9 mmol/L (3.5-5.1); VANCOMYCIN,RANDOM 13.4 mcg/mL (25.0-50.0)
[2017-10-20] MEDS: VANCOMYCIN HCL 1 GM/D5% WATER 200 ML IV SCH (06:36)
[2017-10-20 07:33] VITALS: BP 127/75
[2017-10-20] MEDS: MetFORMIN HCL 500 MG TABLET PO SCH ×2 (07:46→18:01)
[2017-10-20] MEDS: GABAPENTIN 300 MG CAPSULE PO SCH ×3 (07:46→20:11)
[2017-10-20] MEDS: TAMSULOSIN HCL 0.4 MG CAPSULE PO SCH (07:46)
[2017-10-20] MEDS: MULTIVITAMINS WITH MINERALS, THERAPEUTIC TABLET PO SCH (07:46)
[2017-10-20] MEDS: HYDROCODONE/ACETAMINOPHEN 10-325 MG TABLET PO PRN ×2 (07:47→18:02)
[2017-10-20 11:08] VITALS: BP 135/72
[2017-10-20 12:23] LABS: GLUCOMETER DEV NAME(LOC) 6N 2D; GLUCOSE,POINT OF CARE 301 MG/DL (70-110)
[2017-10-20 15:20] VITALS: BP 131/84
[2017-10-20] MEDS: VANCOMYCIN HCL 1.25 GM in DEXTROSE 5%-WATER 250 ML IV SCH ×2 (16:20→23:08)
[2017-10-20 19:49] VITALS: BP 135/77
[2017-10-20 20:03] LABS: GLUCOMETER DEV NAME(LOC) 6N 1E; GLUCOSE,POINT OF CARE 311 MG/DL (70-110)
[2017-10-20] MEDS: ATORVASTATIN CALCIUM 20 MG TABLET PO SCH (20:11)
[2017-10-20] MEDS: ACETAMINOPHEN 325 MG TABLET PO PRN (20:11)
[2017-10-20] MEDS: NORTRIPTYLINE HCL 25 MG CAPSULE PO SCH (20:14)
[2017-10-20 20:28] LABS: GLUCOMETER DEV NAME(LOC) 6N 2D; GLUCOSE,POINT OF CARE 327 MG/DL (70-110)
[2017-10-20 22:42] LABS: GLUCOMETER DEV NAME(LOC) 6N 2D; GLUCOSE,POINT OF CARE 315 MG/DL (70-110)
[2017-10-20] MEDS: LORazepam 1 MG TABLET PO PRN (23:08)
[2017-10-20 23:45] VITALS: BP 124/73
[2017-10-21] VITALS (7 sets, daily range): BP systolic 116–143; BP diastolic 56–95
[2017-10-21] MEDS: PIPERACILLIN/TAZO 3.375 GM/D5W 50 ML IV SCH ×4 (02:40→20:13)
[2017-10-21] MEDS: MORPHINE SULFATE 4 MG/ML SYRINGE IVP PRN ×6 (03:14→23:20)
[2017-10-21] MEDS: HYDROCODONE/ACETAMINOPHEN 10-325 MG TABLET PO PRN ×2 (05:34→17:54)
[2017-10-21] MEDS: INSULIN LISPRO 100 UNITS/ML SQ PRN ×4 (05:52→20:24)
[2017-10-21] MEDS ORDERED: RINGERS SOLUTION,LACTATED 1,000 ML IV ONE (06:30)
[2017-10-21 06:31] LABS: BASOPHILS % (AUTO) 0.3 % (0.0-2.0); EOSINOPHILS % (AUTO) 1.7 % (1.0-6.0); HEMATOCRIT 36.6 % (41-53); HEMOGLOBIN 12.4 g/dL (13.5-17.5); LYMPHOCYTES # (AUTO) 3.4 K/uL (1.0-4.8); LYMPHOCYTES % (AUTO) 23.7 % (22.0-44.0); MEAN CORPUSCULAR HEMOGLOBIN 28.1 pg (26.0-34.0); MEAN CORPUSCULAR HGB CONC 33.9 G/dL (31.0-37.0); MEAN CORPUSCULAR VOLUME 83 fL (80-100); MONOCYTES # (AUTO) 1.6 K/uL (0.1-1.0); MONOCYTES % (AUTO) 11.3 % (2.0-9.0); NEUTROPHILS # (AUTO) 8.9 K/uL (1.8-7.7); PLATELET COUNT (AUTO) 292 K/uL (150-450); RED BLOOD CELL COUNT(AUTO) 4.41 MIL/uL (4.50-5.90); RED CELL DISTRIBUTION WIDTH 16.2 % (11.5-14.5)
[2017-10-21 06:45] LABS: CARBON DIOXIDE 26 mmol/L (22-29); CHLORIDE 97 mmol/L (98-107); POTASSIUM 3.8 mmol/L (3.5-5.1); SODIUM SERUM 132 mmol/L (136-145)
[2017-10-21 06:46] LABS: ANION GAP 9 mmol/L (8-16); CALCIUM, TOTAL 8.4 mg/dL (8.8-10.5); CREATININE 1.15 mg/dL (0.60-1.30); GLOMERULAR FILTR. RATE CALC > 60 mL/min (>60); GLUCOSE,RANDOM 329 mg/dL (70-110); UREA NITROGEN, BLOOD 15 mg/dL (7-18)
[2017-10-21] MEDS: VANCOMYCIN HCL 1.25 GM in DEXTROSE 5%-WATER 250 ML IV SCH ×3 (06:56→23:25)
[2017-10-21] MEDS: GABAPENTIN 300 MG CAPSULE PO SCH ×3 (09:00→20:14)
[2017-10-21] MEDS ORDERED: SODIUM CHLORIDE 0.9% 10 ML ONE (09:50)
[2017-10-21] MEDS ORDERED: BUPIVACAINE HCL/PF 0.5% 30 ML VIAL ONE (09:50)
[2017-10-21] MEDS ORDERED: LIDOCAINE HCL/PF 1% 30 ML VIAL ONE (09:50)
[2017-10-21] MEDS ORDERED: BACITRACIN 50,000 UNITS/VIAL ONE (09:51)
[2017-10-21] MEDS ORDERED: PROPOFOL 1000 MG/ISO-OSM 100 ML IV ONE (10:42)
[2017-10-21] MEDS ORDERED: SODIUM CL IRRIG SOLN BAG 3,000 ML IRRIG ONE (10:57)
[2017-10-21 11:33] LABS: GLUCOMETER DEV NAME(LOC) 6N 2D; GLUCOSE,POINT OF CARE 335 MG/DL (70-110)
[2017-10-21] MEDS ORDERED: LIDOCAINE HCL/PF 2% 5 ML VIAL INJ ONE (12:00)
[2017-10-21] MEDS ORDERED: PROPOFOL 1% 20 ML VIAL IVP ONE (12:00)
[2017-10-21] MEDS ORDERED: SODIUM CHLORIDE 0.9% 1,000 ML IV ONE (12:01)
[2017-10-21] MEDS ORDERED: THROMBIN, BOVINE 20000 UNITS/VIAL POWDER TP ONE (12:24)
[2017-10-21] MEDS ORDERED: GELATIN SPONGE,ABSORBABLE 50 MM TP ONE ×2 (12:24→12:43)
[2017-10-21] MEDS: MULTIVITAMINS WITH MINERALS, THERAPEUTIC TABLET PO SCH (14:00)
[2017-10-21] MEDS: MetFORMIN HCL 500 MG TABLET PO SCH ×2 (14:00→17:50)
[2017-10-21] MEDS: TAMSULOSIN HCL 0.4 MG CAPSULE PO SCH (14:00)
[2017-10-21 18:57] LABS: GLUCOMETER DEV NAME(LOC) 6N 1E; GLUCOSE,POINT OF CARE 298 MG/DL (70-110)
[2017-10-21 19:47] LABS: GLUCOMETER DEV NAME(LOC) 6N 2D; GLUCOSE,POINT OF CARE 349 MG/DL (70-110)
[2017-10-21] MEDS: NORTRIPTYLINE HCL 25 MG CAPSULE PO SCH (20:14)
[2017-10-21] MEDS: ATORVASTATIN CALCIUM 20 MG TABLET PO SCH (20:14)
[2017-10-21] MEDS: LORazepam 1 MG TABLET PO PRN (23:21)
[2017-10-22] MEDS: MORPHINE SULFATE 4 MG/ML SYRINGE IVP PRN ×5 (03:02→20:05)
[2017-10-22] MEDS: PIPERACILLIN/TAZO 3.375 GM/D5W 50 ML IV SCH ×4 (03:06→20:06)
[2017-10-22 04:34] VITALS: BP 117/65
[2017-10-22] MEDS: INSULIN LISPRO 100 UNITS/ML SQ PRN ×4 (05:53→20:18)
[2017-10-22] MEDS: VANCOMYCIN HCL 1.25 GM in DEXTROSE 5%-WATER 250 ML IV SCH ×3 (05:55→23:36)
[2017-10-22 06:52] LABS: BASOPHILS % (AUTO) 0.7 % (0.0-2.0); EOSINOPHILS % (AUTO) 3.2 % (1.0-6.0); HEMATOCRIT 36.4 % (41-53); HEMOGLOBIN 12.3 g/dL (13.5-17.5); LYMPHOCYTES # (AUTO) 3.7 K/uL (1.0-4.8); LYMPHOCYTES % (AUTO) 28.4 % (22.0-44.0); MEAN CORPUSCULAR HEMOGLOBIN 28.1 pg (26.0-34.0); MEAN CORPUSCULAR HGB CONC 33.9 G/dL (31.0-37.0); MEAN CORPUSCULAR VOLUME 83 fL (80-100); MONOCYTES # (AUTO) 1.7 K/uL (0.1-1.0); MONOCYTES % (AUTO) 13.4 % (2.0-9.0); NEUTROPHILS # (AUTO) 7.1 K/uL (1.8-7.7); NEUTROPHILS % (AUTO) 54.3 % (40.0-70.0); PLATELET COUNT (AUTO) 314 K/uL (150-450); RED CELL DISTRIBUTION WIDTH 16.4 % (11.5-14.5)
[2017-10-22 07:05] LABS: ANION GAP 7 mmol/L (8-16); CALCIUM, TOTAL 8.3 mg/dL (8.8-10.5); CARBON DIOXIDE 27 mmol/L (22-29); CHLORIDE 97 mmol/L (98-107); CREATININE 1.16 mg/dL (0.60-1.30); GLOMERULAR FILTR. RATE CALC > 60 mL/min (>60); GLUCOSE,RANDOM 322 mg/dL (70-110); POTASSIUM 3.8 mmol/L (3.5-5.1); SODIUM SERUM 131 mmol/L (136-145); UREA NITROGEN, BLOOD 14 mg/dL (7-18)
[2017-10-22 08:10] VITALS: BP 142/80
[2017-10-22] MEDS: TAMSULOSIN HCL 0.4 MG CAPSULE PO SCH (08:28)
[2017-10-22] MEDS: MetFORMIN HCL 500 MG TABLET PO SCH ×2 (08:28→18:12)
[2017-10-22] MEDS: GABAPENTIN 300 MG CAPSULE PO SCH ×3 (08:28→20:04)
[2017-10-22] MEDS: MULTIVITAMINS WITH MINERALS, THERAPEUTIC TABLET PO SCH (08:28)
[2017-10-22 11:12] VITALS: BP 126/83
[2017-10-22 11:23] LABS: GLUCOMETER DEV NAME(LOC) 6N 1E; GLUCOSE,POINT OF CARE 334 MG/DL (70-110)
[2017-10-22] MEDS ORDERED: MAGNESIUM SULFATE 4 GM/WATER 100 ML IV PRN (13:00)
[2017-10-22] MEDS ORDERED: MAGNESIUM SULFATE 2 GM in DEXTROSE 5%-WATER 50 ML IV PRN (13:00)
[2017-10-22 13:22] LABS: GLUCOMETER DEV NAME(LOC) 6N 2D; GLUCOSE,POINT OF CARE 219 MG/DL (70-110)
[2017-10-22 13:23] LABS: GLUCOMETER DEV NAME(LOC) 6N 2D; GLUCOSE,POINT OF CARE 318 MG/DL (70-110)
[2017-10-22 13:51] LABS: ALBUMIN 2.4 g/dL (3.4-5.0)
[2017-10-22] MEDS: MAGNESIUM OXIDE 400 MG TABLET PO PRN ×2 (16:08→20:05)
[2017-10-22 16:16] VITALS: BP 116/65
[2017-10-22 17:53] LABS: GLUCOMETER DEV NAME(LOC) 6N 2D; GLUCOSE,POINT OF CARE 290 MG/DL (70-110)
[2017-10-22] MEDS: HYDROCODONE/ACETAMINOPHEN 10-325 MG TABLET PO PRN (18:12)
[2017-10-22] MEDS: ATORVASTATIN CALCIUM 20 MG TABLET PO SCH (20:04)
[2017-10-22] MEDS: NORTRIPTYLINE HCL 25 MG CAPSULE PO SCH (20:04)
[2017-10-22 20:05] VITALS: BP 136/77
[2017-10-22 23:16] VITALS: BP 133/70
[2017-10-23] MEDS: LORazepam 1 MG TABLET PO PRN (00:06)
[2017-10-23] MEDS: MORPHINE SULFATE 4 MG/ML SYRINGE IVP PRN ×5 (00:06→21:05)
[2017-10-23 00:18] LABS: GLUCOMETER DEV NAME(LOC) 6N 1E; GLUCOSE,POINT OF CARE 269 MG/DL (70-110)
[2017-10-23] MEDS: PIPERACILLIN/TAZO 3.375 GM/D5W 50 ML IV SCH ×4 (03:20→21:05)
[2017-10-23 05:04] VITALS: BP 104/71
[2017-10-23] MEDS: VANCOMYCIN HCL 1.25 GM in DEXTROSE 5%-WATER 250 ML IV SCH ×3 (06:05→23:21)
[2017-10-23] MEDS: INSULIN LISPRO 100 UNITS/ML SQ PRN ×4 (06:28→19:58)
[2017-10-23] MEDS ORDERED: FentaNYL CITRATE-PF 100 MCG/2 ML VIAL IV ONE (06:35)
[2017-10-23] MEDS ORDERED: MIDAZOLAM HCL 2 MG/2 ML VIAL IVP ONE (06:35)
[2017-10-23 06:42] LABS: GLUCOMETER DEV NAME(LOC) 6N 1E; GLUCOSE,POINT OF CARE 321 MG/DL (70-110)
[2017-10-23 06:42] LABS: ANION GAP 8 mmol/L (8-16); CALCIUM, TOTAL 8.4 mg/dL (8.8-10.5); CARBON DIOXIDE 27 mmol/L (22-29); CHLORIDE 97 mmol/L (98-107); CREATININE 1.09 mg/dL (0.60-1.30); GLOMERULAR FILTR. RATE CALC > 60 mL/min (>60); GLUCOSE,RANDOM 291 mg/dL (70-110); POTASSIUM 3.8 mmol/L (3.5-5.1); SODIUM SERUM 132 mmol/L (136-145); UREA NITROGEN, BLOOD 16 mg/dL (7-18); VANCOMYCIN,RANDOM 19.9 mcg/mL (25.0-50.0)
[2017-10-23 08:05] VITALS: BP 130/102
[2017-10-23] MEDS: MetFORMIN HCL 500 MG TABLET PO SCH ×2 (08:30→17:52)
[2017-10-23] MEDS: MULTIVITAMINS WITH MINERALS, THERAPEUTIC TABLET PO SCH (08:30)
[2017-10-23] MEDS: TAMSULOSIN HCL 0.4 MG CAPSULE PO SCH (08:30)
[2017-10-23] MEDS: GABAPENTIN 300 MG CAPSULE PO SCH ×3 (08:30→19:52)
[2017-10-23] MEDS: HYDROCODONE/ACETAMINOPHEN 10-325 MG TABLET PO PRN (08:31)
[2017-10-23 09:48] LABS: INR 0.9 (0.9-1.1); PROTHROMBIN TIME 9.8 SEC (9.4-11.6)
[2017-10-23] MEDS ORDERED: HEPARIN SODIUM 1000 UNITS/NS 500 ML ONE (11:06)
[2017-10-23] MEDS ORDERED: SODIUM CHLORIDE 0.9% 1,000 ML IV ONE (14:22)
[2017-10-23 16:27] VITALS: BP 113/83
[2017-10-23 17:22] LABS: GLUCOMETER DEV NAME(LOC) 6N 2D; GLUCOSE,POINT OF CARE 339 MG/DL (70-110)
[2017-10-23 19:44] VITALS: BP 133/76
[2017-10-23] MEDS: NORTRIPTYLINE HCL 25 MG CAPSULE PO SCH (19:52)
[2017-10-23] MEDS: ATORVASTATIN CALCIUM 20 MG TABLET PO SCH (19:52)
[2017-10-23] MEDS: INSULIN GLARGINE,HUM.REC.ANLOG 100 UNITS/ML SQ SCH (19:57)
[2017-10-23 23:28] LABS: GLUCOMETER DEV NAME(LOC) 6N 1E; GLUCOSE,POINT OF CARE 324 MG/DL (70-110)
[2017-10-23 23:28] LABS: GLUCOMETER DEV NAME(LOC) 6N 1E; GLUCOSE,POINT OF CARE 342 MG/DL (70-110)
[2017-10-23 23:36] VITALS: BP 139/76
[2017-10-24] MEDS: MORPHINE SULFATE 4 MG/ML SYRINGE IVP PRN ×6 (01:35→23:03)
[2017-10-24] MEDS: PIPERACILLIN/TAZO 3.375 GM/D5W 50 ML IV SCH ×4 (03:12→19:46)
[2017-10-24 03:42] VITALS: BP 129/100
[2017-10-24] MEDS: VANCOMYCIN HCL 1.25 GM in DEXTROSE 5%-WATER 250 ML IV SCH ×3 (05:52→22:59)
[2017-10-24] MEDS: INSULIN LISPRO 100 UNITS/ML SQ PRN ×4 (05:58→20:01)
[2017-10-24 06:22] LABS: BASOPHILS % (AUTO) 0.7 % (0.0-2.0); EOSINOPHILS % (AUTO) 3.8 % (1.0-6.0); HEMATOCRIT 36.8 % (41-53); HEMOGLOBIN 12.3 g/dL (13.5-17.5); LYMPHOCYTES # (AUTO) 5.1 K/uL (1.0-4.8); LYMPHOCYTES % (AUTO) 30.6 % (22.0-44.0); MEAN CORPUSCULAR HEMOGLOBIN 27.9 pg (26.0-34.0); MEAN CORPUSCULAR HGB CONC 33.5 G/dL (31.0-37.0); MEAN CORPUSCULAR VOLUME 84 fL (80-100); MONOCYTES % (AUTO) 11.7 % (2.0-9.0); NEUTROPHILS # (AUTO) 8.9 K/uL (1.8-7.7); NEUTROPHILS % (AUTO) 53.2 % (40.0-70.0); PLATELET COUNT (AUTO) 399 K/uL (150-450); RED BLOOD CELL COUNT(AUTO) 4.41 MIL/uL (4.50-5.90); RED CELL DISTRIBUTION WIDTH 15.3 % (11.5-14.5)
[2017-10-24 06:28] LABS: GLUCOMETER DEV NAME(LOC) 6N 1E; GLUCOSE,POINT OF CARE 294 MG/DL (70-110)
[2017-10-24 07:58] VITALS: BP 138/78
[2017-10-24] MEDS: TAMSULOSIN HCL 0.4 MG CAPSULE PO SCH (08:52)
[2017-10-24] MEDS: GABAPENTIN 300 MG CAPSULE PO SCH ×3 (08:52→19:47)
[2017-10-24] MEDS: HYDROCODONE/ACETAMINOPHEN 10-325 MG TABLET PO PRN (08:53)
[2017-10-24] MEDS: MULTIVITAMINS WITH MINERALS, THERAPEUTIC TABLET PO SCH (08:53)
[2017-10-24] MEDS: MetFORMIN HCL 500 MG TABLET PO SCH ×2 (08:53→17:36)
[2017-10-24] MEDS: INSULIN GLARGINE,HUM.REC.ANLOG 100 UNITS/ML SQ SCH ×2 (08:55→20:00)
[2017-10-24 11:35] VITALS: BP 126/76
[2017-10-24 11:58] LABS: GLUCOMETER DEV NAME(LOC) 6N 2D; GLUCOSE,POINT OF CARE 285 MG/DL (70-110)
[2017-10-24 15:54] VITALS: BP 122/74
[2017-10-24 17:58] LABS: GLUCOMETER DEV NAME(LOC) 6N 2D; GLUCOSE,POINT OF CARE 252 MG/DL (70-110)
[2017-10-24 19:39] VITALS: BP 141/90
[2017-10-24] MEDS: ATORVASTATIN CALCIUM 20 MG TABLET PO SCH (19:47)
[2017-10-24] MEDS: NORTRIPTYLINE HCL 25 MG CAPSULE PO SCH (19:47)
[2017-10-24 20:32] LABS: GLUCOMETER DEV NAME(LOC) 6N 1E; GLUCOSE,POINT OF CARE 281 MG/DL (70-110)
[2017-10-24 23:50] VITALS: BP 145/79
[2017-10-25] MEDS: PIPERACILLIN/TAZO 3.375 GM/D5W 50 ML IV SCH ×2 (03:36→09:29)
[2017-10-25 04:24] VITALS: BP 123/90
[2017-10-25] MEDS: MORPHINE SULFATE 4 MG/ML SYRINGE IVP PRN ×4 (04:30→21:32)
[2017-10-25] MEDS: VANCOMYCIN HCL 1.25 GM in DEXTROSE 5%-WATER 250 ML IV SCH ×3 (06:33→23:12)
[2017-10-25] MEDS: INSULIN LISPRO 100 UNITS/ML SQ PRN ×4 (06:37→20:26)
[2017-10-25 07:02] LABS: GLUCOMETER DEV NAME(LOC) 6N 2D; GLUCOSE,POINT OF CARE 282 MG/DL (70-110)
[2017-10-25 07:19] LABS: ANION GAP 8 mmol/L (8-16); CALCIUM, TOTAL 8.5 mg/dL (8.8-10.5); CARBON DIOXIDE 28 mmol/L (22-29); CHLORIDE 97 mmol/L (98-107); CREATININE 1.12 mg/dL (0.60-1.30); GLOMERULAR FILTR. RATE CALC > 60 mL/min (>60); GLUCOSE,RANDOM 276 mg/dL (70-110); POTASSIUM 4.2 mmol/L (3.5-5.1); SODIUM SERUM 133 mmol/L (136-145); UREA NITROGEN, BLOOD 14 mg/dL (7-18)
[2017-10-25 07:36] VITALS: BP 119/83
[2017-10-25] MEDS: MULTIVITAMINS WITH MINERALS, THERAPEUTIC TABLET PO SCH (08:10)
[2017-10-25] MEDS: MetFORMIN HCL 500 MG TABLET PO SCH ×2 (08:10→17:23)
[2017-10-25] MEDS: TAMSULOSIN HCL 0.4 MG CAPSULE PO SCH (08:10)
[2017-10-25] MEDS: GABAPENTIN 300 MG CAPSULE PO SCH ×3 (08:10→20:20)
[2017-10-25] MEDS: INSULIN GLARGINE,HUM.REC.ANLOG 100 UNITS/ML SQ SCH ×2 (08:16→20:25)
[2017-10-25 11:34] VITALS: BP 132/75
[2017-10-25 13:03] LABS: GLUCOMETER DEV NAME(LOC) 6N 1E; GLUCOSE,POINT OF CARE 267 MG/DL (70-110)
[2017-10-25 15:10] VITALS: BP 129/75
[2017-10-25 17:27] LABS: GLUCOMETER DEV NAME(LOC) 6N 1E; GLUCOSE,POINT OF CARE 282 MG/DL (70-110)
[2017-10-25] MEDS: HYDROCODONE/ACETAMINOPHEN 10-325 MG TABLET PO PRN (18:52)
[2017-10-25 19:18] VITALS: BP 125/78
[2017-10-25] MEDS: NORTRIPTYLINE HCL 25 MG CAPSULE PO SCH (20:20)
[2017-10-25] MEDS: ATORVASTATIN CALCIUM 20 MG TABLET PO SCH (20:20)
[2017-10-25 23:17] VITALS: BP 128/70
[2017-10-26 00:53] LABS: GLUCOMETER DEV NAME(LOC) 6N 1E; GLUCOSE,POINT OF CARE 156 MG/DL (70-110)
[2017-10-26] MEDS: MORPHINE SULFATE 4 MG/ML SYRINGE IVP PRN ×6 (01:30→22:34)
[2017-10-26 04:43] VITALS: BP 124/74
[2017-10-26] MEDS: INSULIN LISPRO 100 UNITS/ML SQ PRN ×3 (06:01→17:45)
[2017-10-26 06:13] LABS: GLUCOMETER DEV NAME(LOC) 6N 2D; GLUCOSE,POINT OF CARE 196 MG/DL (70-110)
[2017-10-26 06:26] LABS: ANION GAP 7 mmol/L (8-16); CALCIUM, TOTAL 8.7 mg/dL (8.8-10.5); CARBON DIOXIDE 30 mmol/L (22-29); CHLORIDE 98 mmol/L (98-107); CREATININE 1.16 mg/dL (0.60-1.30); GLOMERULAR FILTR. RATE CALC > 60 mL/min (>60); GLUCOSE,RANDOM 178 mg/dL (70-110); SODIUM SERUM 135 mmol/L (136-145); UREA NITROGEN, BLOOD 16 mg/dL (7-18)
[2017-10-26] MEDS: VANCOMYCIN HCL 1.25 GM in DEXTROSE 5%-WATER 250 ML IV SCH ×3 (07:14→22:34)
[2017-10-26 07:51] VITALS: BP 124/73
[2017-10-26] MEDS: MetFORMIN HCL 500 MG TABLET PO SCH ×2 (08:04→17:38)
[2017-10-26] MEDS: TAMSULOSIN HCL 0.4 MG CAPSULE PO SCH (08:05)
[2017-10-26] MEDS: GABAPENTIN 300 MG CAPSULE PO SCH ×3 (08:05→19:48)
[2017-10-26] MEDS: MULTIVITAMINS WITH MINERALS, THERAPEUTIC TABLET PO SCH (08:05)
[2017-10-26] MEDS: INSULIN GLARGINE,HUM.REC.ANLOG 100 UNITS/ML SQ SCH ×2 (08:16→22:37)
[2017-10-26 11:28] VITALS: BP 135/76
[2017-10-26 14:18] LABS: GLUCOMETER DEV NAME(LOC) 6N 1E; GLUCOSE,POINT OF CARE 181 MG/DL (70-110)
[2017-10-26 15:33] VITALS: BP 127/74
[2017-10-26 17:53] LABS: GLUCOMETER DEV NAME(LOC) 6N 1E; GLUCOSE,POINT OF CARE 197 MG/DL (70-110)
[2017-10-26 19:24] VITALS: BP 114/73
[2017-10-26] MEDS: NORTRIPTYLINE HCL 25 MG CAPSULE PO SCH (19:47)
[2017-10-26] MEDS: ATORVASTATIN CALCIUM 20 MG TABLET PO SCH (19:48)
[2017-10-26 21:33] LABS: GLUCOMETER DEV NAME(LOC) 6N 1E; GLUCOSE,POINT OF CARE 197 MG/DL (70-110)
[2017-10-26] MEDS: LORazepam 1 MG TABLET PO PRN (22:33)
[2017-10-27 00:18] VITALS: BP 123/74
[2017-10-27] MEDS: MORPHINE SULFATE 4 MG/ML SYRINGE IVP PRN ×4 (05:23→17:49)
[2017-10-27] MEDS: INSULIN LISPRO 100 UNITS/ML SQ PRN ×4 (05:23→20:38)
[2017-10-27 05:30] VITALS: BP 131/74
[2017-10-27 05:38] LABS: GLUCOMETER DEV NAME(LOC) 6N 2D; GLUCOSE,POINT OF CARE 225 MG/DL (70-110)
[2017-10-27] MEDS: VANCOMYCIN HCL 1.25 GM in DEXTROSE 5%-WATER 250 ML IV SCH ×2 (06:26→15:48)
[2017-10-27 06:35] LABS: BASOPHILS % (AUTO) 0.9 % (0.0-2.0); HEMATOCRIT 38.4 % (41-53); HEMOGLOBIN 13.3 g/dL (13.5-17.5); LYMPHOCYTES # (AUTO) 4.2 K/uL (1.0-4.8); LYMPHOCYTES % (AUTO) 32.1 % (22.0-44.0); MEAN CORPUSCULAR HEMOGLOBIN 28.5 pg (26.0-34.0); MEAN CORPUSCULAR HGB CONC 34.6 G/dL (31.0-37.0); MEAN CORPUSCULAR VOLUME 82 fL (80-100); MONOCYTES # (AUTO) 1.5 K/uL (0.1-1.0); MONOCYTES % (AUTO) 11.6 % (2.0-9.0); NEUTROPHILS # (AUTO) 7.2 K/uL (1.8-7.7); NEUTROPHILS % (AUTO) 54.4 % (40.0-70.0); PLATELET COUNT (AUTO) 560 K/uL (150-450); RED BLOOD CELL COUNT(AUTO) 4.66 MIL/uL (4.50-5.90); RED CELL DISTRIBUTION WIDTH 15.8 % (11.5-14.5)
[2017-10-27 07:05] VITALS: BP 125/72
[2017-10-27 07:12] LABS: ANION GAP 8 mmol/L (8-16); CALCIUM, TOTAL 8.4 mg/dL (8.8-10.5); CARBON DIOXIDE 28 mmol/L (22-29); CHLORIDE 99 mmol/L (98-107); CREATININE 1.06 mg/dL (0.60-1.30); GLOMERULAR FILTR. RATE CALC > 60 mL/min (>60); GLUCOSE,RANDOM 213 mg/dL (70-110); POTASSIUM 4.1 mmol/L (3.5-5.1); SODIUM SERUM 135 mmol/L (136-145); UREA NITROGEN, BLOOD 16 mg/dL (7-18); VANCOMYCIN,RANDOM 19.6 mcg/mL (25.0-50.0)
[2017-10-27] MEDS: GABAPENTIN 300 MG CAPSULE PO SCH ×3 (09:03→20:31)
[2017-10-27] MEDS: MetFORMIN HCL 500 MG TABLET PO SCH ×2 (09:03→17:45)
[2017-10-27] MEDS: TAMSULOSIN HCL 0.4 MG CAPSULE PO SCH (09:03)
[2017-10-27] MEDS: MULTIVITAMINS WITH MINERALS, THERAPEUTIC TABLET PO SCH (09:03)
[2017-10-27] MEDS: INSULIN GLARGINE,HUM.REC.ANLOG 100 UNITS/ML SQ SCH ×2 (09:13→20:37)
[2017-10-27 11:48] VITALS: BP 133/95
[2017-10-27] MEDS: HYDROCODONE/ACETAMINOPHEN 10-325 MG TABLET PO PRN ×2 (12:08→20:31)
[2017-10-27 14:23] LABS: GLUCOMETER DEV NAME(LOC) 6N 2D; GLUCOSE,POINT OF CARE 254 MG/DL (70-110)
[2017-10-27 15:43] VITALS: BP 127/81
[2017-10-27 19:44] LABS: GLUCOMETER DEV NAME(LOC) 6N 1E; GLUCOSE,POINT OF CARE 184 MG/DL (70-110)
[2017-10-27 20:10] VITALS: BP 141/89
[2017-10-27] MEDS: ATORVASTATIN CALCIUM 20 MG TABLET PO SCH (20:31)
[2017-10-27] MEDS: NORTRIPTYLINE HCL 25 MG CAPSULE PO SCH (20:36)
[2017-10-27 23:53] LABS: GLUCOMETER DEV NAME(LOC) 6N 1E; GLUCOSE,POINT OF CARE 138 MG/DL (70-110)
== END 2017-10-27 21:15 | DRG 710 ==
LOC: EMS 09:31 → 6N 11:49
PROVIDERS: ADMIT Family Medicine; ATTEND Family Medicine
PROC: 0QBK0ZX Excision of Left Fibula, Open Approach, Diagnostic (ICD-10-PCS; 2017-10-21)
PROC: 0QBK0ZZ Excision of Left Fibula, Open Approach (ICD-10-PCS; 2017-10-21)
PROC: 0S9G0ZZ Drainage of Left Ankle Joint, Open Approach (ICD-10-PCS; 2017-10-21)
PROC: 02HV33Z Insertion of Infusion Device into Superior Vena Cava, Percutaneous Approach (ICD-10-PCS; principal; 2017-10-23)
PROC: B548ZZA Ultrasonography of Superior Vena Cava, Guidance (ICD-10-PCS; 2017-10-23)
DX: A41.9 Sepsis, unspecified organism (principal); N17.0 Acute kidney failure with tubular necrosis; E11.621 Type 2 diabetes mellitus with foot ulcer; F11.20 Opioid dependence, uncomplicated; E11.65 Type 2 diabetes mellitus with hyperglycemia; E11.42 Type 2 diabetes mellitus with diabetic polyneuropathy; E11.69 Type 2 diabetes mellitus with other specified complication; L97.509 Non-pressure chronic ulcer of other part of unspecified foot with unspecified severity; M86.8X7 Other osteomyelitis, ankle and foot; L02.416 Cutaneous abscess of left lower limb; G89.4 Chronic pain syndrome; F19.10 Other psychoactive substance abuse, uncomplicated; E78.5 Hyperlipidemia, unspecified; I10 Essential (primary) hypertension; B95.61 Methicillin susceptible Staphylococcus aureus infection as the cause of diseases classified elsewhere; F10.20 Alcohol dependence, uncomplicated; F12.90 Cannabis use, unspecified, uncomplicated; F17.210 Nicotine dependence, cigarettes, uncomplicated; Z89.422 Acquired absence of other left toe(s); Z89.511 Acquired absence of right leg below knee; Z91.19 Patient's noncompliance with other medical treatment and regimen; Z79.4 Long term (current) use of insulin; Z79.899 Other long term (current) drug therapy; Z23 Encounter for immunization
CPT/HCPCS: 36569; 73723; 83036; 83605; 83735; 85651; 87040; 87070; 87081; 87205; 88307; 88311; 93005; 96365; 96372; 96375; 96376; 99285; A9585; J1644; J1815; J1885; J2250; J2270; J2405; J2543; J2704; J3010; J3370; J3490; J3535; J7030; J7050; J7060; J7120

== ENCOUNTER 2017-12-03 08:28 | Emergency (ER) | payer MEDICAID ==
[~2017-12-03] VITALS: Ht 195.6 cm; Wt 144.1 kg
[~2017-12-03 08:28] MED LIST changes: -ALPR0.5T8 PO; -DULO60CA44 PO; -INSU100V12 SQ; -LISI-660 PO; +LORA1TAB3 PO; -SULF1TAB42 PO
[2017-12-03 08:59] LABS: GLUCOSE,POINT OF CARE 212 MG/DL (70-110)
[2017-12-03] MEDS ORDERED: ALTEPLASE 2 MG/VIAL IVCATH ONE (10:30)
[2017-12-03] MEDS ORDERED: HYDROCODONE/ACETAMINOPHEN 10-325 MG TABLET PO ONE (12:00)
[2017-12-03 12:45] VITALS: BP 118/80
== END 2017-12-03 13:05 | disposition home or self-care (01) ==
LOC: EMS 08:30
DX: T82.898A Other specified complication of vascular prosthetic devices, implants and grafts, initial encounter (principal); E11.9 Type 2 diabetes mellitus without complications; I11.9 Hypertensive heart disease without heart failure; F17.210 Nicotine dependence, cigarettes, uncomplicated; F12.90 Cannabis use, unspecified, uncomplicated
CPT/HCPCS: 37195; 82962; 99284; J2997; 99283

== ENCOUNTER 2017-12-31 13:08 | Emergency (ER) | payer MEDICAID ==
[~2017-12-31] VITALS: Ht 195.6 cm; Wt 144.1 kg
[2017-12-31] MEDS ORDERED: BUPR100SR PO (13:12)
[2017-12-31 13:24] LABS: GLUCOSE,POINT OF CARE 273 MG/DL (70-110)
[2017-12-31] MEDS ORDERED: ALTEPLASE 2 MG/VIAL IVCATH ONE (14:45)
[2017-12-31 17:14] VITALS: BP 124/66
== END 2017-12-31 17:21 | disposition home or self-care (01) ==
LOC: EMS 13:09
DX: T82.898A Other specified complication of vascular prosthetic devices, implants and grafts, initial encounter (principal); G89.29 Other chronic pain; F41.9 Anxiety disorder, unspecified; E11.9 Type 2 diabetes mellitus without complications; I11.9 Hypertensive heart disease without heart failure; M86.9 Osteomyelitis, unspecified; F17.210 Nicotine dependence, cigarettes, uncomplicated; F12.90 Cannabis use, unspecified, uncomplicated; Z79.84 Long term (current) use of oral hypoglycemic drugs; Z79.4 Long term (current) use of insulin
CPT/HCPCS: 36245; 37195; 76937; 82962; 99284; J2997

== ENCOUNTER → 2018-04-07 | Outpatient (CLI) | payer MEDICAID ==
[~2018-04-07] VITALS: Ht 195.6 cm; Wt 122.9 kg
[~2018-04-07] MED LIST changes: +BUPR100SR PO; -HYDR-305 PO; +HYDR-4455 PO; +LIDOCAINE 2% 5 ML JELLY TP ONE
[2018-04-07 08:05] VITALS: BP 119/85
== END | disposition home or self-care (01) ==
LOC: HBOWC 07:18
PROVIDERS: ATTEND Internal Medicine
DX: E11.622 Type 2 diabetes mellitus with other skin ulcer (principal); L97.321 Non-pressure chronic ulcer of left ankle limited to breakdown of skin; I11.0 Hypertensive heart disease with heart failure; E11.65 Type 2 diabetes mellitus with hyperglycemia; I50.9 Heart failure, unspecified; F17.210 Nicotine dependence, cigarettes, uncomplicated; E11.69 Type 2 diabetes mellitus with other specified complication; M86.8X7 Other osteomyelitis, ankle and foot; G89.4 Chronic pain syndrome; E78.5 Hyperlipidemia, unspecified; Z79.4 Long term (current) use of insulin; F41.9 Anxiety disorder, unspecified; F12.929 Cannabis use, unspecified with intoxication, unspecified; Z89.422 Acquired absence of other left toe(s); Z89.511 Acquired absence of right leg below knee

== ENCOUNTER → 2018-04-14 | Outpatient (CLI) | payer MEDICAID ==
[~2018-04-14] MED LIST changes: -LIDOCAINE 2% 5 ML JELLY TP ONE; +LIDOCAINE 4% 50 ML SOLUTION TP ONE; -LORA1TAB3 PO
[2018-04-14 08:05] VITALS: BP 121/83
== END | disposition home or self-care (01) ==
LOC: HBOWC 07:50
PROVIDERS: ATTEND Internal Medicine
DX: E11.622 Type 2 diabetes mellitus with other skin ulcer (principal); L97.325 Non-pressure chronic ulcer of left ankle with muscle involvement without evidence of necrosis; E11.51 Type 2 diabetes mellitus with diabetic peripheral angiopathy without gangrene; I25.10 Atherosclerotic heart disease of native coronary artery without angina pectoris; E11.69 Type 2 diabetes mellitus with other specified complication; M86.662 Other chronic osteomyelitis, left tibia and fibula; I11.0 Hypertensive heart disease with heart failure; I50.9 Heart failure, unspecified; E11.65 Type 2 diabetes mellitus with hyperglycemia; G89.4 Chronic pain syndrome; F12.90 Cannabis use, unspecified, uncomplicated; F17.210 Nicotine dependence, cigarettes, uncomplicated; F41.9 Anxiety disorder, unspecified; Z79.4 Long term (current) use of insulin; Z89.511 Acquired absence of right leg below knee; Z89.422 Acquired absence of other left toe(s)
CPT/HCPCS: 11042

== ENCOUNTER → 2018-04-21 | Outpatient (CLI) | payer MEDICAID ==
[~2018-04-21] MED LIST changes: -LIDOCAINE 4% 50 ML SOLUTION TP ONE
[2018-04-21 08:05] VITALS: BP 130/71
== END | disposition home or self-care (01) ==
LOC: HBOWC 07:33
PROVIDERS: ATTEND Internal Medicine
DX: E11.622 Type 2 diabetes mellitus with other skin ulcer (principal); L97.325 Non-pressure chronic ulcer of left ankle with muscle involvement without evidence of necrosis; E11.51 Type 2 diabetes mellitus with diabetic peripheral angiopathy without gangrene; I25.10 Atherosclerotic heart disease of native coronary artery without angina pectoris; E11.69 Type 2 diabetes mellitus with other specified complication; M86.662 Other chronic osteomyelitis, left tibia and fibula; I11.0 Hypertensive heart disease with heart failure; I50.9 Heart failure, unspecified; E11.65 Type 2 diabetes mellitus with hyperglycemia; G89.4 Chronic pain syndrome; F12.90 Cannabis use, unspecified, uncomplicated; F17.210 Nicotine dependence, cigarettes, uncomplicated; F41.9 Anxiety disorder, unspecified; Z79.4 Long term (current) use of insulin; Z89.511 Acquired absence of right leg below knee; Z89.422 Acquired absence of other left toe(s)

== ENCOUNTER 2018-07-05 07:03 | Inpatient (IN) | payer MEDICAID ==
[~2018-07-05] VITALS: Ht 195.6 cm; Wt 124.6 kg
[~2018-07-05 07:03] MED LIST changes: -ALBU8HFA IH; -ATOR20TA86 PO; -BUPR100SR PO; +SODIUM CHLORIDE 0.9% 1,000 ML IV ONE
[2018-07-05] MEDS ORDERED: RINGERS SOLUTION,LACTATED 1,000 ML IV ONE (08:00)
[2018-07-05] MEDS ORDERED: CeFAZolin 2 GM/DEXTROSE 50 ML IV ONE (08:30)
[2018-07-05] MEDS ORDERED: LORA1TAB3 PO (11:27)
[2018-07-05] MEDS ORDERED: POTA20TA82 PO (11:27)
[2018-07-06] MEDS ORDERED: RINGERS SOLUTION,LACTATED 1,000 ML IV ONE ×2 (08:00→08:11)
[2018-07-06] MEDS ORDERED: CeFAZolin 2 GM/DEXTROSE 50 ML IV ONE (08:13)
[2018-07-06] MEDS ORDERED: SODIUM CHLORIDE 0.9% 1,000 ML IV ONE (08:15)
[2018-07-06 08:41] LABS: BASOPHILS % (AUTO) 1.1 % (0.0-2.0); EOSINOPHILS % (AUTO) 3.8 % (1.0-6.0); HEMATOCRIT 49.3 % (41-53); HEMOGLOBIN 16.1 g/dL (13.5-17.5); LYMPHOCYTES # (AUTO) 4.4 K/uL (1.0-4.8); LYMPHOCYTES % (AUTO) 38.3 % (22.0-44.0); MEAN CORPUSCULAR HEMOGLOBIN 26.8 pg (26.0-34.0); MEAN CORPUSCULAR HGB CONC 32.7 G/dL (31.0-37.0); MEAN CORPUSCULAR VOLUME 82 fL (80-100); MONOCYTES % (AUTO) 9.1 % (2.0-9.0); NEUTROPHILS # (AUTO) 5.4 K/uL (1.8-7.7); NEUTROPHILS % (AUTO) 47.7 % (40.0-70.0); PLATELET COUNT (AUTO) 288 K/uL (150-450); RED BLOOD CELL COUNT(AUTO) 6.02 MIL/uL (4.50-5.90); RED CELL DISTRIBUTION WIDTH 15.9 % (11.5-14.5)
[2018-07-06 08:50] LABS: ANION GAP 9 mmol/L (8-16); CALCIUM, TOTAL 9.1 mg/dL (8.8-10.5); CARBON DIOXIDE 25 mmol/L (22-29); CHLORIDE 100 mmol/L (98-107); CREATININE 0.86 mg/dL (0.60-1.30); GLOMERULAR FILTR. RATE CALC > 60 mL/min (>60); GLUCOSE,RANDOM 203 mg/dL (70-110); POTASSIUM 4.2 mmol/L (3.5-5.1); SODIUM SERUM 134 mmol/L (136-145); UREA NITROGEN, BLOOD 10 mg/dL (7-18)
[2018-07-06 08:55] LABS: ALANINE AMINOTRANSFERASE 23 U/L (12-78); ALBUMIN 3.4 g/dL (3.4-5.0); ALKALINE PHOSPHATASE 120 U/L (46-116); ASPARTATE AMINOTRANSFERASE 17 U/L (15-37); BILIRUBIN,TOTAL 0.6 mg/dL (0.1-1.0); TOTAL PROTEIN, SERUM 7.5 g/dL (6.4-8.2)
[2018-07-06] MEDS ORDERED: BUPIVACAINE HCL/PF 0.5% 30 ML VIAL ONE (09:37)
[2018-07-06] MEDS ORDERED: ALBU8.5H8 IH (10:20)
[2018-07-06] MEDS ORDERED: HYDR-4031 PO (10:21)
[2018-07-06] MEDS ORDERED: ASPI-1227 PO (10:22)
[2018-07-06] MEDS ORDERED: ATOR20TA65 PO (10:23)
[2018-07-06] MEDS ORDERED: MORP30CA17 PO (10:24)
[2018-07-06] MEDS ORDERED: MELA5TAB3 PO (10:25)
[2018-07-06] MEDS ORDERED: TEMA15CA PO (10:25)
[2018-07-06] MEDS ORDERED: LIDOCAINE/PF 1% 30 ML VIAL ONE (10:59)
[2018-07-06] MEDS ORDERED: BUPIVACAINE HCL/PF 0.25% 30 ML VIAL ONE (10:59)
[2018-07-06] MEDS ORDERED: MIDAZOLAM HCL 2 MG/2 ML VIAL IVP ONE (12:00)
[2018-07-06] MEDS ORDERED: FentaNYL CITRATE-PF 100 MCG/2 ML VIAL IVP ONE (12:00)
[2018-07-06] MEDS ORDERED: HYDROmorphone 2 MG/ML SYRINGE ONE (12:24)
[2018-07-06] MEDS ORDERED: FentaNYL CITRATE-PF 100 MCG/2 ML VIAL ONE (12:26)
[2018-07-06] MEDS: HYDROmorphone 2 MG/ML SYRINGE IVP PRN ×3 (12:27→13:00)
[2018-07-06] MEDS: FentaNYL CITRATE-PF 100 MCG/2 ML VIAL IVP PRN ×2 (12:29→13:08)
[2018-07-06] MEDS ORDERED: BISACODYL 10 MG RECTAL RECTAL SUPPOSITORY PR PRN (12:45)
[2018-07-06] MEDS ORDERED: MEPERIDINE-PF 25 MG/ML VIAL IVP PRN (12:45)
[2018-07-06] MEDS ORDERED: ACETAMINOPHEN 325 MG TABLET PO PRN (12:45)
[2018-07-06 14:02] VITALS: BP 130/70
[2018-07-06] MEDS: HYDROCODONE/ACETAMINOPHEN 5-325 MG TABLET PO PRN ×2 (15:29→21:31)
[2018-07-06] MEDS ORDERED: SODIUM CHLORIDE 0.9% 500 ML IV ONE (16:54)
[2018-07-06] MEDS: CeFAZolin 1 GM/DEXTROSE 50 ML IV SCH (17:32)
[2018-07-06] MEDS: ENOXAPARIN SODIUM 40 MG/0.4 ML PF SYRINGE SQ SCH (17:32)
[2018-07-06] MEDS: MORPHINE SULFATE 4 MG/ML SYRINGE IVP PRN ×2 (18:25→23:48)
[2018-07-06] MEDS ORDERED: TEMAZEPAM 15 MG CAPSULE PO PRN (19:30)
[2018-07-06] MEDS ORDERED: DEXTROSE 50%-WATER 25 GM/50 ML SYRINGE IVP PRN (19:30)
[2018-07-06] MEDS ORDERED: MELATONIN 5 MG TABLET PO PRN (19:30)
[2018-07-06 19:40] VITALS: BP 131/96
[2018-07-06] MEDS: OXYGEN THERAPY IH SCH (20:00)
[2018-07-06] MEDS: GABAPENTIN 300 MG CAPSULE PO SCH (20:30)
[2018-07-06] MEDS: ZOLPIDEM TARTRATE 5 MG TABLET PO PRN ×2 (20:30→23:48)
[2018-07-06] MEDS: NORTRIPTYLINE HCL 25 MG CAPSULE PO SCH (20:31)
[2018-07-06] MEDS: INSULIN LISPRO 100 UNITS/ML SQ PRN (20:32)
[2018-07-06 22:07] LABS: GLUCOMETER DEV NAME(LOC) 6N.1; GLUCOSE,POINT OF CARE 153 MG/DL (70-110)
[2018-07-07] VITALS (7 sets, daily range): BP systolic 123–161; BP diastolic 73–92
[2018-07-07] MEDS: MORPHINE SULFATE 4 MG/ML SYRINGE IVP PRN ×7 (03:22→22:40)
[2018-07-07] MEDS: CeFAZolin 1 GM/DEXTROSE 50 ML IV SCH (03:32)
[2018-07-07] MEDS: INSULIN LISPRO 100 UNITS/ML SQ PRN ×4 (05:47→22:56)
[2018-07-07] MEDS: ENOXAPARIN SODIUM 40 MG/0.4 ML PF SYRINGE SQ SCH (08:14)
[2018-07-07] MEDS: GABAPENTIN 300 MG CAPSULE PO SCH ×3 (08:14→22:32)
[2018-07-07] MEDS: TAMSULOSIN HCL 0.4 MG CAPSULE PO SCH (08:15)
[2018-07-07] MEDS: ATORVASTATIN CALCIUM 20 MG TABLET PO SCH (08:15)
[2018-07-07] MEDS: MetFORMIN HCL 500 MG TABLET PO SCH ×2 (08:15→17:56)
[2018-07-07] MEDS ORDERED: IPRATROPIUM BROMIDE 0.5 MG/2.5 ML NEB SOLUTION NEB PRN (09:30)
[2018-07-07] MEDS ORDERED: ALBUTEROL SULFATE 2.5 MG/0.5 ML NEB SOLUTION NEB PRN (09:30)
[2018-07-07 10:08] LABS: GLUCOMETER DEV NAME(LOC) 6N.2; GLUCOSE,POINT OF CARE 191 MG/DL (70-110)
[2018-07-07 11:19] LABS: GLUCOMETER DEV NAME(LOC) 6N.1; GLUCOSE,POINT OF CARE 191 MG/DL (70-110)
[2018-07-07 18:24] LABS: GLUCOMETER DEV NAME(LOC) 6N.1; GLUCOSE,POINT OF CARE 177 MG/DL (70-110)
[2018-07-07] MEDS: IPRATROPIUM BROMIDE 0.5 MG/2.5 ML NEB SOLUTION NEB SCH (19:56)
[2018-07-07] MEDS: ALBUTEROL SULFATE 2.5 MG/0.5 ML NEB SOLUTION NEB SCH (19:57)
[2018-07-07] MEDS: NORTRIPTYLINE HCL 25 MG CAPSULE PO SCH (22:38)
[2018-07-08] MEDS: IPRATROPIUM BROMIDE 0.5 MG/2.5 ML NEB SOLUTION NEB SCH ×3 (01:58→13:56)
[2018-07-08] MEDS: ALBUTEROL SULFATE 2.5 MG/0.5 ML NEB SOLUTION NEB SCH ×3 (01:58→13:56)
[2018-07-08 02:04] LABS: GLUCOMETER DEV NAME(LOC) 6N.1; GLUCOSE,POINT OF CARE 249 MG/DL (70-110)
[2018-07-08] MEDS: MORPHINE SULFATE 4 MG/ML SYRINGE IVP PRN (02:15)
[2018-07-08 04:00] VITALS: BP 131/84
[2018-07-08] MEDS ORDERED: ONDANSETRON HCL 4 MG/2 ML VIAL IVP ONE (05:38)
[2018-07-08] MEDS ORDERED: KETOROLAC TROMETHAMINE 60 MG/2 ML VIAL IM ONE (05:38)
[2018-07-08] MEDS ORDERED: LIDOCAINE/PF 2% 5 ML VIAL IM ONE (05:38)
[2018-07-08] MEDS ORDERED: PROPOFOL 1% 20 ML VIAL IVP ONE (05:38)
[2018-07-08] MEDS: HYDROmorphone 2 MG/ML SYRINGE IVP PRN ×2 (06:19→12:12)
[2018-07-08 06:24] LABS: BASOPHILS % (AUTO) 0.4 % (0.0-2.0); EOSINOPHILS % (AUTO) 6.2 % (1.0-6.0); HEMATOCRIT 39.1 % (41-53); HEMOGLOBIN 13.1 g/dL (13.5-17.5); LYMPHOCYTES # (AUTO) 4.4 K/uL (1.0-4.8); LYMPHOCYTES % (AUTO) 36.4 % (22.0-44.0); MEAN CORPUSCULAR HEMOGLOBIN 27.7 pg (26.0-34.0); MEAN CORPUSCULAR HGB CONC 33.4 G/dL (31.0-37.0); MEAN CORPUSCULAR VOLUME 83 fL (80-100); MONOCYTES # (AUTO) 1.4 K/uL (0.1-1.0); MONOCYTES % (AUTO) 11.4 % (2.0-9.0); NEUTROPHILS # (AUTO) 5.5 K/uL (1.8-7.7); NEUTROPHILS % (AUTO) 45.6 % (40.0-70.0); PLATELET COUNT (AUTO) 255 K/uL (150-450); RED BLOOD CELL COUNT(AUTO) 4.71 MIL/uL (4.50-5.90); RED CELL DISTRIBUTION WIDTH 15.8 % (11.5-14.5)
[2018-07-08] MEDS: INSULIN LISPRO 100 UNITS/ML SQ PRN ×2 (06:33→12:12)
[2018-07-08 06:57] LABS: ANION GAP 6 mmol/L (8-16); CALCIUM, TOTAL 8.3 mg/dL (8.8-10.5); CARBON DIOXIDE 28 mmol/L (22-29); CHLORIDE 99 mmol/L (98-107); CREATININE 0.94 mg/dL (0.60-1.30); GLOMERULAR FILTR. RATE CALC > 60 mL/min (>60); GLUCOSE,RANDOM 297 mg/dL (70-110); POTASSIUM 4.1 mmol/L (3.5-5.1); SODIUM SERUM 133 mmol/L (136-145); UREA NITROGEN, BLOOD 11 mg/dL (7-18)
[2018-07-08 07:25] VITALS: BP 128/72
[2018-07-08] MEDS: OXYGEN THERAPY IH SCH (08:00)
[2018-07-08 08:14] LABS: GLUCOMETER DEV NAME(LOC) 6N.2; GLUCOSE,POINT OF CARE 316 MG/DL (70-110)
[2018-07-08] MEDS: ENOXAPARIN SODIUM 40 MG/0.4 ML PF SYRINGE SQ SCH (08:35)
[2018-07-08] MEDS: ATORVASTATIN CALCIUM 20 MG TABLET PO SCH (08:35)
[2018-07-08] MEDS: MetFORMIN HCL 500 MG TABLET PO SCH (08:35)
[2018-07-08] MEDS: TAMSULOSIN HCL 0.4 MG CAPSULE PO SCH (08:36)
[2018-07-08] MEDS: GABAPENTIN 300 MG CAPSULE PO SCH (08:36)
[2018-07-08 12:11] VITALS: BP 141/86
[2018-07-08] MEDS ORDERED: CEPH500 PO (13:44)
[2018-07-08] MEDS ORDERED: ACET-2247 PO (13:45)
[2018-07-08] MEDS ORDERED: TRAM50TA4 PO (13:47)
[2018-07-08] MEDS: HYDROCODONE/ACETAMINOPHEN 5-325 MG TABLET PO PRN (14:45)
[2018-07-08 17:49] LABS: GLUCOMETER DEV NAME(LOC) 6N.2; GLUCOSE,POINT OF CARE 240 MG/DL (70-110)
== END 2018-07-08 15:10 | disposition home or self-care (01) | DRG 305 ==
LOC: 6N 07:03 → UNDOADMIN 07:03 → 6N 07-06 07:23
PROVIDERS: ADMIT Surgery; ATTEND Surgery
PROC: 0Y6H0Z1 Detachment at Right Lower Leg, High, Open Approach (ICD-10-PCS; principal; 2018-07-06 10:00)
DX: S88.111A Complete traumatic amputation at level between knee and ankle, right lower leg, initial encounter (principal); E11.42 Type 2 diabetes mellitus with diabetic polyneuropathy; E11.51 Type 2 diabetes mellitus with diabetic peripheral angiopathy without gangrene; E11.8 Type 2 diabetes mellitus with unspecified complications; I10 Essential (primary) hypertension; N40.0 Benign prostatic hyperplasia without lower urinary tract symptoms; J44.9 Chronic obstructive pulmonary disease, unspecified; E78.5 Hyperlipidemia, unspecified; E11.69 Type 2 diabetes mellitus with other specified complication; F17.200 Nicotine dependence, unspecified, uncomplicated; G89.29 Other chronic pain; M86.9 Osteomyelitis, unspecified; Z79.4 Long term (current) use of insulin; Z82.49 Family history of ischemic heart disease and other diseases of the circulatory system; Z83.3 Family history of diabetes mellitus
CPT/HCPCS: 83735; 86850; 86900; 86901; 87081; 88304; 88311; 94640; G0378; J0690; J1170; J1650; J1885; J2250; J2270; J2405; J2704; J3010; J3490; J7040; J7120

== ENCOUNTER 2019-04-19 11:49 | Inpatient (IN) | payer MEDICAID ==
[~2019-04-19] VITALS: Ht 175.3 cm; Wt 113.6 kg
[~2019-04-19 11:49] MED LIST changes: +ATOR20TA65 PO; +DIPH25 PO; +LISI-660 PO; +LORA-1000 PO; +MORP15 PO; +MORP30 PO; -NORT25 PO; -SODIUM CHLORIDE 0.9% 1,000 ML IV ONE; -TAMS0.4C32 PO; +TRAZ-252 PO
[2019-04-19] MEDS ORDERED: RINGERS SOLUTION,LACTATED 1,000 ML IV ONE ×2 (12:00→12:13)
[2019-04-19 12:32] LABS: BASOPHILS % (AUTO) 0.6 % (0.0-2.0); EOSINOPHILS % (AUTO) 5.3 % (1.0-6.0); HEMATOCRIT 49.1 % (41-53); HEMOGLOBIN 16.2 g/dL (13.5-17.5); LYMPHOCYTES # (AUTO) 4.3 K/uL (1.0-4.8); LYMPHOCYTES % (AUTO) 37.3 % (22.0-44.0); MEAN CORPUSCULAR HEMOGLOBIN 29.3 pg (26.0-34.0); MEAN CORPUSCULAR VOLUME 89 fL (80-100); MONOCYTES # (AUTO) 1.1 K/uL (0.1-1.0); MONOCYTES % (AUTO) 9.3 % (2.0-9.0); NEUTROPHILS # (AUTO) 5.5 K/uL (1.8-7.7); NEUTROPHILS % (AUTO) 47.5 % (40.0-70.0); PLATELET COUNT (AUTO) 321 K/uL (150-450); RED BLOOD CELL COUNT(AUTO) 5.53 MIL/uL (4.50-5.90); RED CELL DISTRIBUTION WIDTH 15.1 % (11.5-14.5)
[2019-04-19 12:40] LABS: ANION GAP 10 mmol/L (8-16); CALCIUM, TOTAL 8.6 mg/dL (8.8-10.5); CARBON DIOXIDE 24 mmol/L (22-29); CHLORIDE 105 mmol/L (98-107); CREATININE 0.91 mg/dL (0.60-1.30); GLOMERULAR FILTR. RATE CALC > 60 mL/min (>60); GLUCOSE,RANDOM 99 mg/dL (70-110); POTASSIUM 4.2 mmol/L (3.5-5.1); SODIUM SERUM 139 mmol/L (136-145); UREA NITROGEN, BLOOD 11 mg/dL (7-18)
[2019-04-19 12:50] LABS: ALANINE AMINOTRANSFERASE 25 U/L (12-78); ALBUMIN 3.4 g/dL (3.4-5.0); ALKALINE PHOSPHATASE 66 U/L (46-116); ASPARTATE AMINOTRANSFERASE 18 U/L (15-37); BILIRUBIN,TOTAL 0.2 mg/dL (0.1-1.0); TOTAL PROTEIN, SERUM 7.4 g/dL (6.4-8.2)
[2019-04-19 13:03] LABS: PROTHROMBIN TIME 9.9 SEC (9.4-11.6)
[2019-04-19 13:30] VITALS: BP 133/96
[2019-04-19] MEDS ORDERED: LIDOCAINE/PF 1% 30 ML VIAL ONE (14:45)
[2019-04-19] MEDS ORDERED: BUPIVACAINE HCL/PF 0.25% 30 ML VIAL ONE (14:45)
[2019-04-19] MEDS ORDERED: MAGNESIUM HYDROXIDE SUSPENSION 30 ML UDCUP PO PRN (18:15)
[2019-04-19] MEDS ORDERED: 0.9% SODIUM CHLORIDE 10 ML SYRINGE IVP PRN (18:15)
[2019-04-19] MEDS ORDERED: ZOLPIDEM TARTRATE 10 MG TABLET PO PRN (18:15)
[2019-04-19] MEDS ORDERED: OxyCODONE HCL/ACETAMINOPHEN 5-325 MG TABLET PO PRN (18:15)
[2019-04-19] MEDS ORDERED: BISACODYL 10 MG RECTAL RECTAL SUPPOSITORY PR PRN (18:15)
[2019-04-19] MEDS ORDERED: ONDANSETRON HCL 4 MG/2 ML VIAL IVP PRN (18:15)
[2019-04-19] MEDS ORDERED: ACETAMINOPHEN 325 MG TABLET PO PRN (18:15)
[2019-04-19] MEDS ORDERED: FentaNYL CITRATE-PF 100 MCG/2 ML VIAL ONE ×2 (18:19→18:44)
[2019-04-19] MEDS ORDERED: HYDROmorphone 2 MG/ML SYRINGE ONE (18:19)
[2019-04-19] MEDS: HYDROmorphone 2 MG/ML SYRINGE IVP PRN ×6 (18:20→21:03)
[2019-04-19] MEDS: FentaNYL CITRATE-PF 100 MCG/2 ML VIAL IVP PRN ×4 (18:21→18:50)
[2019-04-19] MEDS ORDERED: ACETAMINOPHEN 1000 MG/ISO-OSM 100 ML IV ONE (18:24)
[2019-04-19] MEDS ORDERED: KETOROLAC TROMETHAMINE 30 MG/ML VIAL ONE (18:24)
[2019-04-19] MEDS ORDERED: KETOROLAC TROMETHAMINE 30 MG/ML VIAL IVP STA (18:25)
[2019-04-19] MEDS ORDERED: DEXTROSE 50%-WATER 25 GM/50 ML SYRINGE IVP PRN (18:30)
[2019-04-19] MEDS ORDERED: ACETAMINOPHEN 1000 MG/ISO-OSM 100 ML IV STA (18:39)
[2019-04-19] MEDS ORDERED: OXYGEN THERAPY IH SCH (20:00)
[2019-04-19 21:00] VITALS: BP 139/78
[2019-04-19] MEDS: TraZODone HCL 50 MG TABLET PO SCH (21:01)
[2019-04-19] MEDS: DiphenhydrAMINE HCL 25 MG CAPSULE PO SCH (21:01)
[2019-04-19] MEDS: MORPHINE SULFATE 30 MG ER TABLET PO SCH (21:02)
[2019-04-19] MEDS: LORazepam 1 MG TABLET PO SCH (21:02)
[2019-04-19] MEDS: DOCUSATE SODIUM 100 MG CAPSULE PO SCH (21:02)
[2019-04-19] MEDS: GABAPENTIN 300 MG CAPSULE PO SCH (21:02)
[2019-04-20 00:28] VITALS: BP 145/81
[2019-04-20] MEDS: HYDROmorphone 2 MG/ML SYRINGE IVP PRN ×7 (00:39→22:09)
[2019-04-20 04:11] VITALS: BP 136/93
[2019-04-20] MEDS ORDERED: ONDANSETRON HCL 4 MG/2 ML VIAL IVP ONE (05:35)
[2019-04-20] MEDS ORDERED: LIDOCAINE/PF 2% 5 ML VIAL IM ONE (05:35)
[2019-04-20] MEDS ORDERED: PROPOFOL 1% 20 ML VIAL IVP ONE (05:35)
[2019-04-20] MEDS ORDERED: FentaNYL CITRATE-PF 100 MCG/2 ML VIAL IVP ONE (05:35)
[2019-04-20] MEDS ORDERED: MIDAZOLAM HCL 2 MG/2 ML VIAL IVP ONE (05:35)
[2019-04-20 06:02] LABS: GLUCOMETER DEV NAME(LOC) 4E.2; GLUCOSE,POINT OF CARE 163 MG/DL (70-110)
[2019-04-20 06:02] LABS: GLUCOMETER DEV NAME(LOC) 4E.2; GLUCOSE,POINT OF CARE 109 MG/DL (70-110)
[2019-04-20 06:58] LABS: BASOPHILS % (AUTO) 0.7 % (0.0-2.0); EOSINOPHILS % (AUTO) 4.6 % (1.0-6.0); HEMATOCRIT 47.6 % (41-53); HEMOGLOBIN 15.5 g/dL (13.5-17.5); LYMPHOCYTES # (AUTO) 4.7 K/uL (1.0-4.8); LYMPHOCYTES % (AUTO) 37.7 % (22.0-44.0); MEAN CORPUSCULAR HEMOGLOBIN 29.3 pg (26.0-34.0); MEAN CORPUSCULAR HGB CONC 32.6 G/dL (31.0-37.0); MEAN CORPUSCULAR VOLUME 90 fL (80-100); MONOCYTES # (AUTO) 1.3 K/uL (0.1-1.0); MONOCYTES % (AUTO) 10.7 % (2.0-9.0); NEUTROPHILS # (AUTO) 5.7 K/uL (1.8-7.7); NEUTROPHILS % (AUTO) 46.3 % (40.0-70.0); PLATELET COUNT (AUTO) 273 K/uL (150-450); RED BLOOD CELL COUNT(AUTO) 5.29 MIL/uL (4.50-5.90); RED CELL DISTRIBUTION WIDTH 14.8 % (11.5-14.5)
[2019-04-20 07:14] LABS: ANION GAP 8 mmol/L (8-16); CALCIUM, TOTAL 8.7 mg/dL (8.8-10.5); CARBON DIOXIDE 26 mmol/L (22-29); CHLORIDE 102 mmol/L (98-107); CREATININE 1.05 mg/dL (0.60-1.30); GLOMERULAR FILTR. RATE CALC > 60 mL/min (>60); GLUCOSE,RANDOM 141 mg/dL (70-110); POTASSIUM 4.5 mmol/L (3.5-5.1); SODIUM SERUM 136 mmol/L (136-145); UREA NITROGEN, BLOOD 13 mg/dL (7-18)
[2019-04-20 07:28] VITALS: BP 146/83
[2019-04-20] MEDS: INSULIN REGULAR, HUMAN 100 UNITS/ML SQ PRN ×4 (07:31→20:44)
[2019-04-20] MEDS ORDERED: ENOXAPARIN SODIUM 40 MG/0.4 ML PF SYRINGE SQ SCH (09:00)
[2019-04-20] MEDS: ENOXAPARIN SODIUM 40 MG/0.4 ML PF SYRINGE SQ SCH (09:28)
[2019-04-20] MEDS: MetFORMIN HCL 500 MG TABLET PO SCH ×2 (09:28→17:17)
[2019-04-20] MEDS: GABAPENTIN 300 MG CAPSULE PO SCH ×2 (09:29→17:17)
[2019-04-20] MEDS: MORPHINE SULFATE 15 MG ER TABLET PO SCH (09:29)
[2019-04-20] MEDS: DOCUSATE SODIUM 100 MG CAPSULE PO SCH ×2 (09:29→20:38)
[2019-04-20] MEDS: ATORVASTATIN CALCIUM 20 MG TABLET PO SCH (09:29)
[2019-04-20] MEDS: LISINOPRIL 5 MG TABLET PO SCH (09:30)
[2019-04-20 11:15] VITALS: BP 147/92
[2019-04-20 13:35] LABS: GLUCOMETER DEV NAME(LOC) 4E.2; GLUCOSE,POINT OF CARE 180 MG/DL (70-110)
[2019-04-20 15:10] VITALS: BP 143/79
[2019-04-20 20:27] VITALS: BP 141/90
[2019-04-20] MEDS: TraZODone HCL 50 MG TABLET PO SCH (20:37)
[2019-04-20] MEDS: DiphenhydrAMINE HCL 25 MG CAPSULE PO SCH (20:37)
[2019-04-20] MEDS: MORPHINE SULFATE 30 MG ER TABLET PO SCH (20:37)
[2019-04-20 20:38] LABS: GLUCOMETER DEV NAME(LOC) 4E.2; GLUCOSE,POINT OF CARE 170 MG/DL (70-110)
[2019-04-20] MEDS: LORazepam 1 MG TABLET PO SCH (20:38)
[2019-04-20] MEDS ORDERED: INSULIN GLARGINE,HUM.REC.ANLOG 100 UNITS/ML SQ SCH (21:00)
[2019-04-21 00:19] VITALS: BP 120/77
[2019-04-21] MEDS: GABAPENTIN 300 MG CAPSULE PO SCH ×3 (00:20→15:43)
[2019-04-21] MEDS: HYDROmorphone 2 MG/ML SYRINGE IVP PRN ×5 (00:21→15:44)
[2019-04-21 00:33] LABS: GLUCOMETER DEV NAME(LOC) 6N.2; GLUCOSE,POINT OF CARE 180 MG/DL (70-110)
[2019-04-21 05:14] VITALS: BP 123/53
[2019-04-21 08:25] VITALS: BP 124/74
[2019-04-21] MEDS: DOCUSATE SODIUM 100 MG CAPSULE PO SCH (09:00)
[2019-04-21] MEDS ORDERED: INSULIN GLARGINE,HUM.REC.ANLOG 100 UNITS/ML SQ SCH (09:00)
[2019-04-21] MEDS: MORPHINE SULFATE 15 MG ER TABLET PO SCH (09:09)
[2019-04-21] MEDS: ENOXAPARIN SODIUM 40 MG/0.4 ML PF SYRINGE SQ SCH (09:30)
[2019-04-21] MEDS: MetFORMIN HCL 500 MG TABLET PO SCH ×2 (09:33→17:23)
[2019-04-21] MEDS: ATORVASTATIN CALCIUM 20 MG TABLET PO SCH (09:33)
[2019-04-21] MEDS: LISINOPRIL 5 MG TABLET PO SCH (09:33)
[2019-04-21 11:46] VITALS: BP 116/78
[2019-04-21 11:57] LABS: GLUCOMETER DEV NAME(LOC) 6N.2; GLUCOSE,POINT OF CARE 177 MG/DL (70-110)
[2019-04-21 11:57] LABS: GLUCOMETER DEV NAME(LOC) 6N.2; GLUCOSE,POINT OF CARE 139 MG/DL (70-110)
[2019-04-21] MEDS: INSULIN REGULAR, HUMAN 100 UNITS/ML SQ PRN (12:09)
[2019-04-21 15:33] VITALS: BP 141/108
[2019-04-21 17:44] LABS: GLUCOMETER DEV NAME(LOC) 4E.2; GLUCOSE,POINT OF CARE 136 MG/DL (70-110)
== END 2019-04-21 19:00 | disposition home or self-care (01) | DRG 313 ==
LOC: 4E 11:49
PROVIDERS: ADMIT Surgery; ATTEND Surgery
PROC: 0QBH0ZZ Excision of Left Tibia, Open Approach (ICD-10-PCS; principal; 2019-04-19 14:00)
DX: T87.89 Other complications of amputation stump (principal); E11.69 Type 2 diabetes mellitus with other specified complication; K74.60 Unspecified cirrhosis of liver; M86.8X7 Other osteomyelitis, ankle and foot; G89.18 Other acute postprocedural pain; E78.5 Hyperlipidemia, unspecified; Y83.8 Other surgical procedures as the cause of abnormal reaction of the patient, or of later complication, without mention of misadventure at the time of the procedure; I10 Essential (primary) hypertension; I25.10 Atherosclerotic heart disease of native coronary artery without angina pectoris; Z89.511 Acquired absence of right leg below knee; Z87.891 Personal history of nicotine dependence; Z89.512 Acquired absence of left leg below knee
CPT/HCPCS: 88300; 93005; G0378; J0131; J1170; J1650; J1815; J1885; J2250; J2405; J2704; J3010; J3490; J7120

== ENCOUNTER 2019-06-21 19:46 | Inpatient (IN) | payer MEDICAID ==
[~2019-06-21] VITALS: Ht 157.5 cm; Wt 128.2 kg
[~2019-06-21 19:46] MED LIST changes: -HYDR-4455 PO
[2019-06-21 21:27] LABS: GLUCOSE,POINT OF CARE 264 MG/DL (70-110)
[2019-06-21] MEDS ORDERED: SODIUM CHLORIDE 0.9% 500 ML IV ONE (22:00)
[2019-06-21] MEDS ORDERED: VANCOMYCIN HCL 1 GM/D5% WATER 200 ML IV ONE (22:00)
[2019-06-21] MEDS ORDERED: PIPERACILLIN/TAZO 3.375 GM/D5W 50 ML IV ONE (22:00)
[2019-06-21] MEDS ORDERED: 0.9% SODIUM CHLORIDE 10 ML SYRINGE IVP PRN ×2 (22:00→23:30)
[2019-06-21 22:19] LABS: BASOPHILS % (AUTO) 0.9 % (0.0-2.0); EOSINOPHILS % (AUTO) 3.9 % (1.0-6.0); HEMATOCRIT 40.5 % (41-53); HEMOGLOBIN 13.4 g/dL (13.5-17.5); LYMPHOCYTES # (AUTO) 6.3 K/uL (1.0-4.8); LYMPHOCYTES % (AUTO) 41.3 % (22.0-44.0); MEAN CORPUSCULAR HEMOGLOBIN 28.1 pg (26.0-34.0); MEAN CORPUSCULAR HGB CONC 33.2 G/dL (31.0-37.0); MEAN CORPUSCULAR VOLUME 85 fL (80-100); MONOCYTES # (AUTO) 1.3 K/uL (0.1-1.0); MONOCYTES % (AUTO) 8.6 % (2.0-9.0); NEUTROPHILS # (AUTO) 6.9 K/uL (1.8-7.7); NEUTROPHILS % (AUTO) 45.3 % (40.0-70.0); PLATELET COUNT (AUTO) 488 K/uL (150-450); RED BLOOD CELL COUNT(AUTO) 4.78 MIL/uL (4.50-5.90); RED CELL DISTRIBUTION WIDTH 13.6 % (11.5-14.5)
[2019-06-21 22:31] LABS: ANION GAP 11 mmol/L (8-16); CALCIUM, TOTAL 9.5 mg/dL (8.8-10.5); CARBON DIOXIDE 24 mmol/L (22-29); CHLORIDE 101 mmol/L (98-107); CREATININE 1.25 mg/dL (0.60-1.30); GLOMERULAR FILTR. RATE CALC > 60 mL/min (>60); GLUCOSE,RANDOM 262 mg/dL (70-110); POTASSIUM 4.2 mmol/L (3.5-5.1); SODIUM SERUM 136 mmol/L (136-145); UREA NITROGEN, BLOOD 14 mg/dL (7-18)
[2019-06-21] MEDS ORDERED: DULO30CA2 PO (22:39)
[2019-06-21] MEDS ORDERED: INSU100V SQ ×2 (22:39)
[2019-06-21] MEDS ORDERED: ASPI-1111 PO (22:39)
[2019-06-21] MEDS ORDERED: [UNRECOGNIZED DRUG - CODE] SQ (22:39)
[2019-06-21] MEDS ORDERED: GABA-531 PO (22:39)
[2019-06-21] MEDS ORDERED: CEFA2IV IV (22:39)
[2019-06-21] MEDS ORDERED: HYD25 PO (22:39)
[2019-06-21] MEDS ORDERED: ALBU8.5H8 IH (22:39)
[2019-06-21] MEDS ORDERED: TAMS-13 PO (22:39)
[2019-06-21 22:44] LABS: ALANINE AMINOTRANSFERASE 27 U/L (12-78); ALKALINE PHOSPHATASE 139 U/L (46-116); ASPARTATE AMINOTRANSFERASE 22 U/L (15-37); BILIRUBIN,TOTAL 0.2 mg/dL (0.1-1.0); TOTAL PROTEIN, SERUM 8.1 g/dL (6.4-8.2)
[2019-06-21 22:45] LABS: ALBUMIN 3.5 g/dL (3.4-5.0)
[2019-06-21 22:51] LABS: PROTHROMBIN TIME 9.9 SEC (9.4-11.6)
[2019-06-21] MEDS ORDERED: MORPHINE SULFATE 4 MG/ML SYRINGE IVP ONE (23:15)
[2019-06-21] MEDS ORDERED: OxyCODONE HCL/ACETAMINOPHEN 5-325 MG TABLET PO PRN (23:30)
[2019-06-21] MEDS ORDERED: MAGNESIUM HYDROXIDE SUSPENSION 30 ML UDCUP PO PRN (23:30)
[2019-06-21] MEDS ORDERED: ACETAMINOPHEN 325 MG TABLET PO PRN ×2 (23:30)
[2019-06-21] MEDS ORDERED: ONDANSETRON HCL 4 MG/2 ML VIAL IVP PRN (23:30)
[2019-06-21] MEDS ORDERED: DEXTROSE 50%-WATER 25 GM/50 ML SYRINGE IVP PRN (23:30)
[2019-06-22 00:58] LABS: GLUCOSE,POINT OF CARE 310 MG/DL (70-110)
[2019-06-22 01:31] VITALS: BP 123/81
[2019-06-22] MEDS: MORPHINE SULFATE 2 MG/ML SYRINGE IVP PRN ×4 (01:43→20:50)
[2019-06-22] MEDS: INSULIN LISPRO 100 UNITS/ML SQ PRN ×5 (01:45→21:28)
[2019-06-22] MEDS ORDERED: PNEUMOCOCCAL VACCINE POLYVALENT 0.5 ML VIAL [PPSV23] IM ONE (05:15)
[2019-06-22] MEDS: PIPERACILLIN/TAZO 3.375 GM/D5W 50 ML IV SCH ×2 (05:51→11:27)
[2019-06-22] MEDS ORDERED: VANCOMYCIN HCL 1.5 GM in DEXTROSE 5%-WATER 250 ML IV SCH (07:00)
[2019-06-22 08:03] VITALS: BP 105/79
[2019-06-22] MEDS: ASPIRIN 81 MG CHEWABLE TABLET PO SCH (08:59)
[2019-06-22] MEDS: FAMOTIDINE 20 MG TABLET PO SCH (08:59)
[2019-06-22] MEDS: ATORVASTATIN CALCIUM 20 MG TABLET PO SCH (09:00)
[2019-06-22] MEDS: DOCUSATE SODIUM 100 MG CAPSULE PO SCH ×2 (09:00→20:49)
[2019-06-22 12:02] VITALS: BP 114/85
[2019-06-22] MEDS ORDERED: GADOBUTROL 1 MMOL/ML 10 ML VIAL IVP ONE (13:55)
[2019-06-22] MEDS ORDERED: LORazepam 2 MG/ML VIAL IVP ONE (14:30)
[2019-06-22 15:05] VITALS: BP 130/75
[2019-06-22] MEDS: GABAPENTIN 300 MG CAPSULE PO SCH ×2 (16:08→20:49)
[2019-06-22] MEDS: CeFAZolin 2 GM/DEXTROSE 50 ML IV SCH (17:46)
[2019-06-22 19:52] VITALS: BP 102/79
[2019-06-22] MEDS: ASCORBIC ACID 500 MG TABLET PO SCH (20:49)
[2019-06-23] VITALS (7 sets, daily range): BP systolic 113–129; BP diastolic 54–92
[2019-06-23] MEDS: MORPHINE SULFATE 2 MG/ML SYRINGE IVP PRN ×2 (01:04→08:30)
[2019-06-23] MEDS: CeFAZolin 2 GM/DEXTROSE 50 ML IV SCH ×3 (01:05→17:02)
[2019-06-23] MEDS: INSULIN LISPRO 100 UNITS/ML SQ PRN ×4 (05:10→20:51)
[2019-06-23] MEDS: DOCUSATE SODIUM 100 MG CAPSULE PO SCH ×2 (08:28→20:39)
[2019-06-23] MEDS: ATORVASTATIN CALCIUM 20 MG TABLET PO SCH (08:28)
[2019-06-23] MEDS: MULTIVITAMINS WITH MINERALS, THERAPEUTIC TABLET PO SCH (08:28)
[2019-06-23] MEDS: GABAPENTIN 300 MG CAPSULE PO SCH ×3 (08:28→20:38)
[2019-06-23] MEDS: ASPIRIN 81 MG CHEWABLE TABLET PO SCH (08:28)
[2019-06-23] MEDS: ASCORBIC ACID 500 MG TABLET PO SCH ×2 (08:29→20:39)
[2019-06-23] MEDS: FAMOTIDINE 20 MG TABLET PO SCH (08:29)
[2019-06-23] MEDS: MORPHINE SULFATE 4 MG/ML SYRINGE IVP PRN ×3 (13:36→21:54)
[2019-06-24] MEDS: MORPHINE SULFATE 4 MG/ML SYRINGE IVP PRN ×5 (02:03→19:53)
[2019-06-24] MEDS: CeFAZolin 2 GM/DEXTROSE 50 ML IV SCH ×2 (02:10→08:06)
[2019-06-24 04:23] VITALS: BP 111/62
[2019-06-24] MEDS: INSULIN LISPRO 100 UNITS/ML SQ PRN ×4 (07:03→21:05)
[2019-06-24 07:32] VITALS: BP 111/63
[2019-06-24] MEDS: ASCORBIC ACID 500 MG TABLET PO SCH ×2 (08:05→20:07)
[2019-06-24] MEDS: FAMOTIDINE 20 MG TABLET PO SCH (08:05)
[2019-06-24] MEDS: GABAPENTIN 300 MG CAPSULE PO SCH ×3 (08:05→20:06)
[2019-06-24] MEDS: MULTIVITAMINS WITH MINERALS, THERAPEUTIC TABLET PO SCH (08:05)
[2019-06-24] MEDS: ATORVASTATIN CALCIUM 20 MG TABLET PO SCH (08:06)
[2019-06-24] MEDS: DOCUSATE SODIUM 100 MG CAPSULE PO SCH ×2 (08:06→20:06)
[2019-06-24] MEDS: ASPIRIN 81 MG CHEWABLE TABLET PO SCH (08:06)
[2019-06-24 11:20] VITALS: BP 133/92
[2019-06-24] MEDS ORDERED: CEFEPIME HCL 2 GM in DEXTROSE 5%-WATER 50 ML IV SCH (12:15)
[2019-06-24 13:00] LABS: BASOPHILS % (AUTO) 1.1 % (0.0-2.0); EOSINOPHILS % (AUTO) 5.5 % (1.0-6.0); HEMATOCRIT 39.1 % (41-53); HEMOGLOBIN 12.8 g/dL (13.5-17.5); LYMPHOCYTES # (AUTO) 5.5 K/uL (1.0-4.8); LYMPHOCYTES % (AUTO) 45.7 % (22.0-44.0); MEAN CORPUSCULAR HEMOGLOBIN 27.8 pg (26.0-34.0); MEAN CORPUSCULAR HGB CONC 32.7 G/dL (31.0-37.0); MEAN CORPUSCULAR VOLUME 85 fL (80-100); MONOCYTES # (AUTO) 1.3 K/uL (0.1-1.0); MONOCYTES % (AUTO) 10.7 % (2.0-9.0); NEUTROPHILS # (AUTO) 4.5 K/uL (1.8-7.7); PLATELET COUNT (AUTO) 463 K/uL (150-450); RED CELL DISTRIBUTION WIDTH 13.5 % (11.5-14.5)
[2019-06-24 15:20] VITALS: BP 125/82
[2019-06-24] MEDS: PIPERACILLIN SODIUM/TAZOBACTAM 4.5 GM in DEXTROSE 5%-WATER 100 ML IV SCH (20:01)
[2019-06-24 20:03] VITALS: BP 114/83
[2019-06-24] MEDS: OxyCODONE HCL/ACETAMINOPHEN 5-325 MG TABLET PO PRN (22:20)
[2019-06-24 23:53] VITALS: BP 108/53
[2019-06-25] MEDS: MORPHINE SULFATE 4 MG/ML SYRINGE IVP PRN ×5 (02:11→22:20)
[2019-06-25] MEDS: PIPERACILLIN SODIUM/TAZOBACTAM 4.5 GM in DEXTROSE 5%-WATER 100 ML IV SCH ×4 (02:15→20:27)
[2019-06-25 05:26] VITALS: BP 100/57
[2019-06-25] MEDS: INSULIN LISPRO 100 UNITS/ML SQ PRN ×4 (06:31→20:28)
[2019-06-25 08:06] VITALS: BP 112/83
[2019-06-25] MEDS: ASPIRIN 81 MG CHEWABLE TABLET PO SCH (08:12)
[2019-06-25] MEDS: ATORVASTATIN CALCIUM 20 MG TABLET PO SCH (08:12)
[2019-06-25] MEDS: ASCORBIC ACID 500 MG TABLET PO SCH ×2 (08:12→20:26)
[2019-06-25] MEDS: DOCUSATE SODIUM 100 MG CAPSULE PO SCH ×2 (08:12→20:26)
[2019-06-25] MEDS: GABAPENTIN 300 MG CAPSULE PO SCH ×3 (08:12→20:26)
[2019-06-25] MEDS: FAMOTIDINE 20 MG TABLET PO SCH (08:13)
[2019-06-25] MEDS: MULTIVITAMINS WITH MINERALS, THERAPEUTIC TABLET PO SCH (08:13)
[2019-06-25] MEDS: OxyCODONE HCL/ACETAMINOPHEN 5-325 MG TABLET PO PRN ×2 (10:11→20:27)
[2019-06-25 11:25] VITALS: BP 139/79
[2019-06-25 16:07] VITALS: BP 120/79
[2019-06-25 20:50] VITALS: BP 121/73
[2019-06-25 23:55] VITALS: BP 137/80
[2019-06-26] MEDS ORDERED: SODIUM CHLORIDE 0.9% 500 ML IV ONE (02:20)
[2019-06-26] MEDS: PIPERACILLIN SODIUM/TAZOBACTAM 4.5 GM in DEXTROSE 5%-WATER 100 ML IV SCH ×2 (02:45→08:24)
[2019-06-26] MEDS: MORPHINE SULFATE 4 MG/ML SYRINGE IVP PRN ×6 (02:45→23:16)
[2019-06-26] MEDS: INSULIN LISPRO 100 UNITS/ML SQ PRN ×4 (06:24→21:20)
[2019-06-26 07:35] VITALS: BP 123/76
[2019-06-26] MEDS: FAMOTIDINE 20 MG TABLET PO SCH (08:23)
[2019-06-26] MEDS: ASCORBIC ACID 500 MG TABLET PO SCH ×2 (08:23→21:12)
[2019-06-26] MEDS: ATORVASTATIN CALCIUM 20 MG TABLET PO SCH (08:24)
[2019-06-26] MEDS: GABAPENTIN 300 MG CAPSULE PO SCH ×3 (08:24→21:12)
[2019-06-26] MEDS: ASPIRIN 81 MG CHEWABLE TABLET PO SCH (08:24)
[2019-06-26] MEDS: MULTIVITAMINS WITH MINERALS, THERAPEUTIC TABLET PO SCH (08:24)
[2019-06-26] MEDS: DOCUSATE SODIUM 100 MG CAPSULE PO SCH ×2 (08:28→21:12)
[2019-06-26] MEDS: OxyCODONE HCL/ACETAMINOPHEN 5-325 MG TABLET PO PRN ×2 (09:20→17:26)
[2019-06-26 11:38] VITALS: BP 118/65
[2019-06-26] MEDS ORDERED: AMIT50TA3 PO (13:30)
[2019-06-26] MEDS: CeFAZolin 2 GM/DEXTROSE 50 ML IV SCH ×2 (14:54→23:21)
[2019-06-26] MEDS: LEVOFLOXACIN 250 MG TABLET PO SCH (14:54)
[2019-06-26 20:09] VITALS: BP 107/72
[2019-06-26 23:16] VITALS: BP 110/68
[2019-06-27 05:00] VITALS: BP 126/75
[2019-06-27] MEDS: MORPHINE SULFATE 4 MG/ML SYRINGE IVP PRN ×4 (05:02→17:41)
[2019-06-27 06:08] LABS: HEMOGLOBIN A1C 8.5 % (4.5-6.2)
[2019-06-27 06:26] LABS: ALANINE AMINOTRANSFERASE 26 U/L (12-78); ALBUMIN 3.4 g/dL (3.4-5.0); ALKALINE PHOSPHATASE 115 U/L (46-116); ANION GAP 9 mmol/L (8-16); ASPARTATE AMINOTRANSFERASE 20 U/L (15-37); BILIRUBIN,TOTAL 0.2 mg/dL (0.1-1.0); CARBON DIOXIDE 27 mmol/L (22-29); CHLORIDE 102 mmol/L (98-107); CREATININE 1.13 mg/dL (0.60-1.30); GLOMERULAR FILTR. RATE CALC > 60 mL/min (>60); GLUCOSE,RANDOM 225 mg/dL (70-110); POTASSIUM 4.1 mmol/L (3.5-5.1); SODIUM SERUM 138 mmol/L (136-145); TOTAL PROTEIN, SERUM 7.4 g/dL (6.4-8.2)
[2019-06-27 06:31] LABS: UREA NITROGEN, BLOOD 19 mg/dL (7-18)
[2019-06-27] MEDS: INSULIN LISPRO 100 UNITS/ML SQ PRN ×3 (06:35→17:03)
[2019-06-27 07:27] VITALS: BP 130/74
[2019-06-27] MEDS: MULTIVITAMINS WITH MINERALS, THERAPEUTIC TABLET PO SCH (08:01)
[2019-06-27] MEDS: ASPIRIN 81 MG CHEWABLE TABLET PO SCH (08:01)
[2019-06-27] MEDS: CeFAZolin 2 GM/DEXTROSE 50 ML IV SCH (08:01)
[2019-06-27] MEDS: GABAPENTIN 300 MG CAPSULE PO SCH ×2 (08:02→16:11)
[2019-06-27] MEDS: FAMOTIDINE 20 MG TABLET PO SCH (08:02)
[2019-06-27] MEDS: ASCORBIC ACID 500 MG TABLET PO SCH (08:02)
[2019-06-27] MEDS: DOCUSATE SODIUM 100 MG CAPSULE PO SCH ×2 (08:02→09:00)
[2019-06-27] MEDS: ATORVASTATIN CALCIUM 20 MG TABLET PO SCH (08:02)
[2019-06-27] MEDS: LEVOFLOXACIN 250 MG TABLET PO SCH (08:05)
[2019-06-27] MEDS ORDERED: DAPTOMYCIN 500 MG in SODIUM CHLORIDE 0.9% 50 ML IV SCH (12:00)
[2019-06-27] MEDS: OxyCODONE HCL/ACETAMINOPHEN 5-325 MG TABLET PO PRN (12:03)
[2019-06-27 12:27] VITALS: BP 128/78
[2019-06-27] MEDS ORDERED: DAPT500V8 IV (13:00)
[2019-06-27] MEDS ORDERED: LEVO250T75 PO (13:01)
[2019-06-27] MEDS ORDERED: MORP15 PO (13:03)
[2019-06-27 15:34] LABS: CREATINE KINASE, TOTAL ONLY 86 U/L (39-308)
[2019-06-27 15:57] VITALS: BP 121/75
[2019-07-02 20:46] LABS: GLUCOMETER DEV NAME(LOC) 4E.2; GLUCOSE,POINT OF CARE 235 MG/DL (70-110)
[2019-07-02 20:46] LABS: GLUCOMETER DEV NAME(LOC) 4E.2; GLUCOSE,POINT OF CARE 212 MG/DL (70-110)
[2019-07-02 20:46] LABS: GLUCOMETER DEV NAME(LOC) 4E.2; GLUCOSE,POINT OF CARE 167 MG/DL (70-110)
[2019-07-02 20:46] LABS: GLUCOMETER DEV NAME(LOC) 4E.2; GLUCOSE,POINT OF CARE 145 MG/DL (70-110)
[2019-07-02 20:46] LABS: GLUCOMETER DEV NAME(LOC) 4E.2; GLUCOSE,POINT OF CARE 224 MG/DL (70-110)
[2019-07-02 20:46] LABS: GLUCOMETER DEV NAME(LOC) 4E.2; GLUCOSE,POINT OF CARE 160 MG/DL (70-110)
[2019-07-02 20:46] LABS: GLUCOMETER DEV NAME(LOC) 4E.2; GLUCOSE,POINT OF CARE 263 MG/DL (70-110)
[2019-07-02 20:46] LABS: GLUCOMETER DEV NAME(LOC) 4E.2; GLUCOSE,POINT OF CARE 173 MG/DL (70-110)
[2019-07-02 20:47] LABS: GLUCOMETER DEV NAME(LOC) 4E.2; GLUCOSE,POINT OF CARE 214 MG/DL (70-110)
[2019-07-02 20:47] LABS: GLUCOMETER DEV NAME(LOC) 4E.2; GLUCOSE,POINT OF CARE 208 MG/DL (70-110)
[2019-07-02 20:47] LABS: GLUCOMETER DEV NAME(LOC) 4E.2; GLUCOSE,POINT OF CARE 219 MG/DL (70-110)
[2019-07-02 20:47] LABS: GLUCOMETER DEV NAME(LOC) 4E.2; GLUCOSE,POINT OF CARE 213 MG/DL (70-110)
[2019-07-02 20:47] LABS: GLUCOMETER DEV NAME(LOC) 4E.2; GLUCOSE,POINT OF CARE 214 MG/DL (70-110)
[2019-07-02 20:48] LABS: GLUCOMETER DEV NAME(LOC) 4E.2; GLUCOSE,POINT OF CARE 210 MG/DL (70-110)
[2019-07-02 20:48] LABS: GLUCOMETER DEV NAME(LOC) 4E.2; GLUCOSE,POINT OF CARE 241 MG/DL (70-110)
[2019-07-02 20:48] LABS: GLUCOMETER DEV NAME(LOC) 4E.2; GLUCOSE,POINT OF CARE 236 MG/DL (70-110)
[2019-07-02 20:48] LABS: GLUCOMETER DEV NAME(LOC) 4E.2; GLUCOSE,POINT OF CARE 178 MG/DL (70-110)
[2019-07-02 20:48] LABS: GLUCOMETER DEV NAME(LOC) 4E.2; GLUCOSE,POINT OF CARE 290 MG/DL (70-110)
[2019-07-02 20:48] LABS: GLUCOMETER DEV NAME(LOC) 4E.2; GLUCOSE,POINT OF CARE 188 MG/DL (70-110)
[2019-07-02 20:48] LABS: GLUCOMETER DEV NAME(LOC) 4E.2; GLUCOSE,POINT OF CARE 183 MG/DL (70-110)
[2019-07-02 20:48] LABS: GLUCOMETER DEV NAME(LOC) 4E.2; GLUCOSE,POINT OF CARE 159 MG/DL (70-110)
[2019-07-02 20:49] LABS: GLUCOMETER DEV NAME(LOC) 4E.2; GLUCOSE,POINT OF CARE 239 MG/DL (70-110)
[2019-07-02 20:49] LABS: GLUCOMETER DEV NAME(LOC) 4E.2; GLUCOSE,POINT OF CARE 178 MG/DL (70-110)
== END 2019-06-27 18:50 | disposition home or self-care (01) | DRG 349 ==
LOC: EMS 19:48 → 4E 06-22 00:12
PROVIDERS: ADMIT Internal Medicine; ATTEND Internal Medicine
PROC: 3E0234Z Introduction of Serum, Toxoid and Vaccine into Muscle, Percutaneous Approach (ICD-10-PCS; principal; 2019-06-22)
DX: T87.44 Infection of amputation stump, left lower extremity (principal); E11.51 Type 2 diabetes mellitus with diabetic peripheral angiopathy without gangrene; E11.42 Type 2 diabetes mellitus with diabetic polyneuropathy; M86.172 Other acute osteomyelitis, left ankle and foot; E11.69 Type 2 diabetes mellitus with other specified complication; E11.65 Type 2 diabetes mellitus with hyperglycemia; E66.01 Morbid (severe) obesity due to excess calories; Z68.43 Body mass index [BMI] 50.0-59.9, adult; D64.9 Anemia, unspecified; F17.210 Nicotine dependence, cigarettes, uncomplicated; F12.90 Cannabis use, unspecified, uncomplicated; F10.20 Alcohol dependence, uncomplicated; Y90.9 Presence of alcohol in blood, level not specified; F41.9 Anxiety disorder, unspecified; E78.5 Hyperlipidemia, unspecified; Y83.5 Amputation of limb(s) as the cause of abnormal reaction of the patient, or of later complication, without mention of misadventure at the time of the procedure; I10 Essential (primary) hypertension; Z88.8 Allergy status to other drugs, medicaments and biological substances; Z79.82 Long term (current) use of aspirin; Z79.899 Other long term (current) drug therapy; Z91.19 Patient's noncompliance with other medical treatment and regimen; Z79.4 Long term (current) use of insulin; Z89.512 Acquired absence of left leg below knee; Z22.322 Carrier or suspected carrier of Methicillin resistant Staphylococcus aureus; Z23 Encounter for immunization; Z82.49 Family history of ischemic heart disease and other diseases of the circulatory system; Z83.3 Family history of diabetes mellitus; Z89.511 Acquired absence of right leg below knee
CPT/HCPCS: 73720; 83036; 83605; 87040; 87070; 87081; 87205; 90732; A9585; G0378; J0690; J0692; J0878; J2060; J2270; J2543; J3370; J7040; J7050; J7060

== ENCOUNTER 2023-10-07 23:46 | Emergency (ER) | payer MEDICAID ==
[~2023-10-07] VITALS: Ht 175.3 cm; Wt 97.7 kg
[~2023-10-07 23:46] MED LIST changes: +ALBU8.5H8 IH; +AMIT50TA3 PO; +ASPI-1444 PO; +DAPT500V8 IV; -DIPH25 PO; +DULO-114 PO; +GABA-1181 PO; -GABA-531 PO; +HYDR-4527 PO; -INSNOV SQ; +INSU100V SQ; +LEVO250T75 PO; -LISI-660 PO; +MORP-130 PO; +MORP-131 PO; -MORP15 PO; -MORP30 PO; +TAMS0.4C94 PO; -TRAZ-252 PO; +[UNRECOGNIZED DRUG - CODE] SQ
[2023-10-07 23:51] VITALS: BP 131/78; PULSE 105; RESP 16; TEMP 98.4
[2023-10-08] MEDS: MAGNESIUM CITRATE [LEMON] 300 ML ORAL SOLUTION PO ONE (00:43)
[2023-10-08] MEDS: PEG 3350/NA SULF,BICARB,CL/KCL 4000 ML SOLUTION PO ONE (02:53)
[2023-10-08] MEDS: MINERAL OIL 133 ML ENEMA PR ONE (03:34)
== END 2023-10-08 04:48 | disposition home or self-care (01) ==
LOC: EMS 23:47
DX: K59.00 Constipation, unspecified (principal); E11.9 Type 2 diabetes mellitus without complications; I10 Essential (primary) hypertension; F41.9 Anxiety disorder, unspecified; I51.9 Heart disease, unspecified; F17.210 Nicotine dependence, cigarettes, uncomplicated; F12.90 Cannabis use, unspecified, uncomplicated; Z86.14 Personal history of Methicillin resistant Staphylococcus aureus infection
CPT/HCPCS: 99284; Z7502; Z7610